=== PATIENT | female | born 1990 | race Caucasian/White ===

== ENCOUNTER 2019-08-25 11:25 | Emergency (ER) | payer OTHER ==
[2019-08-25 11:34] VITALS: BP 115/77
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
[2019-08-25] MEDS ORDERED: IBUPROFEN 600 MG TABLET PO STA (12:34)
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
== END 2019-08-25 13:48 | disposition home or self-care (01) ==
LOC: ED 11:25
DX: S93.402A Sprain of unspecified ligament of left ankle, initial encounter (principal); V00.818A Other accident with wheelchair (powered), initial encounter; Y93.01 Activity, walking, marching and hiking; Y99.0 Civilian activity done for income or pay
CPT/HCPCS: 1040M; 73610; 73630; 99283; A9270

== ENCOUNTER 2019-09-17 19:22 | Emergency (ER) | payer SELFPAY ==
[2019-09-17] MEDS ORDERED: HYDROcod/ACETAM 5/325 MG TABLET PO STA (19:41)
[2019-09-17] MEDS ORDERED: HYDROcod/ACET 5/325 Prepack 4 PO STA (19:41)
--- NOTE | 2019-09-17 19:42 | ED Physician Documentation ---
PD HPI LOWER EXT INJURY - Stated complaint Stated Complaint: RT FOOT INJURY - Chief complaint Chief Complaint: Trauma Ext - History obtained from History obtained from: Patient - History of Present Illness PD HPI LOW EXT INJURY LOCATION: Right (This morning she was walking and tripped and inverted her right foot and felt a pop and cannot walk or bear weight. No other injuries. Pain is severe. No possibility of .) Review of Systems Ears: reports: Reviewed and negative Cardiac: reports: Reviewed and negative Respiratory: reports: Reviewed and negative PD PAST MEDICAL HISTORY - Present Medications Home Medications: Ambulatory Orders Medication Instructions Recorded Confirmed Acetaminophen 650 mg PO Q6HR #30 tablet 08/25/19 Ibuprofen [Ibu] 600 mg PO Q6H PRN #30 tablet 08/25/19 Hydrocodone/Acetaminophen 1 - 2 each PO Q6H PRN #10 tablet 09/17/19 [Hydrocodon-Acetaminophen 5-325] - Allergies Allergies/Adverse Reactions: Allergies Allergy/AdvReac Type Severity Reaction Status Date / Time Penicillins Allergy Hives Verified 09/17/19 19:26 PD ED PE NORMAL - Vitals Vital signs reviewed: Yes - General General: Alert and oriented X 3, No acute distress - Extremities Extremities: Other (Proximal right fibula is nontender. She is very tender over the lateral malleolus and the fifth metatarsal head, no deformity. There is kind of diffuse swelling over the lateral proximal foot.) - Neuro Neuro: Alert and oriented X 3, Normal speech Results - Vitals Vitals: Vital Signs - 24 hr 09/17/19 19:26 Temperature 36.6 C Heart Rate 87 Respiratory 14 Rate Blood Pressure 120/71 O2 Saturation 100 Oxygen O2 Source Room air - Rads (name of study) X-rays of the right foot and ankle Radiology: EMP read contemporaneously (Normal) Departure - Departure Disposition: Home, Self Care Clinical Impression: Right foot sprain Qualifiers: Encounter type: initial encounter Qualified Code(s): S93.601A - Unspecified sprain of right foot, initial encounter Ankle sprain Qualifiers: Encounter type: initial encounter Involved ligament of ankle: unspecified ligament Laterality: right Qualified Code(s): S93.401A - Sprain of unspecified ligament of right ankle, initial encounter Condition: Good Record reviewed to determine appropriate education?: Yes Instructions: ED Sprain Ankle Prescriptions: Hydrocodone/Acetaminophen [Hydrocodon-Acetaminophen 5-325] 1 - 2 each PO Q6H PRN #10 tablet PRN Reason: pain Comments: Recheck with your doctor in a week if not better, return for new or worsening symptoms. Forms: Activity restrictions
--- NOTE | 2019-09-17 20:35 | XRAY Report ---
Reason: pain Procedure Date: 09/17/2019 Accession Number: [id number] / [id number] Procedure: XR - Ankle 3 View RT CPT Code: Final Report FULL RESULT: EXAM: RIGHT ANKLE RADIOGRAPHY EXAM DATE: 09/17/2019 07:55 PM. CLINICAL HISTORY: Pain. COMPARISON: ANKLE 3 VIEW LT 08/25/2019 11:37 AM FOOT 3 VIEW LT 08/25/2019 12:45 PM. TECHNIQUE: 3 views. FINDINGS: Bones: No acute fracture identified. There is a tiny plantar calcaneal spur. Joints: No effusion. No dislocation. The ankle mortise is normally aligned. Soft Tissues: There is mild soft tissue swelling. IMPRESSION: No acute osseus abnormality. RADIA
--- NOTE | 2019-09-17 20:43 | XRAY Report ---
Reason: foot inj Procedure Date: 09/17/2019 Accession Number: [id number] / [id number] Procedure: XR - Foot 3 View RT CPT Code: Final Report FULL RESULT: EXAM: RIGHT FOOT RADIOGRAPHY EXAM DATE: 09/17/2019 07:56 PM. CLINICAL HISTORY: Foot inj. COMPARISON: FOOT 3 VIEW LT 08/25/2019 12:45 PM ANKLE 3 VIEW RT 09/17/2019 7:33 PM. TECHNIQUE: 3 views. FINDINGS: Bones: No acute fracture identified. Joints: Normal. No subluxations. Soft Tissues: Mild soft tissue swelling. IMPRESSION: No acute osseus abnormality. RADIA
[2019-09-17 21:08] VITALS: BP 136/62
--- NOTE | 2019-09-20 08:28 | ED Physician Documentation ---
ED Addendum - Addendum Addendum: Patient called into the emergency department, she was given a work note at her last visit saying not to return to work till October 25, reviewing the records and x-rays, this was diagnosed as a sprain, and Dr. Caceres had a typo in his work note, he meant to put September 24. We will rewrite a new work note, patient will be informed that she should follow-up with her primary care provider for not improving pain for repeat films and examination for occult fracture. 09/20/19 08:25
== END 2019-09-17 21:08 | disposition home or self-care (01) ==
LOC: ED 19:22
DX: S93.601A Unspecified sprain of right foot, initial encounter (principal); S93.401A Sprain of unspecified ligament of right ankle, initial encounter; X50.1XXA Overexertion from prolonged static or awkward postures, initial encounter; Y93.01 Activity, walking, marching and hiking
CPT/HCPCS: 73610; 73630; 99283; A9270

== ENCOUNTER 2019-09-24 21:00 | Emergency (ER) | payer MEDICAID ==
--- NOTE | 2019-09-24 21:58 | ED Physician Documentation ---
PD HPI LOWER EXT INJURY - Stated complaint Stated Complaint: R FOOT SWELLING,FEVER - Chief complaint Chief Complaint: Ext Problem - History obtained from History obtained from: Patient, Family - History of Present Illness PD HPI LOW EXT INJURY LOCATION: Right, Ankle, Foot Type of injury: Fall, Twist Where injury occurred: Work Timing - onset: How many days ago (7) Timing - duration: Days (7) Timing - details: Abrupt onset, Still present Improved by: Rest, Immobilization Worsened by: Moving, Palpating Associated symptoms: Swelling Similar symptoms before: Diagnosis (foot sprain) Recently seen: Emergency Dept - Additional information Additional information: 29-year-old female who sprained her foot and ankle 1 week ago has gone back to work today wearing a walking boot. She was able to finish her shift spent most of the time sitting and was in extreme pain when she finished her shift. She is come to the emergency department now for a second x-ray as previously recommended. Review of Systems Constitutional: reports: Fever Ears: denies: Ear pain Nose: reports: Congestion Respiratory: denies: Cough GI: denies: Vomiting Musculoskeletal: reports: Extremity pain, Extremity swelling, Pain with weight bearing PD PAST MEDICAL HISTORY - Present Medications Home Medications: Ambulatory Orders Medication Instructions Recorded Confirmed Acetaminophen 650 mg PO Q6HR #30 tablet 08/25/19 Ibuprofen [Ibu] 600 mg PO Q6H PRN #30 tablet 08/25/19 Hydrocodone/Acetaminophen 1 - 2 each PO Q6H PRN #10 tablet 09/17/19 [Hydrocodon-Acetaminophen 5-325] traMADol [Ultram] 50 - 100 mg PO Q6H PRN #20 tablet 09/24/19 - Allergies Allergies/Adverse Reactions: Allergies Allergy/AdvReac Type Severity Reaction Status Date / Time amoxicillin Allergy Unknown Verified 09/24/19 21:04 Penicillins Allergy Hives Verified 09/24/19 21:03 PD ED PE NORMAL - Vitals Vital signs reviewed: Yes (normal ) - General General: Alert and oriented X 3, No acute distress, Well developed/nourished - HEENT HEENT: Atraumatic, PERRL, EOMI - Respiratory Respiratory: No respiratory distress - Derm Derm: Normal color, Warm and dry - Extremities Extremities: No deformity, Other (There is mild swelling to the dorsum of the right foot laterally. There is exagerated tenderness to the area and the distal n/v is intact. ) - Neuro Neuro: Alert and oriented X 3, copy manager 2-12 intact, No motor deficit, No sensory deficit, Normal speech Eye Opening: Spontaneous Motor: Obeys Commands Verbal: Oriented GCS Score: 15 - Psych Psych: Normal mood, Normal affect Results - Vitals Vitals: Vital Signs - 24 hr 09/24/19 09/24/19 21:04 22:52 Temperature 37.2 C 37.1 C Heart Rate 91 84 Respiratory 15 20 Rate Blood Pressure 101/64 118/77 O2 Saturation 97 99 Oxygen O2 Source Room air - Rads (name of study) foot Radiology: Prelim report reviewed (Impression: 1. No acute abnormality seen in the foot.), EMP read indepedently, See rad report PD MEDICAL DECISION MAKING - ED course Complexity details: reviewed results, re-evaluated patient, considered differential, d/w patient ED course: 29-year-old female with persistent pain in the right foot has no evidence of fracture on reexamination today and she is placed back into her boot with instructions to wear this for another week and she is given a note for work for no work or reduced use of the right leg for 1 week. She did ask for additional pain medication and I did provide her with a prescription for tramadol. 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
[2019-09-24 22:54] VITALS: BP 118/77
--- NOTE | 2019-09-24 22:59 | XRAY Report ---
Reason: persistent pain Procedure Date: 09/24/2019 Accession Number: [id number] / [id number] Procedure: XR - Foot 3 View RT CPT Code: Final Report FULL RESULT: EXAM: RIGHT FOOT RADIOGRAPHY EXAM DATE: 09/24/2019 10:44 PM. CLINICAL HISTORY: Persistent pain. COMPARISON: FOOT 3 VIEW RT 09/17/2019 7:36 PM. TECHNIQUE: 3 views. FINDINGS: Bones: No fracture seen. Plantar calcaneal osteophyte. Joints: No dislocation seen. Joint spaces appear intact. Soft Tissues: Grossly unremarkable. IMPRESSION: 1. No acute abnormality seen in the foot. RADIA
== END 2019-09-24 22:54 | disposition home or self-care (01) ==
LOC: ED 21:00
DX: S93.601A Unspecified sprain of right foot, initial encounter (principal); X58.XXXA Exposure to other specified factors, initial encounter
CPT/HCPCS: 99283; 99284

== ENCOUNTER 2020-02-24 21:06 | Emergency (ER) | payer MEDICAID ==
--- NOTE | 2020-02-24 21:20 | ED Physician Documentation ---
History of Present Illness - Stated complaint Stated Complaint: N/V ABD PX - Chief complaint Chief Complaint: Heent - History obtained from History obtained from: Patient - Additonal information Additional information: Patient comes emergency department complaining of left-sided dental pain in both the mandibular maxillary molars that started this afternoon. Patient states she has had pain through her throat and neck and has also felt nauseated. Patient is also complaining of low back pain and low abdominal pain. She states that she has not had any fevers or chills. She has a dentist in [place] whom she has not seen. Patient states she is otherwise healthy except for some arthritis in her low back. No other complaints at this time. No sick contacts. No cough or shortness of breath. Review of Systems Ten Systems: 10 systems reviewed and negative Constitutional: reports: Reviewed and negative Eyes: reports: Reviewed and negative Ears: reports: Reviewed and negative Nose: reports: Reviewed and negative Throat: reports: Dental pain / toothache Cardiac: reports: Reviewed and negative Respiratory: reports: Reviewed and negative GI: reports: Abdominal Pain : reports: Reviewed and negative Skin: reports: Reviewed and negative Musculoskeletal: reports: Back pain Neurologic: reports: Reviewed and negative Psychiatric: reports: Reviewed and negative Endocrine: reports: Reviewed and negative Immunocompromised: reports: Reviewed and negative PD PAST MEDICAL HISTORY - Past Surgical History 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 Medications Home Medications: Ambulatory Orders Medication Instructions Recorded Confirmed Clindamycin HCl [Clindamycin 300MG 300 mg PO Q6H #28 capsule 02/24/20 CAP] Cyclobenzaprine [Flexeril] 10 mg TID 02/24/20 02/24/20 Hydrocodone/Acetaminophen 1 - 2 each PO Q6H PRN #14 tablet 02/24/20 [Hydrocodon-Acetaminophen 5-325] Ondansetron Odt [Zofran] 4 mg TL Q6H PRN #10 tablet 02/24/20 - Allergies Allergies/Adverse Reactions: Allergies Allergy/AdvReac Type Severity Reaction Status Date / Time amoxicillin Allergy Unknown Verified 02/24/20 21:14 Penicillins Allergy Hives Verified 02/24/20 21:14 - Social History Does the pt smoke?: Yes Smoking Status: Current every day smoker Does the pt drink ETOH?: No Does the pt have substance abuse?: No - Immunizations Immunizations are current?: Yes - POLST Patient has POLST: No PD ED PE NORMAL - Vitals Vital signs reviewed: Yes - General General: Alert and oriented X 3, No acute distress (Patient appears mildly uncomfortable.), Well developed/nourished - HEENT HEENT: Atraumatic, PERRL, EOMI, Moist mucous membranes, Pharynx benign, Other (Patient has poor dentition of her molars on the left maxillary and mandibular areas. No gingival edema or fluctuance, the patient does have tenderness. No swelling of the floor of the mouth. No tenderness there. No buccal edema or fluctuance. No mass. Pharynx is clear. No oral lesions.) - Neck Neck: Supple, no meningeal sign - Cardiac Cardiac: RRR, No murmur, Strong equal pulses - Respiratory Respiratory: No respiratory distress, Clear bilaterally - Abdomen Abdomen: Soft, Non distended, Other (Moderate, diffuse lower abdominal, no rebound or guarding.) - Back Back: Other (Bilateral CVA tenderness, mild.) - Derm Derm: Normal color, Warm and dry, No rash - Extremities Extremities: No deformity, No edema, No calf tenderness / cord - Neuro Neuro: Alert and oriented X 3, Other (Grossly normal) - Psych Psych: Normal mood, Normal affect Results - Vitals Vitals: Oxygen O2 Source Room air - Labs Labs: Laboratory Tests 02/24/20 21:35 Urine Color YELLOW Urine Clarity CLEAR Urine pH 7.0 Ur Specific [place] 1.020 Urine Protein NEGATIVE Urine Glucose (UA) NEGATIVE Urine Ketones NEGATIVE Urine Occult Blood NEGATIVE Urine Nitrite NEGATIVE Urine Bilirubin NEGATIVE Urine Urobilinogen 0.2 (NORMAL) Ur Leukocyte Esterase NEGATIVE Ur Microscopic Review NOT INDICATED Urine Culture Comments NOT INDICATED PD MEDICAL DECISION MAKING - ED course Complexity details: reviewed results, re-evaluated patient, considered differential, d/w patient ED course: Patient was given IV fluids, Zofran, and worked up with urinalysis, which was negative. We have discussed the need for dental follow-up. Pt is to take abx at home and call for an appointment as soon as possible. We have discussed the usual indications for return. Departure - Departure Disposition: 01 Home, Self Care Clinical Impression: Pain due to dental caries Condition: Stable Instructions: ED Tooth Pain Prescriptions: Clindamycin HCl [Clindamycin 300MG CAP] 300 mg PO Q6H #28 capsule Hydrocodone/Acetaminophen [Hydrocodon-Acetaminophen 5-325] 1 - 2 each PO Q6H PRN #14 tablet PRN Reason: pain Ondansetron Odt [Zofran] 4 mg TL Q6H PRN #10 tablet PRN Reason: Nausea / Vomiting Comments: Your urinalysis looks good. There is no evidence of infection. You do not have a fever here in the emergency department, nor is your face swollen at this time. We will treat you with antibiotics for your dental infection. I have given you a prepack and a small prescription for pain and nausea medication. Please take these as needed, along with ibuprofen. You should take the antibiotics every day, as directed, until gone. Please call your dentist's office to make a dental appointment for as soon as possible. Discharge Date/Time: 02/24/20 23:10
[2020-02-24] MEDS ORDERED: ONDANSETRON 4 MG/2 ML VIAL IVP STA (21:26)
[2020-02-24] MEDS ORDERED: SODIUM CHLORIDE 0.9% 1,000 ML IV STA (21:26)
[2020-02-24 21:52] LABS: BILIRUBIN,URINE NEGATIVE (NEGATIVE); GLUCOSE, URINE (UA) NEGATIVE (NEGATIVE); KETONES,URINE (UA) NEGATIVE (NEGATIVE); LEUKOCYTE ESTERASE, URINE NEGATIVE (NEGATIVE); NITRITE,URINE NEGATIVE (NEGATIVE); OCCULT BLOOD,URINE NEGATIVE (NEGATIVE); PROTEIN,URINE NEGATIVE (NEGATIVE); UROBILINOGEN,URINE 0.2 (NORMAL) E.U./dL (NORMAL)
[2020-02-24 21:53] LABS: CLARITY,URINE CLEAR (CLEAR)
[2020-02-24] MEDS ORDERED: CLINDAMYCIN 150 MG CAPSULE PO STA (22:55)
[2020-02-24] MEDS ORDERED: KETOROLAC 30 MG/ML VIAL IVP STA (22:55)
[2020-02-24] MEDS ORDERED: HYDROcod/ACET 5/325 Prepack 4 PO STA (22:56)
[2020-02-24] MEDS ORDERED: ONDANSETRON ODT 4 MG Prepack 2 TL PRN (22:56)
[2020-02-24 23:10] VITALS: BP 126/84
== END 2020-02-24 23:10 | disposition home or self-care (01) ==
LOC: EDUNIT# → ED 21:06
DX: K04.7 Periapical abscess without sinus (principal); K02.9 Dental caries, unspecified; R11.0 Nausea; R10.30 Lower abdominal pain, unspecified; M54.5 Low back pain; F17.200 Nicotine dependence, unspecified, uncomplicated
CPT/HCPCS: 81003; 96361; 96374; 96375; 99283; A9270; 81001; 87086

== ENCOUNTER 2020-04-05 23:26 | Emergency (ER) | payer MEDICAID ==
[2020-04-05 23:49] LABS: RAPID STREP SCREEN Negative (Negative)
--- NOTE | 2020-04-06 00:02 | ED Physician Documentation ---
History of Present Illness - Stated complaint Stated Complaint: SORE THROAT W/ WHITE SPOTS - Chief complaint Chief Complaint: Heent - History obtained from History obtained from: Patient (The patient is a 29-year-old female presents with a 1 day history of sore throat and white spots on the left side of her throat without fevers, headache or neck pain.) Review of Systems Constitutional: reports: Reviewed and negative Eyes: reports: Reviewed and negative Ears: reports: Reviewed and negative Nose: reports: Reviewed and negative Throat: reports: Sore throat Cardiac: reports: Reviewed and negative Respiratory: reports: Reviewed and negative GI: reports: Reviewed and negative : reports: Reviewed and negative Skin: reports: Reviewed and negative Musculoskeletal: reports: Reviewed and negative Neurologic: reports: Reviewed and negative Psychiatric: reports: Reviewed and negative Endocrine: reports: Reviewed and negative Immunocompromised: reports: Reviewed and negative PD PAST MEDICAL HISTORY - Past Surgical History 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 Medications Home Medications: Ambulatory Orders Medication Instructions Recorded Confirmed Clindamycin HCl [Clindamycin 300MG 300 mg PO Q6H #28 capsule 02/24/20 CAP] Cyclobenzaprine [Flexeril] 10 mg TID 02/24/20 02/24/20 Hydrocodone/Acetaminophen 1 - 2 each PO Q6H PRN #14 tablet 02/24/20 [Hydrocodon-Acetaminophen 5-325] Ondansetron Odt [Zofran] 4 mg TL Q6H PRN #10 tablet 02/24/20 - Allergies Allergies/Adverse Reactions: Allergies Allergy/AdvReac Type Severity Reaction Status Date / Time amoxicillin Allergy Unknown Verified 04/05/20 23:30 Penicillins Allergy Hives Verified 04/05/20 23:30 - Social History Does the pt smoke?: Yes Smoking Status: Current every day smoker Does the pt drink ETOH?: No Does the pt have substance abuse?: No - Immunizations Immunizations are current?: Yes - POLST Patient has POLST: No PD ED PE NORMAL - Vitals Vital signs reviewed: Yes - General General: Alert and oriented X 3, No acute distress, Well developed/nourished - HEENT HEENT: Atraumatic, PERRL, EOMI, Ears normal, Dentition benign, Other (The oropharynx is mildly erythematous there is one exudate in the left tonsillar pillar the uvula is midline there is no swelling there is a normal voice tolerating secretions no signs of ANUG or Elio's normal voice, no anterior posterior cervical lymphadenopathy.) - Neck Neck: Supple, no meningeal sign - Cardiac Cardiac: RRR, No murmur - Respiratory Respiratory: No respiratory distress, Clear bilaterally - Abdomen Abdomen: Normal bowel sounds, Soft, Non tender, Non distended, No organomegaly - Derm Derm: Warm and dry - Extremities Extremities: No deformity - Neuro Neuro: Alert and oriented X 3 - Psych Psych: Normal mood, Normal affect Results - Vitals Vitals: Vital Signs - 24 hr 04/05/20 23:30 Temperature 36.5 C Heart Rate 86 Respiratory 16 Rate Blood Pressure 129/95 H O2 Saturation 98 Oxygen O2 Source Room air - Labs Labs: Laboratory Tests 04/05/20 23:34 Group A Strep Rapid Negative PD MEDICAL DECISION MAKING - ED course Complexity details: considered differential (Rapid strep testing is negative. No signs of peritonsillar abscess or prevertebral abscess or ANUG or Elio's on physical exam I did offer a dose of Decadron with the patient did a would like to be treated with we would encourage hydration antipyretics and close follow- up.) Departure - Departure Disposition: 01 Home, Self Care Clinical Impression: Pharyngitis Qualifiers: Pharyngitis/tonsillitis etiology: unspecified etiology Qualified Code(s): J02.9 - Acute pharyngitis, unspecified Condition: Stable Instructions: ED Pharyngitis Viral Follow-Up: your, doctor [Other] Comments: Hydrate well, take either ibuprofen or Tylenol as needed for pain or fever follow-up with a primary care provider this week if you are not improving.
[2020-04-06] MEDS ORDERED: CHERRY SYRUP 10 ML UDC PO ONE (00:06)
[2020-04-06] MEDS ORDERED: DEXAMETHASONE 10 MG/ML VIAL PO STA (00:06)
[2020-04-06 00:21] VITALS: BP 130/77
== END 2020-04-06 00:21 | disposition home or self-care (01) ==
LOC: ED 23:26
DX: J02.9 Acute pharyngitis, unspecified (principal); F17.200 Nicotine dependence, unspecified, uncomplicated
CPT/HCPCS: 87070; 87077; 87430; 99283; 99284; A9270

== ENCOUNTER 2020-04-16 08:00 | Emergency (ER) | payer MEDICAID ==
--- NOTE | 2020-04-16 08:04 | ED Physician Documentation ---
PD HPI URI - Stated complaint Stated Complaint: THROAT / ABD PX - History obtained from History obtained from: Patient - History of Present Illness Timing - onset: How many days ago (Has had recurrent significant sore throat the past couple of days. Had a had this about a week ago and had throat culture showing group C strep. She was placed on a Z-David and states she had moderate but not complete improvement during that time. Now symptoms worse again.) Timing duration: Days Timing details: Gradual onset, Still present Associated symptoms: Sore throat. No: Fever, Chills, Dry cough, NVD (But she did have some upset stomach generally in the mid to upper abdomen about the fourth or fifth day of the antibiotic course not quite as bad now) Contributing factors: No: Sick contact, Immunocompromised, COPD / asthma Similar symptoms before: Has not had sx before Recently seen: Emergency Dept Review of Systems Constitutional: reports: Chills. denies: Fever Nose: denies: Rhinorrhea / runny nose, Congestion, Sinus pressure / pain Throat: reports: Sore throat Respiratory: denies: Cough GI: reports: Abdominal Pain, Nausea. denies: Abdominal Swelling, Vomiting, Diarrhea Skin: denies: Rash, Lesions Neurologic: reports: Generalized weakness. 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 - Present Medications Home Medications: Ambulatory Orders Medication Instructions Recorded Confirmed Clindamycin HCl [Clindamycin 300MG 300 mg PO Q6H #28 capsule 02/24/20 CAP] Cyclobenzaprine [Flexeril] 10 mg TID 02/24/20 02/24/20 Hydrocodone/Acetaminophen 1 - 2 each PO Q6H PRN #14 tablet 02/24/20 [Hydrocodon-Acetaminophen 5-325] Ondansetron Odt [Zofran] 4 mg TL Q6H PRN #10 tablet 02/24/20 Cephalexin [Keflex] 500 mg PO TID #21 capsule 04/16/20 Docusate Sodium 100 mg PO DAILY #25 capsule 04/16/20 Hydrocodone/Acetaminophen [[place] 1 each PO Q6H PRN #12 tablet 04/16/20 5-325 Tablet] Ondansetron Odt [Zofran] 4 mg TL Q6H PRN #10 tablet 04/16/20 dexAMETHasone [Decadron] 4 mg PO DAILY #5 tablet 04/16/20 - Allergies Allergies/Adverse Reactions: Allergies Allergy/AdvReac Type Severity Reaction Status Date / Time amoxicillin Allergy Unknown Verified 04/16/20 08:12 Penicillins Allergy Hives Verified 04/16/20 08:12 - Social History Does the pt smoke?: Yes Smoking Status: Current every day smoker Does the pt drink ETOH?: No Does the pt have substance abuse?: No - Immunizations Immunizations are current?: Yes - POLST Patient has POLST: No PD ED PE NORMAL - Vitals Vital signs reviewed: Yes - General General: Alert and oriented X 3, No acute distress, Well developed/nourished - HEENT HEENT: Moist mucous membranes. No: Pharynx benign (Redness without any focal swelling noted in the tonsillar area, particularly on the right. Uvula is normal) - Neck Neck: Supple, no meningeal sign, No adenopathy - Cardiac Cardiac: RRR, No murmur - Respiratory Respiratory: Clear bilaterally - Abdomen Abdomen: Normal bowel sounds, Soft, Non tender, Non distended Results - Vitals Vitals: Oxygen O2 Source Room air PD MEDICAL DECISION MAKING - ED course Complexity details: reviewed old records, considered differential (She had incomplete resolution of her group C strep tonsillitis and now symptoms back again. Some mild general abdominal discomfort after antibiotic course. No diarrhea or vomiting.), d/w patient Departure - Departure Disposition: 01 Home, Self Care Clinical Impression: Recurrent streptococcal tonsillitis Nausea and vomiting Qualifiers: Vomiting type: unspecified Vomiting Intractability: non-intractable Qualified Code(s): R11.2 - Nausea with vomiting, unspecified Condition: Stable Record reviewed to determine appropriate education?: Yes Prescriptions: dexAMETHasone [Decadron] 4 mg PO DAILY #5 tablet Docusate Sodium 100 mg PO DAILY #25 capsule Cephalexin [Keflex] 500 mg PO TID #21 capsule Hydrocodone/Acetaminophen [[place] 5-325 Tablet] 1 each PO Q6H PRN #12 tablet PRN Reason: Pain Ondansetron Odt [Zofran] 4 mg TL Q6H PRN #10 tablet PRN Reason: Nausea / Vomiting Comments: Stay well-hydrated. Use Tylenol if needed for pain and add hydrocodone if needed for worse pain. Ondansetron if needed for nausea. Cephalexin antibiotic 3 times a day for a week for the infection. Decadron daily for 5 more days for the inflammation and that should help pains generally as well. Docusate stool softener twice daily for the first few days and then daily after that to help with the constipation. Off work today and tomorrow if needed. Recheck if not improving well over the next 2 to 3 days and resolved within 3 to 5 days. Forms: Activity restrictions Discharge Date/Time: 04/16/20 08:54
[2020-04-16 08:12] VITALS: BP 123/79
[2020-04-16] MEDS ORDERED: cephALEXin 250 MG CAPSULE PO STA (08:36)
[2020-04-16] MEDS ORDERED: ACETAMINOPHEN 325 MG TABLET PO STA (08:36)
[2020-04-16] MEDS ORDERED: CHERRY SYRUP 10 ML UDC PO ONE (08:36)
[2020-04-16] MEDS ORDERED: DEXAMETHASONE 10 MG/ML VIAL PO STA (08:36)
[2020-04-16] MEDS ORDERED: ONDANSETRON ODT 4 MG TABLET TL STA (08:36)
== END 2020-04-16 08:54 | disposition home or self-care (01) ==
LOC: ED 08:00
DX: J03.01 Acute recurrent streptococcal tonsillitis (principal); R11.2 Nausea with vomiting, unspecified; F17.200 Nicotine dependence, unspecified, uncomplicated
CPT/HCPCS: 99283; 99284; A9270; Q0162

== ENCOUNTER 2020-07-02 15:39 | Emergency (ER) | payer MEDICAID ==
--- NOTE | 2020-07-02 17:43 | XRAY Report ---
PROCEDURE: Foot 3 View RT INDICATIONS: pain in the heel TECHNIQUE: 3 views of the foot were acquired. COMPARISON: 09/24/2019 FINDINGS: Bones: No fractures or dislocations. There is a small plantar calcaneal enthesophyte which appears slightly increased in size compared to the prior study. No suspicious bony lesions. Soft tissues: No tibiotalar joint effusion. Achilles tendon appears normal. IMPRESSION: 1. No fracture or dislocation. 2. Small plantar calcaneal enthesophyte slightly increased in size compared to the prior study. Findi ngs may be associated with plantar fasciitis. Reviewed by: Yfn Blackwell MD on 07/02/2020 4:42 PM [facility] Approved by: Yfn Blackwell MD on 07/02/2020 4:42 PM [facility] Station ID: [id number]
--- NOTE | 2020-07-02 17:44 | ED Physician Documentation ---
History of Present Illness - Stated complaint Stated Complaint: RT FOOT PX - Chief complaint Chief Complaint: Ext Problem - Additonal information Additional information: 29-year-old female presents to the emergency department for 1 month of right foot pain that starts on the bottom of the heel and radiates forward. It is worse with any pressure or ambulation. Denies any recent falls or trauma. She feels that the heel is swollen. No erythema or fevers. Review of Systems Constitutional: reports: Reviewed and negative Ears: reports: Reviewed and negative Nose: reports: Reviewed and negative Throat: reports: Reviewed and negative Cardiac: reports: Reviewed and negative : reports: Reviewed and negative Skin: reports: Reviewed and negative Musculoskeletal: reports: Extremity pain (Tenderness with palpation on the heel of the right foot. No swelling or erythema. Full range of motion of the ankle in all planes. Normal dorsi and plantar flexion. 2+ DP pulse. 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 - Present Medications Home Medications: Ambulatory Orders Medication Instructions Recorded Confirmed Clindamycin HCl [Clindamycin 300MG 300 mg PO Q6H #28 capsule 02/24/20 CAP] Cyclobenzaprine [Flexeril] 10 mg TID 02/24/20 02/24/20 Hydrocodone/Acetaminophen 1 - 2 each PO Q6H PRN #14 tablet 02/24/20 [Hydrocodon-Acetaminophen 5-325] Ondansetron Odt [Zofran] 4 mg TL Q6H PRN #10 tablet 02/24/20 Cephalexin [Keflex] 500 mg PO TID #21 capsule 04/16/20 Docusate Sodium 100 mg PO DAILY #25 capsule 04/16/20 Hydrocodone/Acetaminophen [[place] 1 each PO Q6H PRN #12 tablet 04/16/20 5-325 Tablet] Ondansetron Odt [Zofran] 4 mg TL Q6H PRN #10 tablet 04/16/20 dexAMETHasone [Decadron] 4 mg PO DAILY #5 tablet 04/16/20 Clindamycin HCl [Clindamycin 300MG 300 mg PO TID 10 Days #30 capsule 04/23/20 CAP] - Allergies Allergies/Adverse Reactions: Allergies Allergy/AdvReac Type Severity Reaction Status Date / Time amoxicillin Allergy Unknown Verified 07/02/20 15:54 Penicillins Allergy Hives Verified 07/02/20 15:54 - Social History Does the pt smoke?: Yes Smoking Status: Current every day smoker Does the pt drink ETOH?: No Does the pt have substance abuse?: No - Immunizations Immunizations are current?: Yes - POLST Patient has POLST: No Results - Vitals Vitals: Vital Signs - 24 hr 07/02/20 15:50 Temperature 36.5 C Heart Rate 80 Respiratory 14 Rate Blood Pressure 115/67 O2 Saturation 98 Oxygen O2 Source Room air - Rads (name of study) rightfoot Radiology: EMP read indepedently (No acute fracture or dislocation. Calcaneal spur noted) PD MEDICAL DECISION MAKING - ED course Complexity details: reviewed results, considered differential, d/w patient ED course: 29-year-old female presents the emergency department with 1 month of right heel pain worse with bearing weight and ambulation. No swelling or erythema to suggest infection. X-ray does not reveal any foreign body fracture or dislocation. There is a noted calcaneal spur. With history and exam I am most suspicious that she likely has a plantar fasciitis. I will give crutches and recommend weight nonbearing for a few days to see if that improves pain continue Tylenol and ibuprofen at home. Recommend close follow-up with podiatry Departure - Departure Disposition: 01 Home, Self Care Clinical Impression: Foot pain, right, Calcaneal apophysitis Condition: Stable Record reviewed to determine appropriate education?: Yes Instructions: Heel Pain, Plantar Fasciitis Tx, ED Heel Spur Comments: Marga the x-ray of your foot does show a heel spur but there are no other worrisome findings. I suspected that you do have plantar fasciitis. It is very important that you follow-up with a occupational health specialist or foot doctor for long-term management. I think your pain will improve markedly over the next week if you are able to stay off of it and avoid weightbearing. Please use the crutches provided.
[2020-07-02 18:25] VITALS: BP 113/76
== END 2020-07-02 18:35 | disposition home or self-care (01) ==
LOC: ED 15:39
DX: M79.671 Pain in right foot (principal); M92.8 Other specified juvenile osteochondrosis; M77.31 Calcaneal spur, right foot; F17.200 Nicotine dependence, unspecified, uncomplicated
CPT/HCPCS: 99283

== ENCOUNTER 2020-07-22 18:46 | Outpatient (CLI) | payer MEDICAID | END 2020-07-22 18:47 | disposition critical access hospital (66) | LOC: EMS 18:46 | PROVIDERS: ATTEND Surgery | DX: J02.9 Acute pharyngitis, unspecified (principal); R50.9 Fever, unspecified; R06.02 Shortness of breath | CPT/HCPCS: A0425; A0429; A0999 ==

== ENCOUNTER 2020-07-22 19:09 | Emergency (ER) | payer MEDICAID ==
[2020-07-22 19:37] LABS: RAPID STREP SCREEN Negative (Negative)
--- NOTE | 2020-07-22 20:04 | ED Physician Documentation ---
PD HPI URI - Stated complaint Stated Complaint: FEVER/ SORE THROAT - Chief complaint Chief Complaint: Resp - History obtained from History obtained from: Patient - History of Present Illness Timing - onset: Yesterday Timing details: Abrupt onset, Still present Associated symptoms: Fever, Chills, Sore throat, Swollen nodes, Other (left flank pain). 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 Medications Home Medications: Ambulatory Orders Medication Instructions Recorded Confirmed Clindamycin HCl [Clindamycin 300MG 300 mg PO Q6H #28 capsule 02/24/20 CAP] Cyclobenzaprine [Flexeril] 10 mg TID 02/24/20 02/24/20 Hydrocodone/Acetaminophen 1 - 2 each PO Q6H PRN #14 tablet 02/24/20 [Hydrocodon-Acetaminophen 5-325] Ondansetron Odt [Zofran] 4 mg TL Q6H PRN #10 tablet 02/24/20 Cephalexin [Keflex] 500 mg PO TID #21 capsule 04/16/20 Docusate Sodium 100 mg PO DAILY #25 capsule 04/16/20 Hydrocodone/Acetaminophen [[place] 1 each PO Q6H PRN #12 tablet 04/16/20 5-325 Tablet] Ondansetron Odt [Zofran] 4 mg TL Q6H PRN #10 tablet 04/16/20 dexAMETHasone [Decadron] 4 mg PO DAILY #5 tablet 04/16/20 Clindamycin HCl [Clindamycin 300MG 300 mg PO TID 10 Days #30 capsule 04/23/20 CAP] Clindamycin HCl [Clindamycin 300MG 300 mg PO Q6H #28 capsule 07/22/20 CAP] Hydrocodone/Acetaminophen 1 each PO Q6H PRN #15 tablet 07/22/20 [Hydrocodone-Acetamin 5-325 mg] dexAMETHasone [Decadron] 4 mg PO DAILY #7 tablet 07/22/20 - Allergies Allergies/Adverse Reactions: Allergies Allergy/AdvReac Type Severity Reaction Status Date / Time amoxicillin Allergy Unknown Verified 07/02/20 15:54 Penicillins Allergy Hives Verified 07/02/20 15:54 - Social History Does the pt smoke?: Yes Smoking Status: Current every day smoker Does the pt drink ETOH?: No Does the pt have substance abuse?: No - Immunizations Immunizations are current?: Yes - POLST Patient has POLST: No PD ED PE NORMAL - Vitals Vital signs reviewed: Yes - General General: Alert and oriented X 3, Well developed/nourished, Other (appears ill with slight distortion of voice. ) - HEENT HEENT: No: Pharynx benign (She has moderately swollen tonsils on both sides with exudate on both. No peritonsillar swelling or uvular deviation. She has anterior adenopathy that is tender. There is no tenderness in the lower anterior neck area.) - Neck Neck: No bruit - Cardiac Cardiac: No murmur. No: RRR (regular but tachycardia) - Respiratory Respiratory: Clear bilaterally - Abdomen Abdomen: Soft, Non tender - Back Back: No CVA TTP - Derm Derm: Normal color, Warm and dry, No rash - Neuro Neuro: Alert and oriented X 3, No motor deficit, Normal speech Results - Vitals Vitals: Vital Signs - 24 hr 07/22/20 07/22/20 19:13 20:06 Temperature 37.8 C H Heart Rate 123 H 114 H Respiratory 24 16 Rate Blood Pressure 120/72 112/72 O2 Saturation 98 100 Oxygen O2 Source Room air - Labs Labs: Laboratory Tests 07/22/20 07/22/20 19:15 20:10 Urine Color YELLOW Urine Clarity CLEAR Urine pH 8.5 H Ur Specific [place] 1.020 Urine Protein NEGATIVE Urine Glucose (UA) NEGATIVE Urine Ketones NEGATIVE Urine Occult Blood TRACE-LYSE Urine Nitrite NEGATIVE Urine Bilirubin NEGATIVE Urine Urobilinogen 0.2 (NORMAL) Ur Leukocyte Esterase NEGATIVE Ur Microscopic Review NOT INDICATED Urine Culture Comments NOT INDICATED Group A Strep Rapid Negative PD MEDICAL DECISION MAKING - ED course Complexity details: reviewed results (Your urine looks good without any signs of infection separately nor any protein or blood to suggest glomerulonephritis.), considered differential (She has had previous symptoms several months ago related to group C strep that did not show until culture. She is allergic to penicillin and also had a reaction to cephalexin on previous treatment and subsequently got better with clindamycin. We will treat her with that plus steroids plus pain med), d/w patient Departure - Departure Disposition: 01 Home, Self Care Clinical Impression: Exudative tonsillitis Condition: Stable Record reviewed to determine appropriate education?: Yes Instructions: ED Strep Pharyngitis Poss Follow-Up: [facility] [Provider Group] [facility] [Provider Group] Prescriptions: Clindamycin HCl [Clindamycin 300MG CAP] 300 mg PO Q6H #28 capsule dexAMETHasone [Decadron] 4 mg PO DAILY #7 tablet Hydrocodone/Acetaminophen [Hydrocodone-Acetamin 5-325 mg] 1 each PO Q6H PRN #15 tablet PRN Reason: Pain Comments: Clinically this does likely appear to be another episode of the nongroup A strep infection like you have had previously. As such we will treat you with clindamycin which was the antibiotic you eventually got better on previously. Drink lots of fluids. Decadron steroid daily failure as directed to decrease swelling and inflammation. Tylenol every 4-6 hours for pain or hydrocodone if needed for worse pain. I would anticipate improvement of the next several days and resolution by 3 to 5 days. Recheck if not better in that timeframe. Forms: Activity restrictions
[2020-07-22 20:33] LABS: BILIRUBIN,URINE NEGATIVE (NEGATIVE); GLUCOSE, URINE (UA) NEGATIVE (NEGATIVE); KETONES,URINE (UA) NEGATIVE (NEGATIVE); LEUKOCYTE ESTERASE, URINE NEGATIVE (NEGATIVE); NITRITE,URINE NEGATIVE (NEGATIVE); OCCULT BLOOD,URINE TRACE-LYSE (NEGATIVE); PH,URINE 8.5 PH (5.0-7.5); PROTEIN,URINE NEGATIVE (NEGATIVE); UROBILINOGEN,URINE 0.2 (NORMAL) E.U./dL (NORMAL)
[2020-07-22] MEDS ORDERED: CHERRY SYRUP 10 ML UDC PO ONE (20:33)
[2020-07-22] MEDS ORDERED: HYDROmorphone 2 MG/ML VIAL IM STA (20:33)
[2020-07-22] MEDS ORDERED: CLINDAMYCIN 150 MG CAPSULE PO STA (20:33)
[2020-07-22] MEDS ORDERED: DEXAMETHASONE 10 MG/ML VIAL PO STA (20:33)
[2020-07-22] MEDS ORDERED: KETOROLAC 30 MG/ML VIAL IM STA (20:33)
[2020-07-22 20:35] LABS: CLARITY,URINE CLEAR (CLEAR)
[2020-07-22 21:04] VITALS: BP 110/70
== END 2020-07-22 21:03 | disposition home or self-care (01) ==
LOC: EDUNIT# → ED 19:09
DX: J03.90 Acute tonsillitis, unspecified (principal); F17.200 Nicotine dependence, unspecified, uncomplicated
CPT/HCPCS: 81003; 87070; 87430; 96372; 99284; A9270; J1170; 81001; 87086

== ENCOUNTER 2020-10-05 21:46 | Emergency (ER) | payer MEDICAID ==
[2020-10-05 22:28] LABS: BILIRUBIN,URINE NEGATIVE (NEGATIVE); GLUCOSE, URINE (UA) NEGATIVE (NEGATIVE); KETONES,URINE (UA) NEGATIVE (NEGATIVE); LEUKOCYTE ESTERASE, URINE NEGATIVE (NEGATIVE); NITRITE,URINE NEGATIVE (NEGATIVE); OCCULT BLOOD,URINE NEGATIVE (NEGATIVE); PROTEIN,URINE NEGATIVE (NEGATIVE); UROBILINOGEN,URINE 0.2 (NORMAL) E.U./dL (NORMAL)
[2020-10-05 22:31] LABS: CLARITY,URINE CLEAR (CLEAR); HCG UR QUAL NEGATIVE
[2020-10-05 22:32] LABS: BASOPHILS # (AUTO) 0.1 10^3/uL (0.0-0.1); BASOPHILS % (AUTO) 0.4 %; EOSINOPHILS # (AUTO) 0.2 10^3/uL (0.0-0.7); EOSINOPHILS % (AUTO) 1.8 %; HGB - HEMOGLOBIN 15.4 g/dL (12.0-16.0); LYMPHOCYTES # (AUTO) 3.4 10^3/uL (1.5-3.5); LYMPHOCYTES % (AUTO) 26.7 %; MEAN CORPUSCULAR HEMOGLOBIN 30.3 pg (27.0-31.0); MEAN CORPUSCULAR HGB CONC 33.8 g/dL (32.0-36.0); MEAN CORPUSCULAR VOLUME 89.4 fL (81.0-99.0); MEAN PLATELET VOLUME 9.4 fL (7.9-10.8); MONOCYTES # (AUTO) 0.8 10^3/uL (0.0-1.0); MONOCYTES % (AUTO) 6.6 %; NEUTROPHILS % (AUTO) 63.9 %; PLT - PLATELET COUNT 434 10^3/uL (130-450); RED BLOOD COUNT 5.09 10^6/uL (4.20-5.40); RED CELL DISTRIBUTION WIDTH 12.2 % (12.0-15.0); WHITE BLOOD COUNT 12.6 x10^3/uL (4.8-10.8)
[2020-10-05 22:45] LABS: ALBUMIN 4.6 g/dL (3.2-5.5); BILIRUBIN,TOTAL 0.6 mg/dL (0.2-1.0); CALCIUM 9.7 mg/dL (8.5-10.3); CREATININE 0.7 mg/dL (0.4-1.0); TOTAL PROTEIN 9.1 g/dL (6.7-8.2)
--- NOTE | 2020-10-05 22:46 | ED Physician Documentation ---
PD HPI ABD PAIN - Stated complaint Stated Complaint: ABD PX - Chief complaint Chief Complaint: Abd Pain - History obtained from History obtained from: Patient - History of Present Illness Timing - onset: Yesterday Timing - details: Gradual onset, Still present (consistent), Waxing and waning Quality: Cramping, Aching, Fullness/distended Location: Other (lower abd) Improved by: Laying still, BM. No: Vomiting Worsened by: Eating, Moving, Palpation Associated symptoms: Nausea, Vomiting, Hematochezia (noted loose BMs with dark clots of blood. No vaginal bleeding.). No: Fever Similar symptoms before: No diagnosis (has had intermittent similar cramps lasting few hours at a time, 2-3 times weekly for past few months. No prior blood in stools and has not had it last this long.) Recently seen: Not recently seen Review of Systems Constitutional: denies: Fever, Chills, Myalgias Nose: denies: Rhinorrhea / runny nose, Congestion Throat: denies: Sore throat Respiratory: denies: Cough GI: reports: Abdominal Pain, Nausea, Vomiting, Bloody / black stool (dark clots today few times) : denies: Dysuria, Frequency, Discharge, Vaginal bleeding Neurologic: reports: Generalized weakness. 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 Medications Home Medications: Ambulatory Orders Medication Instructions Recorded Confirmed Cyclobenzaprine [Flexeril] 10 mg ORAL TID PRN 02/24/20 02/24/20 Docusate Sodium 100Mg Capsule 100 mg PO DAILY #20 capsule 10/06/20 [Colace 100Mg Capsule] HYDROcod/ACETAM 5/325 [[place] 5/325] 1 ea PO Q6H PRN #18 tablet 10/06/20 Sulfamethox/Trimeth 800/160 1 each PO BID #10 tablet 10/06/20 [Bactrim Ds 800/160] dexAMETHasone [Decadron] 4 mg PO DAILY #5 tablet 10/06/20 metroNIDAZOLE [Flagyl] 250 mg PO BID #10 tablet 10/06/20 - Allergies Allergies/Adverse Reactions: Allergies Allergy/AdvReac Type Severity Reaction Status Date / Time amoxicillin Allergy Unknown Verified 01/11/21 21:58 Penicillins Allergy Hives Verified 10/05/20 21:58 - Social History Does the pt smoke?: Yes Smoking Status: Current every day smoker Does the pt drink ETOH?: No Does the pt have substance abuse?: No - Immunizations Immunizations are current?: Yes - POLST Patient has POLST: No PD ED PE NORMAL - Vitals Vital signs reviewed: Yes - General General: Alert and oriented X 3, No acute distress, Well developed/nourished - Neck Neck: Supple, no meningeal sign, No adenopathy - Cardiac Cardiac: RRR, No murmur - Respiratory Respiratory: Clear bilaterally - Abdomen Abdomen: Normal bowel sounds, Soft, Non distended, No organomegaly, Other (lower abd tender left more than right with some local guarding. No percussion tenderness. ) - Female Female : Deferred - Rectal Rectal: Deferred - Back Back: No CVA TTP - Derm Derm: Normal color Results - Vitals Vitals: Vital Signs - 24 hr 10/05/20 10/05/20 10/06/20 21:58 23:24 00:20 Temperature 36.5 C Heart Rate 84 83 89 Respiratory 16 16 18 Rate Blood Pressure 124/86 H 129/81 H 129/89 H O2 Saturation 99 100 100 10/06/20 10/06/20 01:34 02:27 Temperature Heart Rate 85 102 H Respiratory 18 16 Rate Blood Pressure 98/66 112/84 H O2 Saturation 100 100 Oxygen O2 Source Room air - Labs Labs: Laboratory Tests 10/05/20 10/05/20 10/05/20 22:21 22:25 22:25 WBC 12.6 H RBC 5.09 Hgb 15.4 Hct 45.5 MCV 89.4 MCH 30.3 MCHC 33.8 RDW 12.2 Plt Count 434 MPV 9.4 Neut # (Auto) 8.0 H Lymph # (Auto) 3.4 [place] # (Auto) 0.8 Eos # (Auto) 0.2 Baso # (Auto) 0.1 Absolute Nucleated RBC 0.00 Nucleated RBC % 0.0 Sodium 138 Potassium 3.8 Chloride 100 L Carbon Dioxide 28 Anion Gap 10.0 BUN 12 Creatinine 0.7 Estimated GFR (MDRD) 97 Glucose 92 Calcium 9.7 Total Bilirubin 0.6 AST 17 ALT 16 Alkaline Phosphatase 68 Total Protein 9.1 H Albumin 4.6 Globulin 4.5 H Albumin/Globulin Ratio 1.0 Lipase 34 Urine Color YELLOW Urine Clarity CLEAR Urine pH 6.0 Ur Specific [place] 1.025 Urine Protein NEGATIVE Urine Glucose (UA) NEGATIVE Urine Ketones NEGATIVE Urine Occult Blood NEGATIVE Urine Nitrite NEGATIVE Urine Bilirubin NEGATIVE Urine Urobilinogen 0.2 (NORMAL) Ur Leukocyte Esterase NEGATIVE Ur Microscopic Review NOT INDICATED Urine Culture Comments NOT INDICATED Urine HCG, Qual NEGATIVE - Rads (name of study) abd CT Radiology: Prelim report reviewed (no acute process), See rad report PD MEDICAL DECISION MAKING - ED course Complexity details: re-evaluated patient (improved witn meds), considered differential (given episodic sumptoms and now worse episode, sounds likely UC or colitis and now with presumed infectious component. Will treat as such. To get labs and CT. ), d/w patient Departure - Departure Disposition: 01 Home, Self Care Condition: Stable Record reviewed to determine appropriate education?: Yes Instructions: ED Colitis Ulcerative Follow-Up: Trish Proctor MD [Provider Admit Priv/Credential] - Prescriptions: Sulfamethox/Trimeth 800/160 [Bactrim Ds 800/160] 1 each PO BID #10 tablet Docusate Sodium 100Mg Capsule [Colace 100Mg Capsule] 100 mg PO DAILY #20 capsule dexAMETHasone [Decadron] 4 mg PO DAILY #5 tablet metroNIDAZOLE [Flagyl] 250 mg PO BID #10 tablet HYDROcod/ACETAM 5/325 [[place] 5/325] 1 ea PO Q6H PRN #18 tablet PRN Reason: Pain Comments: Stay well-hydrated. Food as tolerated. Use ondansetron if needed for nausea and Tylenol if needed for pain. Add hydrocodone if needed for worse pain. Docusate stool softener once or twice daily for the next several days to a week or so. Your CT scan did not show a localized area of infection. Your appendix is normal in gallbladder. No localized area of abscess or perforation. However your symptoms do sound likely to be some colitis which is an inflammation and/or infection of the colon. We will treat that with the anti- inflammatory Decadron daily for 5 more days and antibiotics Bactrim and Flagyl as directed for 5 days as well. I would anticipate improvement in the current symptoms over the next couple of days. Follow-up with your primary care in the next few days, call for an appointment. Subsequently, given your episodes you have been having, it could make sense to have a colonoscopy to evaluate for ulcerative colitis or inflammatory bowel disease as a cause for the recurrence of episodes. Follow-up will for referral through your primary care or follow-up directly with the surgery clinic here at [facility]. Forms: Activity restrictions Discharge Date/Time: 10/06/20 02:27
[2020-10-05] MEDS ORDERED: KETOROLAC 15 MG/ML VIAL IVP STA (23:05)
[2020-10-05] MEDS ORDERED: SODIUM CHLORIDE 0.9% 1,000 ML IV STA (23:05)
[2020-10-05] MEDS ORDERED: HYDROmorphone 1 MG/ML CARPUJECT IVP STA (23:05)
[2020-10-05] MEDS ORDERED: ONDANSETRON 4 MG/2 ML VIAL IVP STA (23:05)
[2020-10-05] MEDS ORDERED: IOVERSOL 320 100 ML VIAL IVP ONE (23:53)
[2020-10-06] MEDS ORDERED: IOVERSOL 320 100 ML VIAL IVP ONE (00:20)
[2020-10-06] MEDS ORDERED: metroNIDAZOLE 250 MG TABLET PO STA (02:01)
[2020-10-06] MEDS ORDERED: HYDROmorphone 1 MG/ML CARPUJECT IVP STA (02:01)
[2020-10-06] MEDS ORDERED: SULFAMETH/TRIMETH DS 800/160 MG TABLET PO STA (02:01)
[2020-10-06] MEDS ORDERED: DOCUSATE SODIUM 100 MG CAPSULE PO STA (02:01)
[2020-10-06 02:28] VITALS: BP 112/84
--- NOTE | 2020-10-06 09:30 | CT Report ---
PROCEDURE: Abdomen/Pelvis W INDICATIONS: lower abd pain and bloody stool CONTRAST: IV CONTRAST: Optiray 320 ml: 100 PO CONTRAST: *NO PO CONTRAST TECHNIQUE: After the administration of nonionic contrast, 5 mm thick sections acquired from the diaphragms to th e symphysis. 5 mm thick coronal and sagittal reformats were acquired. For radiation dose reduction, the following was used: automated exposure control, adjustment of mA and/or kV according to patient size. COMPARISON: None. FINDINGS: Image quality: Excellent. ABDOMEN: Lung bases: Lung bases are clear. Heart size is normal. Solid organs: Liver and spleen are normal in size and enhancement. Gallbladder appears normal Bili corinne system is non dilated. Pancreas enhances normally. No adrenal nodules. Kidneys demonstrate nor mal size and enhancement, without hydronephrosis. Peritoneum and bowel: Bowel loops demonstrate normal wall thickness and caliber. No free fluid or a ir. Nodes and vessels: No retroperitoneal or mesenteric adenopathy by size criteria. Aorta and inferior vena cava are normal in size. Miscellaneous: No ventral hernias. PELVIS: Genitourinary: Bladder wall thickness is normal. Anteverted uterus, centrally positioned IUD Miscellaneous: No inguinal hernias or adenopathy. Bones: No suspicious bony lesions. No vertebral body compression fractures. IMPRESSION: Source of current symptoms is not seen. Anteverted uterus, centrally positioned IUD. Reviewed by: Tarun Mendoza MD on 10/06/2020 9:28 AM [facility] Approved by: Tarun Mendoza MD on 10/06/2020 9:28 AM PST Station ID: [id number]
== END 2020-10-06 02:27 | disposition home or self-care (01) ==
LOC: ED 21:46
DX: K51.90 Ulcerative colitis, unspecified, without complications (principal); F17.200 Nicotine dependence, unspecified, uncomplicated
CPT/HCPCS: 36415; 74177; 80053; 81003; 81025; 83690; 85025; 96361; 96374; 96375; 96376; 99284; A9270; J1170; Q9967; 81001; 87086

== ENCOUNTER 2020-10-11 12:24 | Outpatient (CLI) | payer MEDICAID | END 2020-10-11 12:25 | disposition critical access hospital (66) | LOC: EMS 12:24 | PROVIDERS: ATTEND Surgery | DX: R11.10 Vomiting, unspecified (principal); R19.7 Diarrhea, unspecified | CPT/HCPCS: A0425; A0429 ==

== ENCOUNTER 2020-10-11 12:45 | Emergency (ER) | payer MEDICAID ==
[2020-10-11] MEDS ORDERED: SODIUM CHLORIDE 0.9% 1,000 ML IV STA (13:17)
[2020-10-11] MEDS ORDERED: ONDANSETRON 4 MG/2 ML VIAL IVP STA (13:17)
[2020-10-11] MEDS ORDERED: KETOROLAC 15 MG/ML VIAL IVP STA (13:17)
--- NOTE | 2020-10-11 13:20 | ED Physician Documentation ---
History of Present Illness - Stated complaint Stated Complaint: NOT FEELING WELL - Chief complaint Chief Complaint: General - History obtained from History obtained from: Patient - Additonal information Additional information: 30-year-old woman with family history of ulcerative colitis in her mother, recently diagnosed with colitis herself on October 05 ED visit, presents with persistent abdominal pain since that time, decreased p.o. intake, and acute episode of lightheadedness at work today while exerting herself associated with nonbloody nonbilious nausea vomiting x3. Patient states that she has been having increased bloody stools, daily over the past week. Denies fevers, diarrhea, Urinary symptoms. Endorses back pain, body aches. She has finished her steroid course that was prescribed and is on antibiotics. Review of Systems Ten Systems: 10 systems reviewed and negative Constitutional: reports: Myalgias. 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: section - Present Medications Home Medications: Ambulatory Orders Medication Instructions Recorded Confirmed Cyclobenzaprine [Flexeril] 10 mg ORAL TID PRN 02/24/20 10/11/20 Docusate Sodium 100Mg Capsule 100 mg PO DAILY #20 capsule 10/06/20 10/11/20 [Colace 100Mg Capsule] HYDROcod/ACETAM 5/325 [[place] 5/325] 1 ea PO Q6H PRN #18 tablet 10/06/20 10/11/20 Sulfamethox/Trimeth 800/160 1 each PO BID #10 tablet 10/06/20 10/11/20 [Bactrim Ds 800/160] dexAMETHasone [Decadron] 4 mg PO DAILY #5 tablet 10/06/20 10/11/20 metroNIDAZOLE [Flagyl] 250 mg PO BID #10 tablet 10/06/20 10/11/20 Mesalamine [Delzicol] 800 mg PO TID 30 Days #90 capsule 10/11/20 Ondansetron Odt [Zofran Odt] 4 mg TL Q6H PRN #10 tablet 10/11/20 - Allergies Allergies/Adverse Reactions: Allergies Allergy/AdvReac Type Severity Reaction Status Date / Time amoxicillin Allergy Unknown Verified 10/11/20 12:51 Penicillins Allergy Hives Verified 10/11/20 12:51 - Social History Does the pt smoke?: Yes Smoking Status: Current every day smoker Does the pt drink ETOH?: No Does the pt have substance abuse?: No - Immunizations Immunizations are current?: Yes - POLST Patient has POLST: No PD ED PE NORMAL - Vitals Vital signs reviewed: Yes - General General: Alert and oriented X 3 - HEENT HEENT: Atraumatic, PERRL, EOMI - Neck Neck: Supple, no meningeal sign - Cardiac Cardiac: RRR - Respiratory Respiratory: No respiratory distress, Clear bilaterally - Abdomen Abdomen: Non tender, Non distended, Other (discomfort to palpation in BL LQ) - Female Female : Deferred - Rectal Rectal: Other (no hemorrhoids. nonbloody DAGO.) - Back Back: No CVA TTP - Derm Derm: Normal color - Extremities Extremities: No deformity - Neuro Neuro: Alert and oriented X 3 - Psych Psych: Normal mood, Normal affect Results - Vitals Vitals: Vital Signs - 24 hr 10/11/20 10/11/20 12:51 13:01 Temperature 36.9 C Heart Rate 72 63 Respiratory 18 18 Rate Blood Pressure 120/86 H 104/58 L O2 Saturation 95 94 Oxygen O2 Source Room air - Labs Labs: Laboratory Tests 10/11/20 10/11/20 10/11/20 13:27 13:27 13:27 WBC 19.2 H RBC 4.45 Hgb 13.7 Hct 39.6 MCV 89.0 MCH 30.8 MCHC 34.6 RDW 12.3 Plt Count 412 MPV 9.5 Neut # (Auto) 16.2 H Lymph # (Auto) 1.7 [place] # (Auto) 1.1 H Eos # (Auto) 0.0 Baso # (Auto) 0.1 Absolute Nucleated RBC 0.00 Nucleated RBC % 0.0 ESR 17 Sodium 134 L Potassium 4.1 Chloride 99 L Carbon Dioxide 24 Anion Gap 11.0 BUN 12 Creatinine 0.7 Estimated GFR (MDRD) 97 Glucose 111 H Calcium 8.8 Total Bilirubin 0.4 AST 18 ALT 22 Alkaline Phosphatase 66 C-Reactive Protein < 1.0 Total Protein 7.6 Albumin 3.9 Globulin 3.7 Albumin/Globulin Ratio 1.1 Lipase 25 PD MEDICAL DECISION MAKING - ED course ED course: 30-year-old woman with apparent first-time ulcerative colitis flare. Currently on antibiotics, status post steroid course. Will obtain lab work, treat symptomatically and reassess. 2:30pm - patient tolerating po water and crackers, stating her pain/nausea significantly improved with symptomatic care. Labwork without concerning features. repeat abdominal exam nontender. patient will follow up outpatient GI. return precautions given. Departure - Departure Disposition: 01 Home, Self Care Clinical Impression: Abdominal pain, Nausea and vomiting, Dizziness Condition: Good Instructions: Diet Clear Liquid Dc Prescriptions: Mesalamine [Delzicol] 800 mg PO TID 30 Days #90 capsule Ondansetron Odt [Zofran Odt] 4 mg TL Q6H PRN #10 tablet PRN Reason: Nausea / Vomiting Comments: You were seen in the emergency department for nausea and vomiting and abdominal pain, which likely is related to new onset ulcerative colitis. It would be important for you to see a embroidery finisher in order to determine the extent of your disease. Take your medication as prescribed and return to the ED if you have any new or worsening symptoms. Forms: Activity restrictions
[2020-10-11 13:55] LABS: ALBUMIN 3.9 g/dL (3.2-5.5); ALBUMIN/GLOBULIN RATIO 1.1 (1.0-2.2); ALKALINE PHOSPHATASE 66 IU/L (42-121); ALT ALANINE AMINOTRANSFERASE 22 IU/L (10-60); AST ASPARTATE AMINOTRANSFERASE 18 IU/L (10-42); BILIRUBIN,TOTAL 0.4 mg/dL (0.2-1.0); BUN - BLOOD UREA NITROGEN 12 mg/dL (6-20); CALCIUM 8.8 mg/dL (8.5-10.3); CARBON DIOXIDE - CO2 24 mmol/L (21-32); CHLORIDE 99 mmol/L (101-111); CREATININE 0.7 mg/dL (0.4-1.0); GLUCOSE 111 mg/dL (70-100); LIPASE 25 U/L (22-51); SODIUM 134 mmol/L (135-145); TOTAL PROTEIN 7.6 g/dL (6.7-8.2)
[2020-10-11 14:03] LABS: CRP - C-REACTIVE PROTEIN < 1.0 mg/dL (0-1.0)
[2020-10-11 14:17] LABS: BASOPHILS # (AUTO) 0.1 10^3/uL (0.0-0.1); BASOPHILS % (AUTO) 0.3 %; EOSINOPHILS % (AUTO) 0.1 %; HGB - HEMOGLOBIN 13.7 g/dL (12.0-16.0); LYMPHOCYTES # (AUTO) 1.7 10^3/uL (1.5-3.5); LYMPHOCYTES % (AUTO) 8.7 %; MEAN CORPUSCULAR HEMOGLOBIN 30.8 pg (27.0-31.0); MEAN CORPUSCULAR HGB CONC 34.6 g/dL (32.0-36.0); MEAN PLATELET VOLUME 9.5 fL (7.9-10.8); MONOCYTES # (AUTO) 1.1 10^3/uL (0.0-1.0); MONOCYTES % (AUTO) 5.7 %; NEUTROPHILS # (AUTO) 16.2 10^3/uL (1.5-6.6); NEUTROPHILS % (AUTO) 84.2 %; PLT - PLATELET COUNT 412 10^3/uL (130-450); RED BLOOD COUNT 4.45 10^6/uL (4.20-5.40); RED CELL DISTRIBUTION WIDTH 12.3 % (12.0-15.0); WHITE BLOOD COUNT 19.2 x10^3/uL (4.8-10.8)
[2020-10-11 14:33] VITALS: BP 104/64
== END 2020-10-11 14:44 | disposition home or self-care (01) ==
LOC: EDUNIT# → ED 12:45
DX: K51.90 Ulcerative colitis, unspecified, without complications (principal); R42 Dizziness and giddiness; F17.200 Nicotine dependence, unspecified, uncomplicated
CPT/HCPCS: 36415; 80053; 83690; 85025; 85651; 86140; 96361; 96374; 99284

== ENCOUNTER 2020-10-21 10:46 | Emergency (ER) | payer MEDICAID ==
[2020-10-21 11:07] LABS: BILIRUBIN,URINE NEGATIVE (NEGATIVE); GLUCOSE, URINE (UA) NEGATIVE (NEGATIVE); KETONES,URINE (UA) NEGATIVE (NEGATIVE); LEUKOCYTE ESTERASE, URINE NEGATIVE (NEGATIVE); NITRITE,URINE NEGATIVE (NEGATIVE); OCCULT BLOOD,URINE TRACE-INTA (NEGATIVE); PH,URINE 5.5 PH (5.0-7.5); PROTEIN,URINE NEGATIVE (NEGATIVE); UROBILINOGEN,URINE 0.2 (NORMAL) E.U./dL (NORMAL)
[2020-10-21 11:11] LABS: CLARITY,URINE CLEAR (CLEAR); HCG UR QUAL NEGATIVE
[2020-10-21 11:12] LABS: BASOPHILS % (AUTO) 0.2 %; EOSINOPHILS # (AUTO) 0.1 10^3/uL (0.0-0.7); EOSINOPHILS % (AUTO) 0.3 %; HGB - HEMOGLOBIN 14.3 g/dL (12.0-16.0); LYMPHOCYTES # (AUTO) 1.6 10^3/uL (1.5-3.5); LYMPHOCYTES % (AUTO) 9.9 %; MEAN CORPUSCULAR HEMOGLOBIN 30.6 pg (27.0-31.0); MEAN CORPUSCULAR HGB CONC 33.2 g/dL (32.0-36.0); MEAN CORPUSCULAR VOLUME 92.3 fL (81.0-99.0); MEAN PLATELET VOLUME 9.4 fL (7.9-10.8); MONOCYTES # (AUTO) 0.9 10^3/uL (0.0-1.0); MONOCYTES % (AUTO) 5.4 %; NEUTROPHILS # (AUTO) 13.8 10^3/uL (1.5-6.6); NEUTROPHILS % (AUTO) 83.8 %; PLT - PLATELET COUNT 339 10^3/uL (130-450); RED BLOOD COUNT 4.67 10^6/uL (4.20-5.40); RED CELL DISTRIBUTION WIDTH 12.6 % (12.0-15.0); WHITE BLOOD COUNT 16.4 x10^3/uL (4.8-10.8)
[2020-10-21 11:24] LABS: ALBUMIN 3.9 g/dL (3.2-5.5); ALBUMIN/GLOBULIN RATIO 1.1 (1.0-2.2); BILIRUBIN,TOTAL 0.5 mg/dL (0.2-1.0); CALCIUM 9.2 mg/dL (8.5-10.3); CREATININE 0.8 mg/dL (0.4-1.0); TOTAL PROTEIN 7.6 g/dL (6.7-8.2)
[2020-10-21] MEDS ORDERED: methylPREDNISolone SUCCINATE 125 MG/2 ML VIAL IVP STA (11:46)
[2020-10-21] MEDS ORDERED: SODIUM CHLORIDE 0.9% 1,000 ML IV STA (11:46)
[2020-10-21] MEDS ORDERED: ONDANSETRON 4 MG/2 ML VIAL IVP STA (12:12)
[2020-10-21] MEDS ORDERED: HYDROmorphone 1 MG/ML CARPUJECT IVP STA (12:12)
--- NOTE | 2020-10-21 12:12 | ED Physician Documentation ---
PD HPI NVD - Stated complaint Stated Complaint: ABD PX/VOMITING - Chief complaint Chief Complaint: Abd Pain - History obtained from History obtained from: Patient - History of Present Illness Timing - onset: How many years ago (5) Timing - duration: Days Timing - details: Abrupt onset, Still present Associated symptoms: Abdominal pain, Hematochezia Contributing factors: Other (family history of IBD). No: Sick contact, Bad food, Travel, Recent antibiotics, Alcohol use, Anticoagulated, Diabetes Improved by: BM, Meds Worsened by: Eating, Palpation Similar symptoms before: Diagnosis (ulcerative colitis) Recently seen: Emergency Dept - Additonal information Additional information: 30 y/o female with a long history of abdominal cramping has developed diarrhea with blood and mucous over the past month and she has had some improvement with the decadron and flagyl and not much improvement with the mesalamine. Review of Systems Constitutional: reports: Fatigue. denies: Fever Eyes: denies: Decreased vision Ears: denies: Ear pain Nose: denies: Rhinorrhea / runny nose, Congestion Throat: denies: Sore throat Cardiac: denies: Chest pain / pressure, Palpitations Respiratory: denies: Dyspnea, Cough GI: reports: Abdominal Pain, Nausea, Vomiting, Diarrhea, Bloody / black stool : denies: Dysuria, Frequency Skin: denies: Rash Musculoskeletal: denies: Neck pain, Back pain, Extremity pain Neurologic: reports: Generalized weakness. 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 - Present Medications Home Medications: Ambulatory Orders Medication Instructions Recorded Confirmed Docusate Sodium 100Mg Capsule 100 mg PO DAILY #20 capsule 10/06/20 10/21/20 [Colace 100Mg Capsule] Mesalamine [Delzicol] 800 mg PO TID 30 Days #90 capsule 10/11/20 10/21/20 Ondansetron Odt [Zofran Odt] 4 mg TL Q6H PRN #10 tablet 10/11/20 10/21/20 Ondansetron Odt [Zofran] 4 mg TL Q6H PRN #10 tablet 10/21/20 Oxycodone HCl/Acetaminophen 1 - 2 each PO Q6H PRN #8 tablet 10/21/20 [Percocet 5-325 mg Tablet] predniSONE [Deltasone] 40 mg PO DAILY 5 Days #10 tablet 10/21/20 - Allergies Allergies/Adverse Reactions: Allergies Allergy/AdvReac Type Severity Reaction Status Date / Time amoxicillin Allergy Unknown Verified 10/21/20 10:51 Penicillins Allergy Hives Verified 10/21/20 10:51 - Social History Does the pt smoke?: Yes Smoking Status: Current every day smoker Does the pt drink ETOH?: No Does the pt have substance abuse?: No - Immunizations Immunizations are current?: Yes - POLST Patient has POLST: No PD ED PE NORMAL - Vitals Vital signs reviewed: Yes (hypertensive) - General General: Alert and oriented X 3, Well developed/nourished - HEENT HEENT: Atraumatic, PERRL, EOMI - Neck Neck: Supple, no meningeal sign, No bony TTP - Cardiac Cardiac: RRR, No murmur - Respiratory Respiratory: No respiratory distress, Clear bilaterally - Abdomen Abdomen: Normal bowel sounds, Soft, Other (bloated lower abdomen with generalized tenderness. 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, No motor deficit, No sensory deficit, Normal speech Eye Opening: Spontaneous Motor: Obeys Commands Verbal: Oriented GCS Score: 15 - Psych Psych: Normal mood, Normal affect Results - Vitals Vitals: Vital Signs - 24 hr 10/21/20 10/21/20 10:52 13:52 Temperature 36.8 C 37 C Heart Rate 94 86 Respiratory 18 16 Rate Blood Pressure 132/90 H 109/74 O2 Saturation 100 100 Oxygen O2 Source Room air - Labs Labs: Laboratory Tests 10/21/20 10/21/20 10/21/20 10:35 10:35 10:59 WBC 16.4 H RBC 4.67 Hgb 14.3 Hct 43.1 MCV 92.3 MCH 30.6 MCHC 33.2 RDW 12.6 Plt Count 339 MPV 9.4 Neut # (Auto) 13.8 H Lymph # (Auto) 1.6 [place] # (Auto) 0.9 Eos # (Auto) 0.1 Baso # (Auto) 0.0 Absolute Nucleated RBC 0.00 Nucleated RBC % 0.0 Sodium 138 Potassium 3.5 Chloride 101 Carbon Dioxide 25 Anion Gap 12.0 BUN 10 Creatinine 0.8 Estimated GFR (MDRD) 83 L Glucose 140 H Calcium 9.2 Total Bilirubin 0.5 AST 27 ALT 37 Alkaline Phosphatase 53 Total Protein 7.6 Albumin 3.9 Globulin 3.7 Albumin/Globulin Ratio 1.1 Lipase 21 L Urine Color YELLOW Urine Clarity CLEAR Urine pH 5.5 Ur Specific [place] 1.025 Urine Protein NEGATIVE Urine Glucose (UA) NEGATIVE Urine Ketones NEGATIVE Urine Occult Blood TRACE-INTA Urine Nitrite NEGATIVE Urine Bilirubin NEGATIVE Urine Urobilinogen 0.2 (NORMAL) Ur Leukocyte Esterase NEGATIVE Ur Microscopic Review NOT INDICATED Urine Culture Comments NOT INDICATED Urine HCG, Qual NEGATIVE Procedures - IVC sono (time) 1130 Bedside IVC sono: IVC measures (cm) (1.09), Dehydration (est 1+ liter deficit) PD MEDICAL DECISION MAKING - ED course Complexity details: reviewed old records, reviewed results, re-evaluated patient, considered differential, d/w patient ED course: 30-year-old female with a 5-year long history of intermittent episodes of abdominal cramping has now developed episodic cramping with bloody diarrhea and she was treated here 2 and half weeks ago with a course of Decadron and Flagyl with improvement in her symptoms and she subsequently has come back to the emergency department again with flare of symptoms and was treated with mesalamine and does not seem to have had the similar improvement. Today she is having cramping pain bloody diarrhea, nausea, vomiting and she is found to be dehydrated on interrogation the inferior vena cava. She is administered intravenous saline Solu-Medrol and Dilaudid. She has an appointment to see the skein yarn dyer helper tomorrow and today we will provide supportive treatment and prescribe prednisone for treatment as well as a limited amount of pain medication. Departure - Departure Disposition: 01 Home, Self Care Clinical Impression: Ulcerative colitis, acute Qualifiers: Digestive disease complication type: with rectal bleeding Qualified Code(s): K51.911 - Ulcerative colitis, unspecified with rectal bleeding Condition: Stable Instructions: ED Colitis Ulcerative Follow-Up: CHARLOTTE SERNA MD [Physician No Access] - Prescriptions: predniSONE [Deltasone] 40 mg PO DAILY 5 Days #10 tablet Oxycodone HCl/Acetaminophen [Percocet 5-325 mg Tablet] 1 - 2 each PO Q6H PRN #8 tablet PRN Reason: pain Ondansetron Odt [Zofran] 4 mg TL Q6H PRN #10 tablet PRN Reason: Nausea / Vomiting Forms: Activity restrictions Discharge Date/Time: 10/21/20 13:54
[2020-10-21 13:53] VITALS: BP 109/74
== END 2020-10-21 13:54 | disposition home or self-care (01) ==
LOC: ED 10:46
DX: K51.911 Ulcerative colitis, unspecified with rectal bleeding (principal); E86.0 Dehydration; Z83.79 Family history of other diseases of the digestive system; F17.200 Nicotine dependence, unspecified, uncomplicated; Z88.0 Allergy status to penicillin
CPT/HCPCS: 36415; 80053; 81003; 81025; 83690; 85025; 96361; 96374; 96375; 99283; 99284; J1170; 81001; 87086

== ENCOUNTER 2020-10-31 17:48 | Emergency (ER) | payer MEDICAID ==
[2020-10-31 18:06] LABS: MUDS CUTOFF CONCENTRATIONS CUTOFF CONC BELOW:
[2020-10-31] MEDS ORDERED: DEXAMETHASONE 10 MG/ML VIAL IVP STA (18:06)
[2020-10-31] MEDS ORDERED: SODIUM CHLORIDE 0.9% 1,000 ML IV STA (18:06)
[2020-10-31] MEDS ORDERED: HYDROmorphone 1 MG/ML CARPUJECT IVP STA (18:06)
--- NOTE | 2020-10-31 18:07 | ED Physician Documentation ---
PD HPI ABD PAIN - Stated complaint Stated Complaint: ABD PX, BACK PX, JOINT & FACE PX - Chief complaint Chief Complaint: Abd Pain - History obtained from History obtained from: Patient - Additional information Additional information: 30-year-old woman with presumed ulcerative colitis based on symptoms. Has appointment with GI and being scheduled for colonoscopy but no tissue biopsy yet. She presents with worse than normal diffuse abdominal pain with bloody diarrhea and also bilateral flank pain starting today consistent with prior episodes of pyelonephritis. She also describes a right-sided headache. Some nausea. No fevers or chills. Chart review shows that she had a negative CT of her belly a few weeks ago. She denies using marijuana. She has had 2 C- sections in the past. 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: section - Present Medications Home Medications: Ambulatory Orders Medication Instructions Recorded Confirmed Docusate Sodium 100Mg Capsule 100 mg PO DAILY #20 capsule 10/06/20 10/21/20 [Colace 100Mg Capsule] Mesalamine [Delzicol] 800 mg PO TID 30 Days #90 capsule 10/11/20 10/21/20 Ondansetron Odt [Zofran Odt] 4 mg TL Q6H PRN #10 tablet 10/11/20 10/21/20 Ondansetron Odt [Zofran] 4 mg TL Q6H PRN #10 tablet 10/21/20 Oxycodone HCl/Acetaminophen 1 - 2 each PO Q6H PRN #8 tablet 10/21/20 [Percocet 5-325 mg Tablet] predniSONE [Deltasone] 40 mg PO DAILY 5 Days #10 tablet 10/21/20 Omeprazole Magnesium [Prilosec] 10/31/20 Oxycodone HCl/Acetaminophen 1 - 2 each PO Q6H PRN #14 tab 10/31/20 [Percocet 5-325 mg Tablet] predniSONE [Deltasone] 20 mg PO [id number] #21 tab 10/31/20 - Allergies Allergies/Adverse Reactions: Allergies Allergy/AdvReac Type Severity Reaction Status Date / Time amoxicillin Allergy Unknown Verified 10/31/20 17:58 Penicillins Allergy Hives Verified 10/31/20 17:58 - Social History Does the pt smoke?: Yes Smoking Status: Current every day smoker Does the pt drink ETOH?: No Does the pt have substance abuse?: No - Immunizations Immunizations are current?: Yes - POLST Patient has POLST: No PD ED PE NORMAL - Vitals Vital signs reviewed: Yes - General General: Alert and oriented X 3, No acute distress - HEENT HEENT: PERRL, EOMI - Neck Neck: Supple, no meningeal sign, No bony TTP - Cardiac Cardiac: RRR, No murmur - Respiratory Respiratory: No respiratory distress, Clear bilaterally - Abdomen Abdomen: Normal bowel sounds, Soft, Other (Mild diffuse tenderness without surgical signs) - Back Back: Other (Mild bilateral CVA tenderness) - Derm Derm: Normal color, Warm and dry - Extremities Extremities: No edema, No calf tenderness / cord - Neuro Neuro: Alert and oriented X 3, Normal speech Results - Vitals Vitals: Vital Signs - 24 hr 10/31/20 10/31/20 17:55 19:19 Temperature 36.9 C Heart Rate 81 70 Respiratory 20 19 Rate Blood Pressure 126/88 H 140/80 H O2 Saturation 100 100 Oxygen O2 Source Room air - Labs Labs: Laboratory Tests 10/31/20 10/31/20 10/31/20 17:59 18:16 18:16 WBC 12.9 H RBC 4.83 Hgb 14.8 Hct 44.4 MCV 91.9 MCH 30.6 MCHC 33.3 RDW 12.4 Plt Count 341 MPV 9.2 Neut # (Auto) 9.1 H Lymph # (Auto) 2.7 [place] # (Auto) 0.8 Eos # (Auto) 0.2 Baso # (Auto) 0.0 Absolute Nucleated RBC 0.00 Nucleated RBC % 0.0 Sodium 140 Potassium 3.8 Chloride 104 Carbon Dioxide 25 Anion Gap 11.0 BUN 14 Creatinine 0.8 Estimated GFR (MDRD) 83 L Glucose 96 Calcium 9.6 Total Bilirubin 0.4 AST 17 ALT 19 Alkaline Phosphatase 67 Total Protein 7.5 Albumin 3.7 Globulin 3.8 Albumin/Globulin Ratio 1.0 Lipase 47 Urine Color YELLOW Urine Clarity HAZY Urine pH 6.0 Ur Specific [place] 1.020 Urine Protein NEGATIVE Urine Glucose (UA) NEGATIVE Urine Ketones NEGATIVE Urine Occult Blood TRACE-INTA Urine Nitrite NEGATIVE Urine Bilirubin NEGATIVE Urine Urobilinogen 0.2 (NORMAL) Ur Leukocyte Esterase NEGATIVE Urine RBC 0-5 Urine WBC 0-3 Ur Squamous Epith Cells MANY Squamous H Urine Bacteria Few Ur Microscopic Review INDICATED Urine Culture Comments NOT INDICATED Urine HCG, Qual NEGATIVE Urine Opiates Screen NEGATIVE Ur Oxycodone Screen NEGATIVE Urine Methadone Screen NEGATIVE Ur Propoxyphene Screen NEGATIVE Ur Barbiturates Screen NEGATIVE Ur Tricyclics Screen NEGATIVE Ur Phencyclidine Scrn NEGATIVE Ur Amphetamine Screen NEGATIVE U Methamphetamines Scrn NEGATIVE U Benzodiazepines Scrn NEGATIVE Urine Cocaine Screen NEGATIVE U Cannabinoids Screen NEGATIVE Ethyl Alcohol < 5.0 PD MEDICAL DECISION MAKING - ED course ED course: 30-year-old woman presents with recurrent subacute exacerbation of abdominal pain. Symptomatology suggestive of ulcerative colitis although not confirmed at this juncture. Has appropriate GI follow-up. Feeling better after meds here. Labs are reassuring. 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 Return for new or worsening symptoms. The policy of this emergency department is to not give more than 3 prescriptions for narcotics or other controlled substances in any 1 year. You have already surpassed this benchmark and we cannot prescribe narcotics for you. I encourage you to follow up with your primary care physician or to establish care with a primary care physician for ongoing pain management. You are always welcome to seek emergency care here for this or new issues but there will likely be limitations in the prescription of narcotic pain medication. Discharge Date/Time: 10/31/20 19:24
[2020-10-31 18:08] LABS: BILIRUBIN,URINE NEGATIVE (NEGATIVE); GLUCOSE, URINE (UA) NEGATIVE (NEGATIVE); KETONES,URINE (UA) NEGATIVE (NEGATIVE); LEUKOCYTE ESTERASE, URINE NEGATIVE (NEGATIVE); NITRITE,URINE NEGATIVE (NEGATIVE); OCCULT BLOOD,URINE TRACE-INTA (NEGATIVE); PROTEIN,URINE NEGATIVE (NEGATIVE); UROBILINOGEN,URINE 0.2 (NORMAL) E.U./dL (NORMAL)
[2020-10-31 18:10] LABS: CLARITY,URINE HAZY (CLEAR)
[2020-10-31 18:11] LABS: HCG UR QUAL NEGATIVE
[2020-10-31 18:21] LABS: RBC,URINE 0-5 /HPF (0-5); WBC,URINE 0-3 /HPF (0-5)
[2020-10-31 18:22] LABS: BASOPHILS % (AUTO) 0.3 %; EOSINOPHILS # (AUTO) 0.2 10^3/uL (0.0-0.7); EOSINOPHILS % (AUTO) 1.8 %; HCT - HEMATOCRIT 44.4 % (37.0-47.0); HGB - HEMOGLOBIN 14.8 g/dL (12.0-16.0); LYMPHOCYTES # (AUTO) 2.7 10^3/uL (1.5-3.5); LYMPHOCYTES % (AUTO) 20.9 %; MEAN CORPUSCULAR HEMOGLOBIN 30.6 pg (27.0-31.0); MEAN CORPUSCULAR HGB CONC 33.3 g/dL (32.0-36.0); MEAN CORPUSCULAR VOLUME 91.9 fL (81.0-99.0); MEAN PLATELET VOLUME 9.2 fL (7.9-10.8); MONOCYTES # (AUTO) 0.8 10^3/uL (0.0-1.0); MONOCYTES % (AUTO) 6.2 %; NEUTROPHILS # (AUTO) 9.1 10^3/uL (1.5-6.6); NEUTROPHILS % (AUTO) 70.3 %; PLT - PLATELET COUNT 341 10^3/uL (130-450); RED BLOOD COUNT 4.83 10^6/uL (4.20-5.40); RED CELL DISTRIBUTION WIDTH 12.4 % (12.0-15.0); WHITE BLOOD COUNT 12.9 x10^3/uL (4.8-10.8)
[2020-10-31 18:22] LABS: AMPHETAMINE SCREEN,URINE NEGATIVE (NEGATIVE); BACTERIA,URINE Few /HPF (None Seen); BARBITURATE SCREEN,UR NEGATIVE (NEGATIVE); BENZODIAZEPINES SCREEN, URINE NEGATIVE (NEGATIVE); COCAINE SCREEN URINE NEGATIVE (NEGATIVE); METHADONE SCREEN, URINE NEGATIVE (NEGATIVE); METHAMPHETAMINES SCREEN, URINE NEGATIVE (NEGATIVE); OPIATE SCREEN, URINE NEGATIVE (NEGATIVE); OXYCODONE SCREEN, URINE NEGATIVE (NEGATIVE); PROPOXYPHENE SCREEN, URINE NEGATIVE (NEGATIVE); SQUAMOUS EPITHELIAL CELL,UR MANY Squamous (<= Few); THC CANNABINOID SCREEN, URINE NEGATIVE (NEGATIVE); TRICYCLIC ANTIDEPRESSANT,URINE NEGATIVE (NEGATIVE)
[2020-10-31 18:34] LABS: ALBUMIN 3.7 g/dL (3.2-5.5); ALKALINE PHOSPHATASE 67 IU/L (42-121); ALT ALANINE AMINOTRANSFERASE 19 IU/L (10-60); AST ASPARTATE AMINOTRANSFERASE 17 IU/L (10-42); BILIRUBIN,TOTAL 0.4 mg/dL (0.2-1.0); BUN - BLOOD UREA NITROGEN 14 mg/dL (6-20); CALCIUM 9.6 mg/dL (8.5-10.3); CARBON DIOXIDE - CO2 25 mmol/L (21-32); CHLORIDE 104 mmol/L (101-111); CREATININE 0.8 mg/dL (0.4-1.0); ETOH - ETHANOL < 5.0 mg/dL; GFR - MDRD 83 (>89); GLUCOSE 96 mg/dL (70-100); LIPASE 47 U/L (22-51); POTASSIUM 3.8 mmol/L (3.5-5.0); SODIUM 140 mmol/L (135-145); TOTAL PROTEIN 7.5 g/dL (6.7-8.2)
[2020-10-31] MEDS ORDERED: oxyCODONE/ACET 5/325 Prepack 4 PO STA (19:08)
[2020-10-31 19:19] VITALS: BP 140/80
== END 2020-10-31 19:24 | disposition home or self-care (01) ==
LOC: ED 17:48
DX: R10.84 Generalized abdominal pain (principal); F17.200 Nicotine dependence, unspecified, uncomplicated
CPT/HCPCS: 36415; 80053; 80306; 80320; 81001; 81025; 83690; 85025; 96374; 96375; 99283; 99285; J1170; 81003; 87086

== ENCOUNTER 2020-12-02 20:21 | Emergency (ER) | payer MEDICAID ==
[2020-12-02] MEDS ORDERED: HYDROmorphone 2 MG/ML VIAL IM STA (21:05)
[2020-12-02] MEDS ORDERED: METOCLOPRAMIDE 10 MG TABLET PO STA (21:07)
--- NOTE | 2020-12-02 21:08 | ED Physician Documentation ---
History of Present Illness - Stated complaint Stated Complaint: LT KNEE/BACK PX - Chief complaint Chief Complaint: Ext Problem - Additonal information Additional information: 30-year-old female presents the emergency department for evaluation of left knee and low back pain. She reports that she has a history of arthritis as well as degenerative disc disease and herniated disks in her low back. She thinks she may be developing arthritis in the left knee. Twice today when standing or walking the knee has buckled and he is she has fallen directly onto the kneecap. Since then she has had increasing pain in the knee without deformity or swelling. She also reports ports a history of IBS/Crohn's disease as well as recurrent migraines. She recently ran out of her Reglan and has been unable to follow-up with her primary care provider. She is requesting a refill of her Reglan for control of headaches and nausea. Review of Systems Constitutional: reports: Reviewed and negative Eyes: reports: Reviewed and negative Ears: reports: Reviewed and negative Nose: reports: Reviewed and negative Throat: reports: Reviewed and negative Cardiac: reports: Reviewed and negative Respiratory: reports: Reviewed and negative GI: reports: Reviewed and negative : reports: Reviewed and negative Skin: denies: Rash, Lesions Musculoskeletal: reports: Back pain, Joint pain (left knee) Neurologic: reports: Reviewed and negative PD PAST MEDICAL HISTORY - Past Medical History Past Medical History: Yes Cardiovascular: None Respiratory: Asthma Neuro: Migraines Endocrine/Autoimmune: None GI: Ulcers, Ulcerative colitis 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 : Other HEENT: None Psych: Depression, Anxiety Musculoskeletal: Osteoarthritis, Other Derm: None - Past Surgical History Past Surgical History: Yes /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 - Present Medications Home Medications: Ambulatory Orders Medication Instructions Recorded Confirmed Docusate Sodium 100Mg Capsule 100 mg PO DAILY #20 capsule 10/06/20 10/21/20 [Colace 100Mg Capsule] Omeprazole Magnesium [Prilosec] 10/31/20 Methocarbamol [Robaxin-750] 750 mg PO TID PRN #30 tablet 12/02/20 Metoclopramide [Reglan] 10 mg PO Q6H PRN #20 tablet 12/02/20 - Allergies Allergies/Adverse Reactions: Allergies Allergy/AdvReac Type Severity Reaction Status Date / Time amoxicillin Allergy Unknown Verified 12/02/20 20:31 Penicillins Allergy Hives Verified 12/02/20 20:31 - Social History Does the pt smoke?: Yes Smoking Status: Current every day smoker Does the pt drink ETOH?: No Does the pt have substance abuse?: No - Immunizations Immunizations are current?: Yes - POLST Patient has POLST: No PD ED PE EXPANDED - General General: Alert, No acute distress - Cardiac Cardiac: Regular Rate, Radial strong equal, Pedal strong equal, Cap refill < 2 sec - Respiratory Respiratory: Clear to ausultation concetta. No: Distress, Labored - Abdomen Abdomen: Normal Bowel sounds. No: Tender to palpation - Back Back: Soft tissue tenderness (bilateral soft tissue paraspinous tenderness. Full ROM and florward flexion. motor strength 5/5 BLE). No: Vertebral tenderness, Straight leg raise + R, Straight leg raise + L, CVA TTP right, CVA TTP left - Extremities Extremities: Left knee (no swelling. normal flexion/extension. no laxity. bears partial weight) - Neuro Neuro: Alert and Oriented X 3, CNII-XII intact Results - Vitals Vitals: Vital Signs - 24 hr 12/02/20 20:28 Temperature 36.5 C Heart Rate 124 H Respiratory 17 Rate Blood Pressure 134/61 H O2 Saturation 100 Oxygen O2 Source Room air - Rads (name of study) left knee Radiology: EMP read indepedently (No acute fracture or dislocation.) PD MEDICAL DECISION MAKING - ED course Complexity details: reviewed results, re-evaluated patient, considered differential, d/w patient ED course: This is a well-appearing 30-year-old female that presents to the emergency department for acute left knee pain as well as acute on chronic low back pain. She reports that twice today her knee has buckled when standing or walking and she is falling directly onto the knee. On exam there is no laxity or effusion. She is able to both extend and flex the knee. She bears only partial weight on the knee however. I suspect that she likely has a internal derangement or meniscal entrapment given the acuity with which should the knee mary ellen. Patient will be given an articulating knee brace and crutches. Will recommend ibuprofen for discomfort. She also reports acute on chronic low back pain with degenerative disc disease and herniated disc. There are no red flags on exam. I will write a presc ription for methocarbamol. She does also report recurrent headaches and a history of migraines that are worsening since running out of her Reglan which is used to both treat her headaches as well her IBS/Crohn's. Dose of Reglan was given here in the emergency department and a short prescription will be written for her. Emergent return precautions discussed Departure - Departure Disposition: 01 Home, Self Care Clinical Impression: Left knee pain Qualifiers: Chronicity: acute Qualified Code(s): M25.562 - Pain in left knee Low back pain Qualifiers: Chronicity: chronic Back pain laterality: bilateral Sciatica presence: without sciatica Qualified Code(s): M54.5 - Low back pain; G89.29 - Other chronic pain Condition: Stable Record reviewed to determine appropriate education?: Yes Follow-Up: CHARLOTTE SERNA MD [Primary Care Provider] - Prescriptions: Metoclopramide [Reglan] 10 mg PO Q6H PRN #20 tablet PRN Reason: Nausea / Vomiting Methocarbamol [Robaxin-750] 750 mg PO TID PRN #30 tablet PRN Reason: Spasms Comments: The x-ray of your knee does not show any broken bones or dislocations. However because the knee repeatedly mary ellen I suspect that you have a meniscus that is entrapped. I would recommend that you follow-up with your primary care provider as you may need an MRI for further evaluation. In the short-term please wear the articulating knee brace when out of bed and u se the crutches to help you get around over the next few days. As pain improves attempt to bear more more weight on the knee. I have written prescription for some Reglan to help you manage her headaches as well as your IBS/Crohn's. It is important that you discuss this ED visit with your primary provider. Return to the emergency department for fevers, inability to control your bowel or bladder function, severe worsening knee pain.
--- NOTE | 2020-12-02 21:28 | XRAY Report ---
PROCEDURE: Knee 3 View LT INDICATIONS: FELL/LANDED L KNEE/ PAIN W/ WALKING L KNEE TECHNIQUE: 3 views of the left knee(s) were acquired. COMPARISON: None. FINDINGS: Bones: No fractures or dislocations. No suspicious bony lesions. Soft tissues: No joint effusion. No suspicious soft tissue calcifications. IMPRESSION: No acute fracture. No osseous lesion. If symptoms and/or clinical suspicion for patholog y continue, further assessment with repeat plain films, or advanced imaging (e.g., CT, MRI, or bone s can) is recommended for further assessment. Reviewed by: Mejia Johnson MD on 12/02/2020 9:26 PM PST Approved by: Mejia Johnson MD on 12/02/2020 9:26 PM PST Station ID: [id number]
[2020-12-02 21:45] VITALS: BP 128/84
== END 2020-12-02 21:46 | disposition home or self-care (01) ==
LOC: ED 20:21
DX: M25.562 Pain in left knee (principal); M54.5 Low back pain; G89.29 Other chronic pain; R51.9 Headache, unspecified; Z76.0 Encounter for issue of repeat prescription; K50.90 Crohn's disease, unspecified, without complications; F17.200 Nicotine dependence, unspecified, uncomplicated
CPT/HCPCS: 73562; 96374; 99283; 99284; A9270; J1170

== ENCOUNTER 2021-01-18 19:23 | Outpatient (CLI) | payer MEDICAID | END 2021-01-18 19:24 | disposition short-term general hospital (02) | LOC: EMS 19:23 | DX: R43.9 Unspecified disturbances of smell and taste (principal); M79.10 Myalgia, unspecified site; R68.83 Chills (without fever) | CPT/HCPCS: A0425; A0429 ==

== ENCOUNTER 2021-02-08 17:30 | Outpatient (CLI) | payer MEDICAID | END 2021-02-08 17:31 | disposition critical access hospital (66) | LOC: EMS 17:30 | DX: J02.9 Acute pharyngitis, unspecified (principal); M79.10 Myalgia, unspecified site; R51.9 Headache, unspecified; H53.8 Other visual disturbances | CPT/HCPCS: A0425; A0429; A0999 ==

== ENCOUNTER 2021-02-08 17:50 | Emergency (ER) | payer MEDICAID ==
--- OUTSIDE RECORDS SUMMARY | 2021-02-08 18:04 | EXTERNAL MEDICAL SUMMARY RPT | Continuity of Care Document ---
:1990 Demographics Phone Unavailable Preferred Language Italian Marital Status Unknown Pentecostalism Affiliation Unknown Race Unknown Ethnic Group Unknown Author Organization [place] Address [address] [phone] Phone Care Team Providers Name Role Phone Cristina Persaud Unavailable Unavailable Jami Knapp Unavailable Unavailable Markel Clements Unavailable Unavailable Medications date description facility 20201222 Ketorolac Tromethamine 10 MG Oral [facility] 20201222 gabapentin 300 MG Oral Capsule [facility] 20201222 Prednisone [address] [facility] [id number] Ketorolac Tromethamine 10 MG Oral [facility] 20201207 Ketorolac Tromethamine 10 MG Oral [facility] 20201120 POLYETHYLENE GLYCOL 3350 142 MG/ML [facility] 20201120 meloxicam 7.[address] [facility] 20201120 POLYETHYLENE GLYCOL 3350 142 MG/ML [facility] 20201120 meloxicam 7.[address] [facility] 20201116 Promethazine Hydrochloride 25 MG Oral [facility] [id number] Metoclopramide 10 MG Oral Tablet [facility] [id number] Prednisone [address] [facility] 20201116 Acetaminophen 325 MG / Oxycodone Hydroc hloride 5 MG [facility] Oral Tablet 60352456 Promethazine Hydrochloride 25 MG Oral [facility] 54306958 Metoclopramide 10 MG Oral Tablet [facility] 44023896 Prednisone [address] [facility] [id number] Acetaminophen 325 MG / Oxycodone Hydroc hloride 5 MG [facility] Oral Tablet [id number] Promethazine Hydrochloride 25 MG Oral [facility] 34257836 Metoclopramide 10 MG Oral Tablet [facility] 47891116 Prednisone [address] [facility] [id number] Acetaminophen 325 MG / Oxycodone Hydroc hloride 5 MG [facility] Oral Tablet Procedures date description facility 20210118 [facility] [id number] [facility] [id number] [facility] [id number] [facility] [id number] [facility] [id number] [facility] [id number] [facility] [id number] [facility] 20201116 [facility] Vital Signs date measurement value source 20201116 weight_standard 97.52 lb 20201116 weight_metric 44.24 kg 20201116 temperature_standard 98 F 20201116 temperature_metric 36.67 C 20201116 respiration_rate 16 /min 20201116 height_standard 64 in 20201116 height_metric 162.56 cm 20201116 heart_rate 83 /min 20201116 BP_systolic 124 mm[Hg] 20201116 BP_diastolic 72 mm[Hg] 20201116 BMI 36.8 kg/m2 20201120 weight_standard 95.25 lb 20201120 weight_metric 43.21 kg 20201120 temperature_standard 98 F 20201120 temperature_metric 36.67 C 20201120 respiration_rate 20 /min 20201120 height_standard 64 in 20201120 height_metric 162.56 cm 20201120 heart_rate 89 /min 20201120 BP_systolic 117 mm[Hg] 20201120 BP_diastolic 76 mm[Hg] 20201120 BMI 36.0 kg/m2 20201207 weight_standard 977.95 lb 20201207 weight_metric 443.59 kg 20201207 temperature_standard 98.3 F 20201207 temperature_metric 36.83 C 20201207 respiration_rate 99 /min 20201207 height_standard 64 in 20201207 height_metric 162.56 cm 20201207 heart_rate 98 /min 20201207 BP_systolic 120 mm[Hg] 20201207 BP_diastolic 75 mm[Hg] 20201207 BMI 370.0 kg/m2 20201207 height_standard 64 in 20201207 height_metric 162.56 cm 20201207 BMI 370.0 kg/m2 20201222 weight_standard 97.52 lb 20201222 weight_metric 44.24 kg 20201222 temperature_standard 97.7 F 20201222 temperature_metric 36.5 C 20201222 respiration_rate 20 /min 20201222 heart_rate 92 /min 20201222 BP_systolic 99 mm[Hg] 20201222 BP_diastolic 55 mm[Hg] 20210118 weight_standard 97.52 lb 20210118 weight_metric 44.24 kg 20210118 temperature_standard 98.9 F 20210118 temperature_metric 37.17 C 20210118 respiration_rate 16 /min 20210118 height_standard 64 in 20210118 height_metric 162.56 cm 20210118 heart_rate 94 /min 20210118 BP_systolic 159 mm[Hg] 20210118 BP_diastolic 82 mm[Hg] 20210118 BMI 36.8 kg/m2
[2021-02-08 18:35] LABS: RAPID STREP SCREEN POSITIVE (Negative)
[2021-02-08] MEDS ORDERED: SODIUM CHLORIDE 0.9% 1,000 ML IV STA (18:36)
[2021-02-08] MEDS ORDERED: DEXAMETHASONE 10 MG/ML VIAL IVP STA (18:40)
[2021-02-08] MEDS ORDERED: CLINDAMYCIN 900 MG/50 ML 50 ML IV ONE (18:40)
[2021-02-08] MEDS ORDERED: KETOROLAC 30 MG/ML VIAL IVP STA (18:40)
--- NOTE | 2021-02-08 19:02 | ED Physician Documentation ---
History of Present Illness - Stated complaint Stated Complaint: FLU LIKE SYMPTOMS - Chief complaint Chief Complaint: Heent - History obtained from History obtained from: Patient - History of Present Illness Timing: Today Pain level max: 6 Pain level now: 6 - Additonal information Additional information: 30-year-old female with a sore throat for the past several days. History of recurrent strep pharyngitis. Has felt feverish at home. Has body aches. Emesis x1 today. Denies any possibility of . No cough. No congestion. No abdominal pain currently. 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 : Other HEENT: None Psych: Depression, Anxiety Musculoskeletal: Osteoarthritis, Other Derm: None - Past Surgical History Past Surgical History: Yes /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 - Present Medications Home Medications: Ambulatory Orders Medication Instructions Recorded Confirmed Docusate Sodium 100Mg Capsule 100 mg PO DAILY #20 capsule 10/06/20 02/08/21 [Colace 100Mg Capsule] Gabapentin [Neurontin] 300 mg PO BID 02/08/21 02/08/21 HYDROcod/ACETAM 5/325 [Erie 5/325] 1 - 2 ea PO Q6H PRN #14 tablet 02/08/21 Ibuprofen [Motrin] 800 mg PO Q8H PRN #30 tablet 02/08/21 Omeprazole Magnesium 20 mg PO DAILY 02/08/21 02/08/21 clindamycin HCL [Cleocin HCl] 300 mg PO Q6H #40 cap 02/08/21 - Allergies Allergies/Adverse Reactions: Allergies Allergy/AdvReac Type Severity Reaction Status Date / Time amoxicillin Allergy Unknown Verified 02/08/21 17:54 Penicillins Allergy Hives Verified 02/08/21 17:54 - Social History Does the pt smoke?: Yes Smoking Status: Current every day smoker Does the pt drink ETOH?: No Does the pt have substance abuse?: No - Immunizations Immunizations are current?: Yes - POLST Patient has POLST: No PD ED PE NORMAL - Vitals Vital signs reviewed: Yes - General General: Alert and oriented X 3, No acute distress - HEENT HEENT: Ears normal, Moist mucous membranes, Other (Posterior oropharynx is erythematous with tonsillar exudates. Normal phonation. No trismus. Uvula midline.) - Neck Neck: Supple, no meningeal sign, No bony TTP - Cardiac Cardiac: RRR, Strong equal pulses - Respiratory Respiratory: No respiratory distress, Clear bilaterally - Abdomen Abdomen: Soft, Non tender, Non distended - Back Back: No spinal TTP - Derm Derm: Warm and dry - Extremities Extremities: No edema - Neuro Neuro: Alert and oriented X 3 - Psych Psych: Normal mood, Normal affect Results - Vitals Vitals: Vital Signs - 24 hr 02/08/21 02/08/21 02/08/21 17:57 19:06 19:30 Temperature 37.7 C Heart Rate 112 H 99 107 H Respiratory 20 20 18 Rate Blood Pressure 128/79 114/99 H 125/67 O2 Saturation 100 99 100 Oxygen O2 Source Room air - Labs Labs: Laboratory Tests 02/08/21 18:17 Group A Strep Rapid POSITIVE H PD MEDICAL DECISION MAKING - ED course Complexity details: reviewed results, re-evaluated patient, considered differential, d/w patient ED course: Patient with strep pharyngitis. Given normal saline, Decadron, Toradol, clindamycin. She is penicillin allergic. Will place on clindamycin for home. Normal phonation. No trismus. Patient counseled regarding signs and symptoms for which I believe and urgent re-evaluation would be necessary. Patient with good understanding of and agreement to plan and is comfortable going home at this time This document was made in part using voice recognition software. While efforts are made to proofread this document, sound alike and grammatical errors may occur. No peritonsillar or retropharyngeal abscess Departure - Departure Disposition: 01 Home, Self Care Clinical Impression: Strep pharyngitis Condition: Good Instructions: ED Strep Pharyngitis Conf Follow-Up: CHARLOTTE SERNA MD [Primary Care Provider] - Within 1 week Prescriptions: clindamycin HCL [Cleocin HCl] 300 mg PO Q6H #40 cap Ibuprofen [Motrin] 800 mg PO Q8H PRN #30 tablet PRN Reason: PAIN &/OR FEVER HYDROcod/ACETAM 5/325 [Erie 5/325] 1 - 2 ea PO Q6H PRN #14 tablet PRN Reason: Pain Comments: Take all antibiotics until gone. Drink plenty of water. Return if you worsen Do not drink alcohol or drive while on narcotic pain medicine. Note that many narcotic pain relievers also contain tylenol/acetaminophen. Please ensure that your total dose of acetaminophen from all sources does not exceed 3 grams (3000mg) per day. You may constipated on this medication, take a stool softener such as "Colace" twice a day while you are on it. Also recommend a rqul-phs-ascghrr laxative such as senna or MiraLAX any day that you do not have a bowel movement. If you received narcotic pain medication in the emergency department, do not drive or operate machinery for the next 24 hours. Discharge Date/Time: 02/08/21 20:16
[2021-02-08] MEDS ORDERED: HYDROcod/ACETAM 5/325 MG TABLET PO STA (19:44)
[2021-02-08 19:59] VITALS: BP 125/67
== END 2021-02-08 20:16 | disposition home or self-care (01) ==
LOC: EDUNIT# → SUPCPDRO 17:50 → ED 17:50
DX: J02.0 Streptococcal pharyngitis (principal); Z88.0 Allergy status to penicillin; F17.200 Nicotine dependence, unspecified, uncomplicated
CPT/HCPCS: 87430; 96365; 96375; 99283; 99284; A9270; 36415

== ENCOUNTER 2021-03-04 10:46 | Emergency (ER) | payer MEDICAID ==
--- OUTSIDE RECORDS SUMMARY | 2021-03-04 10:50 | EXTERNAL MEDICAL SUMMARY RPT | Continuity of Care Document ---
:1990 Demographics Phone Unavailable Preferred Language Kyrgyz Marital Status Unknown Yazidi Affiliation Unknown Race Unknown Ethnic Group Unknown Author Organization [place] Address [address] [phone] Phone Care Team Providers Name Role Phone [place] Unavailable Unavailable Mank Unavailable Unavailable Allergies Encounters Medications date description facility 20201222 Ketorolac Tromethamine 10 MG Oral Table [facility] 20201222 gabapentin 300 MG Oral Capsule [facility] 20201222 Prednisone 10 MG Oral Tablet [facility] 20201207 Ketorolac Tromethamine 10 MG Oral Table [facility] 20201207 Ketorolac Tromethamine 10 MG Oral [facility] Problems Procedures date description facility 20210118 [facility] 20201222 [facility] 20201207 [facility] 20201207 [facility] Results Vital Signs date measurement value source 20201207 weight_standard 977.95 lb 20201207 weight_metric 443.59 kg 20201207 temperature_standard 98.3 F 20201207 temperature_metric 36.83 C [id number] respiration_rate 99 /min 20201207 height_standard 64 in 20201207 height_metric 162.56 cm 16004213 heart_rate 98 /min 20201207 BP_systolic 120 mm[Hg] 24664386 BP_diastolic 75 mm[Hg] 64296951 BMI 370.0 kg/m2 16992723 height_standard 64 in 20201207 height_metric 162.56 cm 20201207 BMI 370.0 kg/m2 [id number] weight_standard 97.52 lb [id number] weight_metric 44.24 kg 20201222 temperature_standard 97.7 F 20201222 temperature_metric 36.5 C 20201222 respiration_rate 20 /min 20201222 heart_rate 92 /min 20201222 BP_systolic 99 mm[Hg] 52220663 BP_diastolic 55 mm[Hg] 20210118 weight_standard 97.52 lb 20210118 weight_metric 44.24 kg 20210118 temperature_standard 98.9 F 20210118 temperature_metric 37.17 C 20210118 respiration_rate 16 /min 20210118 height_standard 64 in 20210118 height_metric 162.56 cm 20210118 heart_rate 94 /min 20210118 BP_systolic 159 mm[Hg] 20210118 BP_diastolic 82 mm[Hg] 20210118 BMI 36.8 kg/m2
--- NOTE | 2021-03-04 11:17 | ED Physician Documentation ---
PD HPI FEMALE - Stated complaint Stated Complaint: FEMALE - Chief complaint Chief Complaint: Abd Pain - History obtained from History obtained from: Patient - History of Present Illness Timing - onset: How many days ago (few) Timing - duration: Days (few days of LLQ and mid pelvic cramping and spotting. Has had IUD for 5 years without periods/spotting prior. No noted discharge.) Timing - details: Gradual onset, Still present, Waxing and waning Associated symptoms: Pelvic pain (mid to left), Vaginal bleeding (spotting for few days). No: Fever Contributing factors: IUD (she feels the IUD is causing cramping, might be out of place. Requests it out.), Sexually active. No: Similar symptoms before: Has not had sx before Recently seen: Not recently seen (tried to get INSULATION WORKER APPRENTICE appt but earliest is 6 weeks from now.) Review of Systems Constitutional: denies: Fever, Chills Nose: denies: Rhinorrhea / runny nose, Congestion Throat: denies: Sore throat Respiratory: denies: Cough GI: reports: Abdominal Pain. 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 : Other HEENT: None Psych: Depression, Anxiety Musculoskeletal: Osteoarthritis, Other Derm: None - Past Surgical History Past Surgical History: Yes /INSULATION WORKER APPRENTICE: section - Present Medications Home Medications: Ambulatory Orders Medication Instructions Recorded Confirmed Docusate Sodium 100Mg Capsule 100 mg PO DAILY #20 capsule 10/06/20 03/04/21 [Colace 100Mg Capsule] Gabapentin [Neurontin] 300 mg PO BID 02/08/21 03/04/21 Ibuprofen [Motrin] 800 mg PO Q8H PRN #30 tablet 02/08/21 03/04/21 Omeprazole Magnesium 20 mg PO DAILY 02/08/21 03/04/21 HYDROcod/ACETAM 5/325 [[place] 5/325] 1 ea PO Q6H PRN #12 tablet 03/04/21 Lidocaine 1 patch TOP DAILY 03/04/21 03/04/21 Meloxicam [Mobic] 15 mg PO DAILY 03/04/21 03/04/21 Metoclopramide [Reglan] 10 mg PO Q6HR PRN 03/04/21 03/04/21 Multivitamin 1 tab PO DAILY 03/04/21 03/04/21 Naproxen [EC-Naproxen] 500 mg PO BID #20 03/04/21 Ondansetron HCl [Zofran] 4 mg PO Q6HR PRN 03/04/21 03/04/21 - Allergies Allergies/Adverse Reactions: Allergies Allergy/AdvReac Type Severity Reaction Status Date / Time amoxicillin Allergy Unknown Verified 03/04/21 10:54 Penicillins Allergy Hives Verified 03/04/21 10:54 - Social History Does the pt smoke?: Yes Smoking Status: Current every day smoker Does the pt drink ETOH?: No Does the pt have substance abuse?: No - Immunizations Immunizations are current?: Yes - POLST Patient has POLST: No PD ED PE NORMAL - Vitals Vital signs reviewed: Yes - General General: Alert and oriented X 3, No acute distress, Well developed/nourished - Abdomen Abdomen: Normal bowel sounds, Soft, Non distended, No organomegaly, Other (tender LLQ with some local guarding. 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 Cultures obtained. Cervix is retroverted so initially hard to see strings for IUD. U/S performed and repeat pelvic showed the strings better and I was able to get with ringed forceps and remove the IUD without problems. She says the cramping was decreasing already.) Results - Vitals Vitals: Vital Signs - 24 hr 03/04/21 03/04/21 03/04/21 10:50 12:54 14:00 Temperature 36.0 C L 36.7 C 36.7 C Heart Rate 120 H 78 74 Respiratory 16 16 16 Rate Blood Pressure 117/79 118/73 116/83 H O2 Saturation 97 99 100 Oxygen O2 Source Room air - Labs Labs: Laboratory Tests 03/04/21 03/04/21 03/04/21 11:48 12:21 12:21 Urine Color YELLOW Urine Clarity CLEAR Urine pH 6.5 Ur Specific [place] 1.025 Urine Protein NEGATIVE Urine Glucose (UA) NEGATIVE Urine Ketones NEGATIVE Urine Occult Blood NEGATIVE Urine Nitrite NEGATIVE Urine Bilirubin NEGATIVE Urine Urobilinogen 0.2 (NORMAL) Ur Leukocyte Esterase NEGATIVE Ur Microscopic Review NOT INDICATED Urine Culture Comments NOT INDICATED Urine HCG, Qual NEGATIVE C. glabrata (PCR) NEGATIVE C. krusei (PCR) NEGATIVE Kimberly species DNA POSITIVE A Chlam trachomat DNA PCR NEGATIVE N.gonorrhoeae DNA (PCR) NEGATIVE T. vaginalis (PCR) NEGATIVE NEGATIVE Bact Vaginosis (PCR) NEGATIVE PD MEDICAL DECISION MAKING - ED course Complexity details: reviewed results (U/S without specific abnormality. IUD in place normally. ), considered differential (can look for causes left pelvic pain with UA, preg test, and U/S. She feels the IUD is causing symptoms and requests removal. It has been in 5 years and she has been spotting recently, so likely hormone component diminished. ), d/w patient Departure - Departure Disposition: 01 Home, Self Care Clinical Impression: Acute pelvic pain Condition: Stable Record reviewed to determine appropriate education?: Yes Instructions: ED Pelvic Pain [facility] Follow-Up: CHARLOTTE SERNA MD [Primary Care Provider] - Prescriptions: Naproxen [EC-Naproxen] 500 mg PO BID #20 HYDROcod/ACETAM 5/325 [[place] 5/325] 1 ea PO Q6H PRN #12 tablet PRN Reason: Pain Comments: Use the naproxen twice daily with food for inflammation and pain. To that add Tylenol or hydrocodone if needed for worse pain. I would anticipate improvement over the next 2 to 3 days. No obvious abnormality found on your ultrasound. This may be some irritation from the IUD and with that out now that should improve. My narcotic instructions I am prescribing a short course of narcotic pain medication for you. These are potentially dangerous and addictive medications that should be used carefully. These medications may constipate you. Take an ioll-eey-tinqpqy stool softener such as docusate twice daily with plenty of water while taking these medications. If you go 24 hours without a bowel movement, take [id number] MiraLAX, per package instructions. Do not drink or drive while taking these medications. If you received narcotic or sedating medications while in the emergency department do not drive for 24 hours. Store this medication in a safe, secure place and out of reach of children. It is a violation of federal law to give or sell this medication to another person or to use in a manner other than prescribed. The ED will not refill narcotic prescriptions, including prescriptions lost or stolen. You can dispose of unwanted medications at the [facility]'s office or at several pharmacies such as [facility]. Discharge Date/Time: 03/04/21 14:22
--- OUTSIDE RECORDS SUMMARY | 2021-03-04 11:23 | EXTERNAL MEDICAL SUMMARY RPT | Continuity of Care Document ---
:1990 Demographics Phone Unavailable Preferred Language Icelandic Marital Status Unknown Latter Day Affiliation Unknown Race Unknown Ethnic Group Unknown Author Organization [facility] Address [address] [phone] Phone Care Team Providers Name Role Phone Mank Unavailable Unavailable [place] Unavailable Unavailable Allergies Encounters Medications date description facility 20201222 [facility] Tromethamine 10 MG Oral Table [facility] 20201222 gabapentin 300 MG Oral Capsule [facility] 20201222 Prednisone 10 MG Oral Tablet [facility] 20201207 [place] Tromethamine 10 MG Oral Table [facility] 20201207 [place] Tromethamine 10 MG Oral [facility] Problems Procedures date description facility 20210118 [facility] 20201222 [facility] 20201207 [facility] 20201207 [facility] Results Vital Signs date measurement value source 20201207 weight_standard 977.95 lb 20201207 weight_metric 443.59 kg 20201207 temperature_standard 98.3 F 20201207 temperature_metric 36.83 C [id number] respiration_rate 99 /min 20201207 height_standard 64 in 20201207 height_metric 162.56 cm [id number] heart_rate 98 /min 20201207 BP_systolic 120 mm[Hg] 44927135 BP_diastolic 75 mm[Hg] 25627025 BMI 370.0 kg/m2 [id number] height_standard 64 in 20201207 height_metric 162.56 cm 20201207 BMI 370.0 kg/m2 [id number] weight_standard 97.52 lb [id number] weight_metric 44.24 kg 20201222 temperature_standard 97.7 F 20201222 temperature_metric 36.5 C 20201222 respiration_rate 20 /min 20201222 heart_rate 92 /min 20201222 BP_systolic 99 mm[Hg] 14590868 BP_diastolic 55 mm[Hg] 20210118 weight_standard 97.52 lb 20210118 weight_metric 44.24 kg 20210118 temperature_standard 98.9 F 20210118 temperature_metric 37.17 C 20210118 respiration_rate 16 /min 20210118 height_standard 64 in 20210118 height_metric 162.56 cm 20210118 heart_rate 94 /min 20210118 BP_systolic 159 mm[Hg] 20210118 BP_diastolic 82 mm[Hg] 20210118 BMI 36.8 kg/m2
[2021-03-04] MEDS ORDERED: HYDROmorphone 2 MG/ML VIAL IM STA (11:35)
[2021-03-04] MEDS ORDERED: KETOROLAC 30 MG/ML VIAL IM STA (11:35)
[2021-03-04 12:07] LABS: BILIRUBIN,URINE NEGATIVE (NEGATIVE); CLARITY,URINE CLEAR (CLEAR); GLUCOSE, URINE (UA) NEGATIVE (NEGATIVE); HCG UR QUAL NEGATIVE; KETONES,URINE (UA) NEGATIVE (NEGATIVE); LEUKOCYTE ESTERASE, URINE NEGATIVE (NEGATIVE); NITRITE,URINE NEGATIVE (NEGATIVE); OCCULT BLOOD,URINE NEGATIVE (NEGATIVE); PH,URINE 6.5 PH (5.0-7.5); PROTEIN,URINE NEGATIVE (NEGATIVE); UROBILINOGEN,URINE 0.2 (NORMAL) E.U./dL (NORMAL)
[2021-03-04 14:07] VITALS: BP 116/83
--- NOTE | 2021-03-04 14:08 | Ultrasound Report ---
PROCEDURE: Pelvic w/Transvag+Doppler Comp INDICATIONS: pelvic pain, R TECHNIQUE: Real-time scanning was performed of the pelvic organs, with image documentation. Additional endovagi nal scanning was necessary due to incomplete visualization of the adnexal and endometrial structures by transabdominal scanning. Endovaginal and transabdominal ultrasound was performed. COMPARISON: None. FINDINGS: No pathologic free abdominal or pelvic fluid. The uterus measures 9.3 x 4.7 x 5.9 cm. Uterine echotexture is smooth. The uterus is anteverted. No u terine fibroids. Nabothian cysts are seen in the cervix. IUD is in appropriate position. The right ovary measures 4.0 x 1.9 x 1.9 cm. The left ovary measures 3.3 x 2.4 x 2.9 cm. Both ovaries demonstrate normal vascular flow with no evidence of ovarian torsion. IMPRESSION: 1. No acute ultrasound abnormality of the pelvis. 2. IUD is in expected position. Reviewed by: Jorge Hassan on 03/04/2021 2:06 PM PDT Approved by: Jorge Hassan on 03/04/2021 2:06 PM PDT Station ID: [id number]
[2021-03-04 16:14] LABS: BACTERIAL VAGINOSIS DNA NEGATIVE (NEGATIVE); CANDIDA GLABRATA DNA NEGATIVE (NEGATIVE); CANDIDA GROUP DNA POSITIVE (NEGATIVE); CANDIDA KRUSEI DNA NEGATIVE (NEGATIVE); TRICHOMONAS VAGINALIS DNA NEGATIVE (NEGATIVE)
[2021-03-04 21:14] LABS: CHLAMYDIA TRACHOMATIS DNA NEGATIVE (NEGATIVE); NEISSERIA GONORRHOEAE DNA NEGATIVE (NEGATIVE); TRICHOMONAS VAGINALIS DNA NEGATIVE (NEGATIVE)
== END 2021-03-04 14:22 | disposition home or self-care (01) ==
LOC: ED 10:46
DX: R10.2 Pelvic and perineal pain (principal); R10.32 Left lower quadrant pain; N89.8 Other specified noninflammatory disorders of vagina; Z30.432 Encounter for removal of intrauterine contraceptive device; F17.200 Nicotine dependence, unspecified, uncomplicated
CPT/HCPCS: 76830; 76856; 81003; 81025; 87481; 87491; 87591; 87661; 87801; 93975; 96372; 99283; 99284; J1170; 81001; 87086

== ENCOUNTER 2021-03-15 16:29 | Emergency (ER) | payer MEDICAID ==
[2021-03-15 17:00] LABS: BILIRUBIN,URINE NEGATIVE (NEGATIVE); GLUCOSE, URINE (UA) NEGATIVE (NEGATIVE); KETONES,URINE (UA) TRACE mg/dL (NEGATIVE); LEUKOCYTE ESTERASE, URINE NEGATIVE (NEGATIVE); NITRITE,URINE NEGATIVE (NEGATIVE); OCCULT BLOOD,URINE NEGATIVE (NEGATIVE); PROTEIN,URINE TRACE mg/dL (NEGATIVE); UROBILINOGEN,URINE 0.2 (NORMAL) E.U./dL (NORMAL)
[2021-03-15 17:06] LABS: CLARITY,URINE CLEAR (CLEAR); HCG UR QUAL NEGATIVE
[2021-03-15 17:10] LABS: BASOPHILS # (AUTO) 0.1 10^3/uL (0.0-0.1); BASOPHILS % (AUTO) 0.4 %; EOSINOPHILS # (AUTO) 0.3 10^3/uL (0.0-0.7); EOSINOPHILS % (AUTO) 2.1 %; HCT - HEMATOCRIT 43.2 % (37.0-47.0); HGB - HEMOGLOBIN 14.5 g/dL (12.0-16.0); LYMPHOCYTES % (AUTO) 21.7 %; MEAN CORPUSCULAR HEMOGLOBIN 30.6 pg (27.0-31.0); MEAN CORPUSCULAR HGB CONC 33.6 g/dL (32.0-36.0); MEAN CORPUSCULAR VOLUME 91.1 fL (81.0-99.0); MEAN PLATELET VOLUME 9.6 fL (7.9-10.8); MONOCYTES # (AUTO) 1.1 10^3/uL (0.0-1.0); MONOCYTES % (AUTO) 7.9 %; NEUTROPHILS # (AUTO) 9.5 10^3/uL (1.5-6.6); NEUTROPHILS % (AUTO) 67.4 %; PLT - PLATELET COUNT 382 10^3/uL (130-450); RED BLOOD COUNT 4.74 10^6/uL (4.20-5.40)
[2021-03-15 17:26] LABS: ALBUMIN 4.2 g/dL (3.2-5.5); ALBUMIN/GLOBULIN RATIO 1.2 (1.0-2.2); BILIRUBIN,TOTAL 0.6 mg/dL (0.2-1.0); CALCIUM 9.1 mg/dL (8.5-10.3); POTASSIUM 3.7 mmol/L (3.5-5.0); TOTAL PROTEIN 7.7 g/dL (6.7-8.2)
[2021-03-15] MEDS ORDERED: SODIUM CHLORIDE 0.9% 1,000 ML IV STA (18:32)
[2021-03-15] MEDS ORDERED: PROMETHAZINE INJ 25 MG in SODIUM CHLORIDE 0.9% 50 ML IV STA (18:32)
[2021-03-15] MEDS ORDERED: KETOROLAC 30 MG/ML VIAL IVP STA (19:27)
[2021-03-15] MEDS ORDERED: FLUCONAZOLE 100 MG TABLET PO STA (19:42)
--- NOTE | 2021-03-15 19:45 | ED Physician Documentation ---
History of Present Illness - Stated complaint Stated Complaint: ABD PX/VOMITING - Chief complaint Chief Complaint: Abd Pain - History obtained from History obtained from: Patient - History of Present Illness Timing: Today Pain level max: 5 Pain level now: 5 - Additonal information Additional information: Patient is a 30-year-old female who presents to the emergency department stating she has increased pelvic cramping and nausea today. She has had the pelvic cramping since having her IUD removed 2 weeks ago. She is concerned about the Possibility of . No vomiting. No fevers. No chills. No vaginal bleeding or discharge. 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 : Other HEENT: None Psych: Depression, Anxiety Musculoskeletal: Osteoarthritis, Other Derm: None - Past Surgical History Past Surgical History: Yes /PRINT PRODUCTION COORDINATOR: section - Present Medications Home Medications: Ambulatory Orders Medication Instructions Recorded Confirmed Docusate Sodium 100Mg Capsule 100 mg PO DAILY #20 capsule 10/06/20 03/04/21 [Colace 100Mg Capsule] Gabapentin [Neurontin] 300 mg PO BID 02/08/21 03/04/21 Ibuprofen [Motrin] 800 mg PO Q8H PRN #30 tablet 02/08/21 03/04/21 Omeprazole Magnesium 20 mg PO DAILY 02/08/21 03/04/21 HYDROcod/ACETAM 5/325 [[place] 5/325] 1 ea PO Q6H PRN #12 tablet 03/04/21 Lidocaine 1 patch TOP DAILY 03/04/21 03/04/21 Meloxicam [Mobic] 15 mg PO DAILY 03/04/21 03/04/21 Metoclopramide [Reglan] 10 mg PO Q6HR PRN 03/04/21 03/04/21 Multivitamin 1 tab PO DAILY 03/04/21 03/04/21 Naproxen [EC-Naproxen] 500 mg PO BID #20 03/04/21 Ondansetron HCl [Zofran] 4 mg PO Q6HR PRN 03/04/21 03/04/21 Meloxicam [Mobic] 7.5 mg PO BID PRN #20 tablet 03/15/21 Promethazine [Phenergan] 25 mg PO Q6H PRN #10 tab 03/15/21 - Allergies Allergies/Adverse Reactions: Allergies Allergy/AdvReac Type Severity Reaction Status Date / Time amoxicillin Allergy Unknown Verified 03/15/21 16:40 Penicillins Allergy Hives Verified 03/15/21 16:40 - Social History Does the pt smoke?: Yes Smoking Status: Current every day smoker Does the pt drink ETOH?: No Does the pt have substance abuse?: No - Immunizations Immunizations are current?: Yes - POLST Patient has POLST: No PD ED PE NORMAL - Vitals Vital signs reviewed: Yes - General General: Alert and oriented X 3, No acute distress, Well developed/nourished - HEENT HEENT: Moist mucous membranes - Neck Neck: Supple, no meningeal sign - Cardiac Cardiac: RRR, Strong equal pulses - Respiratory Respiratory: No respiratory distress, Clear bilaterally - Abdomen Abdomen: Normal bowel sounds, Soft, Non tender, Non distended - Female Female : Pt declined - Derm Derm: Warm and dry - Extremities Extremities: No edema - Neuro Neuro: Alert and oriented X 3 - Psych Psych: Normal mood, Normal affect Results - Vitals Vitals: Vital Signs - 24 hr 03/15/21 03/15/21 03/15/21 16:40 20:00 20:01 Temperature 36.5 C 36.5 C 36.5 C Heart Rate 90 84 84 Respiratory 16 16 16 Rate Blood Pressure 115/62 114/77 114/77 O2 Saturation 96 100 100 Oxygen O2 Source Room air - Labs Labs: Laboratory Tests 03/15/21 03/15/21 03/15/21 16:50 17:08 17:08 WBC 14.0 H RBC 4.74 Hgb 14.5 Hct 43.2 MCV 91.1 MCH 30.6 MCHC 33.6 RDW 12.0 Plt Count 382 MPV 9.6 Neut # (Auto) 9.5 H Lymph # (Auto) 3.0 [place] # (Auto) 1.1 H Eos # (Auto) 0.3 Baso # (Auto) 0.1 Absolute Nucleated RBC 0.00 Nucleated RBC % 0.0 Sodium 139 Potassium 3.7 Chloride 102 Carbon Dioxide 26 Anion Gap 11.0 BUN 10 Creatinine 1.0 Estimated GFR (MDRD) 64 L Glucose 94 Calcium 9.1 Total Bilirubin 0.6 AST 16 ALT 16 Alkaline Phosphatase 66 Total Protein 7.7 Albumin 4.2 Globulin 3.5 Albumin/Globulin Ratio 1.2 Lipase 28 Urine Color YELLOW Urine Clarity CLEAR Urine pH 6.0 Ur Specific [place] >=1.030 H Urine Protein TRACE Urine Glucose (UA) NEGATIVE Urine Ketones TRACE Urine Occult Blood NEGATIVE Urine Nitrite NEGATIVE Urine Bilirubin NEGATIVE Urine Urobilinogen 0.2 (NORMAL) Ur Leukocyte Esterase NEGATIVE Ur Microscopic Review NOT INDICATED Urine Culture Comments NOT INDICATED Urine HCG, Qual NEGATIVE PD MEDICAL DECISION MAKING - ED course Complexity details: reviewed old records, reviewed results, re-evaluated patient (Abdomen is soft, nontender nondistended.), considered differential, d/w patient ED course: I reviewed the patient's prior records and she did have a candidal vaginal i nfection at her last visit that did not get treated. We treated her with Diflucan here for this. She was also given nausea medications and pain medications. Feels much better. Tolerating p.o. without difficulty. Patient is very well-appearing, nontoxic. If she fails to improve with this treatment, she will follow up with her shared services and outsourcing manager. Patient counseled regarding signs and symptoms for which I believe and urgent re-evaluation would be necessary. Patient with good understanding of and agreement to plan and is comfortable going home at this time This document was made in part using voice recognition software. While efforts are made to proofread this document, sound alike and grammatical errors may occur. Patient also has a chronic leukocytosis Departure - Departure Disposition: 01 Home, Self Care Clinical Impression: Pelvic cramping, Nausea, Candidal vaginitis Condition: Good Instructions: ED Vaginal Infec Fungal Kimberly Follow-Up: CHARLOTTE SERNA MD [Primary Care Provider] - Within 1 week Prescriptions: Meloxicam [Mobic] 7.5 mg PO BID PRN #20 tablet PRN Reason: Pain Promethazine [Phenergan] 25 mg PO Q6H PRN #10 tab PRN Reason: Nausea / Vomiting Comments: Follow-up with your doctor as needed for further care. Return if you worsen. Treating the yeast infection should help your pain that you are experiencing. Discharge Date/Time: 03/15/21 20:01
[2021-03-15 20:01] VITALS: BP 114/77
== END 2021-03-15 20:01 | disposition home or self-care (01) ==
LOC: ED 16:29
DX: R10.2 Pelvic and perineal pain (principal); R11.0 Nausea; B37.3 Candidiasis of vulva and vagina; F17.200 Nicotine dependence, unspecified, uncomplicated; Z88.0 Allergy status to penicillin
CPT/HCPCS: 36415; 80053; 81003; 81025; 83690; 85025; 96365; 96375; 99284; A9270; J7040; 81001; 87086

== ENCOUNTER 2021-03-27 19:56 | Emergency (ER) | payer MEDICAID ==
--- NOTE | 2021-03-27 21:59 | ED Physician Documentation ---
PD HPI HEENT - Stated complaint Stated Complaint: TOOTH PX/FEMALE - Chief complaint Chief Complaint: Heent - History obtained from History obtained from: Patient - History of Present Illness Timing - onset: How many days ago (2) Timing - duration: Days (2) Timing - details: Gradual onset, Still present Location: Tooth (left lower) Associated symptoms: No: Fever, Congestion, Headache Similar symptoms before: Diagnosis (dental caries with infections. Tyring to get appt with [facility].) Review of Systems Constitutional: denies: Fever, Chills Nose: denies: Rhinorrhea / runny nose, Congestion Throat: reports: Dental pain / toothache. 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 : Other HEENT: None Psych: Depression, Anxiety Musculoskeletal: Osteoarthritis, Other Derm: None - Past Surgical History Past Surgical History: Yes /CLOTH MENDER: section - Present Medications Home Medications: Ambulatory Orders Medication Instructions Recorded Confirmed Docusate Sodium 100Mg Capsule 100 mg PO DAILY #20 capsule 10/06/20 03/27/21 [Colace 100Mg Capsule] Gabapentin [Neurontin] 300 mg PO BID 02/08/21 03/27/21 Omeprazole Magnesium 20 mg PO DAILY 02/08/21 03/27/21 Metoclopramide [Reglan] 10 mg PO Q6HR PRN 03/04/21 03/27/21 Chlorhexidine Gluconate [Peridex] 15 ml MM TID #118 ml 03/27/21 Clindamycin [Cleocin] 300 mg PO TID 7 Days #20 cap 03/27/21 Naproxen Sodium [Naprelan] 375 mg PO BID PRN #20 tab 03/27/21 oxyCODONE [Roxicodone] 5 mg PO Q4-6H PRN #12 tablet 03/27/21 - Allergies Allergies/Adverse Reactions: Allergies Allergy/AdvReac Type Severity Reaction Status Date / Time amoxicillin Allergy Unknown Verified 03/27/21 20:09 Penicillins Allergy Hives Verified 03/27/21 20:09 - Social History Does the pt smoke?: Yes Smoking Status: Current every day smoker Does the pt drink ETOH?: No Does the pt have substance abuse?: No - Immunizations Immunizations are current?: Yes - POLST Patient has POLST: No PD ED PE NORMAL - Vitals Vital signs reviewed: Yes - General General: Alert and oriented X 3, Well developed/nourished, Other (appears in pain) - HEENT HEENT: No: Dentition benign (multiple caries with decay lower molar. Some gum swelling without fluctuance nor drainage. ) - Neck Neck: Supple, no meningeal sign, No adenopathy Results - Vitals Vitals: Oxygen O2 Source Room air - Labs Labs: Laboratory Tests 03/27/21 22:10 Urine Color YELLOW Urine Clarity CLEAR Urine pH 7.0 Ur Specific [place] 1.020 Urine Protein NEGATIVE Urine Glucose (UA) NEGATIVE Urine Ketones NEGATIVE Urine Occult Blood NEGATIVE Urine Nitrite NEGATIVE Urine Bilirubin NEGATIVE Urine Urobilinogen 0.2 (NORMAL) Ur Leukocyte Esterase NEGATIVE Ur Microscopic Review NOT INDICATED Urine Culture Comments NOT INDICATED Urine HCG, Qual NEGATIVE PD MEDICAL DECISION MAKING - ED course Complexity details: considered differential, d/w patient ED course: Diagnosis: Dental infection with pain Departure - Departure Disposition: 01 Home, Self Care Condition: Stable Instructions: ED Abscess Dental Follow-Up: CHARLOTTE SERNA MD [Primary Care Provider] - Prescriptions: Clindamycin [Cleocin] 300 mg PO TID 7 Days #20 cap Naproxen Sodium [Naprelan] 375 mg PO BID PRN #20 tab PRN Reason: Pain Chlorhexidine Gluconate [Peridex] 15 ml MM TID #118 ml oxyCODONE [Roxicodone] 5 mg PO Q4-6H PRN #12 tablet PRN Reason: Pain Comments: Stay well-hydrated. Clindamycin 3 times a day for a week for the infection. Naproxen twice daily for anti-inflammatory. To that add Tylenol or oxycodone as needed for pain. Chlorhexidine oral rinse once or twice daily to help with germs around the gums and tooth. Follow-up with [facility] at their earliest available. My narcotic instructions I am prescribing a short course of narcotic pain medication for you. These are potentially dangerous and addictive medications that should be used carefully. These medications may constipate you. Take an ipmz-paz-whokqnc stool softener such as docusate twice daily with plenty of water while taking these medications. If you go 24 hours without a bowel movement, take wupn-zij-jqptemb MiraLAX, per package instructions. Do not drink or drive while taking these medications. If you received narcotic or sedating medications while in the emergency department do not drive for 24 hours. Store this medication in a safe, secure place and out of reach of children. It is a violation of federal law to give or sell this medication to another person or to use in a manner other than prescribed. The ED will not refill narcotic prescriptions, including prescriptions lost or s tolen. You can dispose of unwanted medications at the [facility]'s office or at several pharmacies such as [facility]. Discharge Date/Time: 03/27/21 23:15
[2021-03-27 22:20] LABS: BILIRUBIN,URINE NEGATIVE (NEGATIVE); CLARITY,URINE CLEAR (CLEAR); GLUCOSE, URINE (UA) NEGATIVE (NEGATIVE); KETONES,URINE (UA) NEGATIVE (NEGATIVE); LEUKOCYTE ESTERASE, URINE NEGATIVE (NEGATIVE); NITRITE,URINE NEGATIVE (NEGATIVE); OCCULT BLOOD,URINE NEGATIVE (NEGATIVE); PROTEIN,URINE NEGATIVE (NEGATIVE); UROBILINOGEN,URINE 0.2 (NORMAL) E.U./dL (NORMAL)
[2021-03-27 22:23] LABS: HCG UR QUAL NEGATIVE
[2021-03-27] MEDS ORDERED: NAPROXEN 250 MG TABLET PO STA (22:44)
[2021-03-27] MEDS ORDERED: CLINDAMYCIN 150 MG CAPSULE PO STA (22:44)
[2021-03-27] MEDS ORDERED: oxyCODONE 5 MG TABLET PO STA (22:44)
[2021-03-27 23:26] VITALS: BP 124/78
== END 2021-03-27 23:15 | disposition home or self-care (01) ==
LOC: ED 19:56
DX: K04.7 Periapical abscess without sinus (principal); K02.9 Dental caries, unspecified; F17.200 Nicotine dependence, unspecified, uncomplicated
CPT/HCPCS: 81003; 81025; 99283; A9270; 81001; 87086

== ENCOUNTER 2021-04-11 23:01 | Emergency (ER) | payer MEDICAID ==
[2021-04-12 00:09] LABS: BASOPHILS # (AUTO) 0.1 10^3/uL (0.0-0.1); BASOPHILS % (AUTO) 0.4 %; EOSINOPHILS # (AUTO) 0.1 10^3/uL (0.0-0.7); EOSINOPHILS % (AUTO) 0.7 %; HCT - HEMATOCRIT 42.4 % (37.0-47.0); HGB - HEMOGLOBIN 14.1 g/dL (12.0-16.0); LYMPHOCYTES # (AUTO) 2.4 10^3/uL (1.5-3.5); LYMPHOCYTES % (AUTO) 18.9 %; MEAN CORPUSCULAR HEMOGLOBIN 30.4 pg (27.0-31.0); MEAN CORPUSCULAR HGB CONC 33.3 g/dL (32.0-36.0); MEAN CORPUSCULAR VOLUME 91.4 fL (81.0-99.0); MEAN PLATELET VOLUME 9.4 fL (7.9-10.8); MONOCYTES # (AUTO) 0.8 10^3/uL (0.0-1.0); MONOCYTES % (AUTO) 6.2 %; NEUTROPHILS # (AUTO) 9.3 10^3/uL (1.5-6.6); NEUTROPHILS % (AUTO) 73.2 %; PLT - PLATELET COUNT 399 10^3/uL (130-450); RED BLOOD COUNT 4.64 10^6/uL (4.20-5.40); RED CELL DISTRIBUTION WIDTH 11.9 % (12.0-15.0); WHITE BLOOD COUNT 12.7 x10^3/uL (4.8-10.8)
[2021-04-12 00:15] LABS: BILIRUBIN,URINE NEGATIVE (NEGATIVE); GLUCOSE, URINE (UA) NEGATIVE (NEGATIVE); HCG UR QUAL POSITIVE; KETONES,URINE (UA) NEGATIVE (NEGATIVE); LEUKOCYTE ESTERASE, URINE NEGATIVE (NEGATIVE); NITRITE,URINE NEGATIVE (NEGATIVE); OCCULT BLOOD,URINE TRACE-INTA (NEGATIVE); PH,URINE 5.5 PH (5.0-7.5); PROTEIN,URINE NEGATIVE (NEGATIVE); UROBILINOGEN,URINE 0.2 (NORMAL) E.U./dL (NORMAL)
[2021-04-12 00:16] LABS: CLARITY,URINE CLEAR (CLEAR)
[2021-04-12 00:22] LABS: ALBUMIN 4.2 g/dL (3.2-5.5); ALBUMIN/GLOBULIN RATIO 1.1 (1.0-2.2); BILIRUBIN,TOTAL 0.7 mg/dL (0.2-1.0); CALCIUM 9.2 mg/dL (8.5-10.3); CREATININE 0.8 mg/dL (0.4-1.0)
[2021-04-12] MEDS ORDERED: ACETAMINOPHEN 325 MG TABLET PO STA (01:48)
--- NOTE | 2021-04-12 02:33 | ED Physician Documentation ---
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 Today she has developed some bleeding and pelvic cramping and she has become back to the hospital for evaluation. Review of Systems Constitutional: denies: Fever Eyes: denies: Decreased vision Ears: denies: Ear pain Nose: denies: Congestion Throat: denies: Sore throat Cardiac: denies: Chest pain / pressure Respiratory: denies: Dyspnea, Cough GI: reports: Abdominal Pain, Nausea. denies: Vomiting : reports: Vaginal bleeding, Now EGA. denies: Dysuria, Frequency Skin: denies: Rash Musculoskeletal: denies: Neck pain, Back pain, Extremity pain Neurologic: denies: Generalized weakness, Focal weakness, Numbness PD PAST MEDICAL HISTORY - Past Medical History Past Medical History: Yes Cardiovascular: None Respiratory: Asthma Neuro: Migraines Endocrine/Autoimmune: None GI: Ulcers, Ulcerative colitis GEOTECHNICIAL PROPERTIES TECHNICIAN: None : Other HEENT: None Psych: Depression, Anxiety Musculoskeletal: Osteoarthritis, Other Derm: None - Past Surgical History Past Surgical History: Yes /GEOTECHNICIAL PROPERTIES TECHNICIAN: section - Present Medications Home Medications: Ambulatory Orders Medication Instructions Recorded Confirmed Docusate Sodium 100Mg Capsule 100 mg PO DAILY #20 capsule 10/06/20 03/27/21 [Colace 100Mg Capsule] Gabapentin [Neurontin] 300 mg PO BID 02/08/21 03/27/21 Omeprazole Magnesium 20 mg PO DAILY 02/08/21 03/27/21 Metoclopramide [Reglan] 10 mg PO Q6HR PRN 03/04/21 03/27/21 Chlorhexidine Gluconate [Peridex] 15 ml MM TID #118 ml 03/27/21 Clindamycin [Cleocin] 300 mg PO TID 7 Days #20 cap 03/27/21 Naproxen Sodium [Naprelan] 375 mg PO BID PRN #20 tab 03/27/21 oxyCODONE [Roxicodone] 5 mg PO Q4-6H PRN #12 tablet 03/27/21 - Allergies Allergies/Adverse Reactions: Allergies Allergy/AdvReac Type Severity Reaction Status Date / Time amoxicillin Allergy Unknown Verified 04/11/21 23:42 Penicillins Allergy Hives Verified 04/11/21 23:42 - Social History Does the pt smoke?: Yes Smoking Status: Current every day smoker Does the pt drink ETOH?: No Does the pt have substance abuse?: No - Immunizations Immunizations are current?: Yes - POLST Patient has POLST: No PD ED PE NORMAL - Vitals Vital signs reviewed: Yes (Normal) - General General: Alert and oriented X 3, No acute distress, Well developed/nourished - HEENT HEENT: Atraumatic, PERRL, EOMI - Neck Neck: Supple, no meningeal sign, No bony TTP - Cardiac Cardiac: RRR, No murmur - Respiratory Respiratory: No respiratory distress, Clear bilaterally - Abdomen Abdomen: Normal bowel sounds, Soft, Non tender, Non distended, No organomegaly - Back Back: No CVA TTP, No spinal TTP - Derm Derm: Normal color, Warm and dry, No rash - Extremities Extremities: No deformity, No edema - Neuro Neuro: Alert and oriented X 3, quality control tech 2-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, No motor deficit, No sensory deficit, Normal speech Eye Opening: Spontaneous Motor: Obeys Commands Verbal: Oriented GCS Score: 15 - Psych Psych: Normal mood, Normal affect Results - Vitals Vitals: Vital Signs - 24 hr 04/11/21 04/12/21 04/12/21 23:10 01:44 02:38 Temperature 36.4 C L Heart Rate 82 80 85 Respiratory 18 16 18 Rate Blood Pressure 111/73 112/71 106/76 O2 Saturation 99 100 100 Oxygen O2 Source Room air - Labs Labs: Laboratory Tests 04/11/21 04/11/21 04/11/21 23:50 23:50 23:55 WBC 12.7 H RBC 4.64 Hgb 14.1 Hct 42.4 MCV 91.4 MCH 30.4 MCHC 33.3 RDW 11.9 L Plt Count 399 MPV 9.4 Neut # (Auto) 9.3 H Lymph # (Auto) 2.4 [place] # (Auto) 0.8 Eos # (Auto) 0.1 Baso # (Auto) 0.1 Absolute Nucleated RBC 0.00 Nucleated RBC % 0.0 Sodium Potassium Chloride Carbon Dioxide Anion Gap BUN Creatinine Estimated GFR (MDRD) Glucose Calcium Total Bilirubin AST ALT Alkaline Phosphatase Total Protein Albumin Globulin Albumin/Globulin Ratio Lipase HCG, Quant Urine Color YELLOW Urine Clarity CLEAR Urine pH 5.5 Ur Specific [place] >=1.030 H Urine Protein NEGATIVE Urine Glucose (UA) NEGATIVE Urine Ketones NEGATIVE Urine Occult Blood TRACE-INTA Urine Nitrite NEGATIVE Urine Bilirubin NEGATIVE Urine Urobilinogen 0.2 (NORMAL) Ur Leukocyte Esterase NEGATIVE Ur Microscopic Review NOT INDICATED Urine Culture Comments NOT INDICATED Urine HCG, Qual POSITIVE 04/11/21 04/11/21 23:55 23:55 WBC RBC Hgb Hct MCV MCH MCHC RDW Plt Count MPV Neut # (Auto) Lymph # (Auto) [place] # (Auto) Eos # (Auto) Baso # (Auto) Absolute Nucleated RBC Nucleated RBC % Sodium 136 Potassium 4.0 Chloride 99 L Carbon Dioxide 25 Anion Gap 12.0 BUN 11 Creatinine 0.8 Estimated GFR (MDRD) 83 L Glucose 103 H Calcium 9.2 Total Bilirubin 0.7 AST 14 ALT 14 Alkaline Phosphatase 62 Total Protein 8.0 Albumin 4.2 Globulin 3.8 Albumin/Globulin Ratio 1.1 Lipase 25 HCG, Quant 462.05 Urine Color Urine Clarity Urine pH Ur Specific [place] Urine Protein Urine Glucose (UA) Urine Ketones Urine Occult Blood Urine Nitrite Urine Bilirubin Urine Urobilinogen Ur Leukocyte Esterase Ur Microscopic Review Urine Culture Comments Urine HCG, Qual - Rads (name of study) u/s OB Radiology: Prelim report reviewed (Impression: No gestational sac within the uterus or evidence of intrauterine on current examination. No adnexal mass. Bilateral ovaries containing vascular flow.), EMP read indepedently, See rad report PD MEDICAL DECISION MAKING - ED course Complexity details: reviewed results, re-evaluated patient, considered differential, d/w patient, d/w family ED course: 30-year-old female with a early stage of has a quantitative hCG is 462. There is no ultrasound evidence of an intrauterine . This is not unexpected. The patient is experiencing some cramping and bleeding and may be in the middle of a miscarriage but she will require a second blood draw in 2 days time. I have discussed the findings with the patient and indicate the importance of the follow-up blood test and its potential implications. Departure - Departure Disposition: 01 Home, Self Care Clinical Impression: Early stage of Condition: Stable Instructions: ED Abdominal Pain Rule Out Ectopic Follow-Up: CHARLOTTE SERNA MD [Primary Care Provider] - Comments: Today your is too early to see a fetus on ultrasound. There is a need to repeat blood work in 2 days time. Today your quantitative hCG G number is 462. Follow-up with your regular doctor to repeat this blood work as a result will help us determine if there is further worry about ectopic miscarriage or normal . Discharge Date/Time: 04/12/21 02:40
[2021-04-12 02:38] VITALS: BP 106/76
--- NOTE | 2021-04-12 07:45 | Ultrasound Report ---
PROCEDURE: OB First Trimester w/TV INDICATIONS: early cramping and bleeding OUTSIDE/PRIOR DATING DATA: Last menstrual period (LMP): 03/04/2021. LMP-based estimated date of delivery (ESTHER): 12/09/2021. First dating scan (date and location): 04/12/2021. Estimated date of delivery (ESTHER) from first dating scan: Not applicable. TECHNIQUE: Real-time scanning was performed of the fetus and maternal pelvic organs, with image documentation. Endovaginal scanning was also performed to better visualize the fetus and maternal ovaries. COMPARISON: None. FINDINGS: There is no evidence for intrauterine gestational sac. Maternal organs: Ovaries are visualized and appear unremarkable. Right ovary measures 3.4 x 2.4 x 2. 1 cm. Left ovary measures 3.6 x 2.6 x 2.6 cm. No suspicious ovarian or adnexal mass lesions on either side. Vascular flow noted bilaterally. No pathologic pelvic free fluid seen. IMPRESSION: No sonographic evidence for intrauterine gestational sac or evidence for intrauterine . No a dnexal mass lesions. No pathologic pelvic free fluid. Bilateral ovaries demonstrating vascular flow. Given reported history of positive test, findings may represent an early normal intrauterin e although an ectopic not completely excluded at this time. Recommend continued c linical surveillance with follow-up imaging as needed. No significant discrepancy with initial interpretation by overnight radiologist. Reviewed by: Foreign Covarrubias MD on 04/12/2021 7:43 AM PDT Approved by: Foreign Covarrubias MD on 04/12/2021 7:43 AM PDT Station ID: [id number]
== END 2021-04-12 02:40 | disposition home or self-care (01) ==
LOC: ED 23:01
DX: O20.9 Hemorrhage in early pregnancy, unspecified (principal); O99.331 Smoking (tobacco) complicating pregnancy, first trimester; F17.200 Nicotine dependence, unspecified, uncomplicated; Z3A.00 Weeks of gestation of pregnancy not specified
CPT/HCPCS: 36415; 76801; 76817; 80053; 81003; 81025; 83690; 84702; 85025; 99283; 99284; A9270; 81001; 87086

== ENCOUNTER 2021-04-12 13:34 | Outpatient (CLI) | payer MEDICAID | END 2021-04-12 13:35 | disposition critical access hospital (66) | LOC: EMS 13:34 | DX: O99.891 Other specified diseases and conditions complicating pregnancy (principal); R55 Syncope and collapse; R10.9 Unspecified abdominal pain; Z3A.01 Less than 8 weeks gestation of pregnancy | CPT/HCPCS: A0425; A0429; A0999 ==

== ENCOUNTER 2021-04-12 13:57 | Emergency (ER) | payer MEDICAID ==
[2021-04-12 15:10] LABS: BASOPHILS # (AUTO) 0.1 10^3/uL (0.0-0.1); BASOPHILS % (AUTO) 0.5 %; EOSINOPHILS # (AUTO) 0.1 10^3/uL (0.0-0.7); EOSINOPHILS % (AUTO) 0.6 %; HCT - HEMATOCRIT 42.4 % (37.0-47.0); HGB - HEMOGLOBIN 14.5 g/dL (12.0-16.0); LYMPHOCYTES # (AUTO) 2.2 10^3/uL (1.5-3.5); LYMPHOCYTES % (AUTO) 19.9 %; MEAN CORPUSCULAR HEMOGLOBIN 30.7 pg (27.0-31.0); MEAN CORPUSCULAR HGB CONC 34.2 g/dL (32.0-36.0); MEAN CORPUSCULAR VOLUME 89.6 fL (81.0-99.0); MEAN PLATELET VOLUME 9.4 fL (7.9-10.8); MONOCYTES # (AUTO) 0.9 10^3/uL (0.0-1.0); NEUTROPHILS # (AUTO) 7.6 10^3/uL (1.5-6.6); NEUTROPHILS % (AUTO) 70.4 %; PLT - PLATELET COUNT 376 10^3/uL (130-450); RED BLOOD COUNT 4.73 10^6/uL (4.20-5.40); RED CELL DISTRIBUTION WIDTH 11.9 % (12.0-15.0); WHITE BLOOD COUNT 10.8 x10^3/uL (4.8-10.8)
[2021-04-12 15:20] LABS: BILIRUBIN,TOTAL 0.9 mg/dL (0.2-1.0); CALCIUM 9.1 mg/dL (8.5-10.3); CREATININE 0.8 mg/dL (0.4-1.0); POTASSIUM 4.2 mmol/L (3.5-5.0)
[2021-04-12] MEDS ORDERED: ACETAMINOPHEN 325 MG TABLET PO STA (15:58)
--- NOTE | 2021-04-12 16:02 | ED Physician Documentation ---
History of Present Illness - Stated complaint Stated Complaint: 6WKS PREG/SYNCOPE - Chief complaint Chief Complaint: Neuro - History obtained from History obtained from: Patient - History of Present Illness Timing: Today Pain level max: 7 Pain level now: 4 - Additonal information Additional information: Patient is a 30-year-old female who is estimated to be about 6 weeks . She states that she has had lower abdominal cramping and pain for the past several days. Seen here this morning, ultrasound did not show any evidence of an IUP at this time. Her hCG was less than 500. Patient states that she has had continued pain since that time. She states that today she went and ran errands, upon arriving home she felt lightheaded and dizzy and "passed out". She now complains of neck and back pain in addition to the lower abdominal pain. She states she passed a blood clot yesterday. Better with rest, worse with movement. 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 SETTER: section - Present Medications Home Medications: Ambulatory Orders Medication Instructions Recorded Confirmed Docusate Sodium 100Mg Capsule 100 mg PO DAILY #20 capsule 10/06/20 03/27/21 [Colace 100Mg Capsule] Gabapentin [Neurontin] 300 mg PO BID 02/08/21 03/27/21 Omeprazole Magnesium 20 mg PO DAILY 02/08/21 03/27/21 Metoclopramide [Reglan] 10 mg PO Q6HR PRN 03/04/21 03/27/21 Chlorhexidine Gluconate [Peridex] 15 ml MM TID #118 ml 03/27/21 Clindamycin [Cleocin] 300 mg PO TID 7 Days #20 cap 03/27/21 Naproxen Sodium [Naprelan] 375 mg PO BID PRN #20 tab 03/27/21 oxyCODONE [Roxicodone] 5 mg PO Q4-6H PRN #12 tablet 03/27/21 Ibuprofen [Motrin] 800 mg PO Q8H PRN #30 tablet 04/12/21 - Allergies Allergies/Adverse Reactions: Allergies Allergy/AdvReac Type Severity Reaction Status Date / Time amoxicillin Allergy Unknown Verified 04/12/21 14:05 Penicillins Allergy Hives Verified 04/12/21 14:05 - Social History Does the pt smoke?: Yes Smoking Status: Current every day smoker Does the pt drink ETOH?: No Does the pt have substance abuse?: No - Immunizations Immunizations are current?: Yes - POLST Patient has POLST: No PD ED PE NORMAL - Vitals Vital signs reviewed: Yes - General General: Alert and oriented X 3, No acute distress - HEENT HEENT: Moist mucous membranes - Neck Neck: Supple, no meningeal sign - Cardiac Cardiac: RRR, Strong equal pulses - Respiratory Respiratory: No respiratory distress, Clear bilaterally - Abdomen Abdomen: Normal bowel sounds, Soft, Non distended, Other (Mild diffuse tenderness to palpation without peritoneal signs) - Back Back: No CVA TTP, No spinal TTP - Derm Derm: Warm and dry - Extremities Extremities: No edema - Neuro Neuro: Alert and oriented X 3 - Psych Psych: Normal mood, Normal affect Results - Vitals Vitals: Vital Signs - 24 hr 04/12/21 04/12/21 14:05 16:23 Temperature 36.5 C 36.2 C L Heart Rate 88 73 Respiratory 16 16 Rate Blood Pressure 114/57 L 110/77 O2 Saturation 94 100 Oxygen O2 Source Room air - EKG (time done) 1610 Rate: Rate (enter#) (77) Rhythm: NSR [place]: Normal Intervals: Normal [place] QRS: Normal Ischemia: Normal ST segments - Labs Labs: Laboratory Tests 04/12/21 04/12/21 04/12/21 15:01 15:01 16:15 WBC 10.8 RBC 4.73 Hgb 14.5 Hct 42.4 MCV 89.6 MCH 30.7 MCHC 34.2 RDW 11.9 L Plt Count 376 MPV 9.4 Neut # (Auto) 7.6 H Lymph # (Auto) 2.2 [place] # (Auto) 0.9 Eos # (Auto) 0.1 Baso # (Auto) 0.1 Absolute Nucleated RBC 0.00 Nucleated RBC % 0.0 Sodium 135 Potassium 4.2 Chloride 101 Carbon Dioxide 24 Anion Gap 10.0 BUN 10 Creatinine 0.8 Estimated GFR (MDRD) 83 L Glucose 113 H Calcium 9.1 Total Bilirubin 0.9 AST 16 ALT 14 Alkaline Phosphatase 60 Total Protein 8.0 Albumin 4.0 Globulin 4.0 Albumin/Globulin Ratio 1.0 Lipase 24 Urine Color YELLOW Urine Clarity CLEAR Urine pH 6.0 Ur Specific [place] 1.025 Urine Protein NEGATIVE Urine Glucose (UA) NEGATIVE Urine Ketones 15 H Urine Occult Blood NEGATIVE Urine Nitrite NEGATIVE Urine Bilirubin NEGATIVE Urine Urobilinogen 0.2 (NORMAL) Ur Leukocyte Esterase NEGATIVE Ur Microscopic Review NOT INDICATED Urine Culture Comments NOT INDICATED PD MEDICAL DECISION MAKING - ED course Complexity details: reviewed results, re-evaluated patient, considered differential, d/w patient ED course: Patient is a 30-year-old female who believes she is about 6 weeks . Reviewed her ultrasound from last night, did not show an IUP at this time, though her hCG was under 500. Discussed the case with Dr. Lew, OB on-call. She recommends follow-up in clinic for repeat hCG in 2 to 3 days. Pain well controlled with Motrin and Tylenol. No indication for x-rays at this time. C- spine cleared Via Nexus criteria. No indication for head CT. GCS 15. We will have the patient follow-up with OB for further care. Patient counseled regarding signs and symptoms for which I believe and urgent re-evaluation would be necessary. Patient with good understanding of and agreement to plan and is comfortable going home at this time This document was made in part using voice recognition software. While efforts are made to proofread this document, sound alike and grammatical errors may occur. Departure - Departure Disposition: 01 Home, Self Care Clinical Impression: Syncope Qualifiers: Syncope type: unspecified Qualified Code(s): R55 - Syncope and collapse Qualifiers: Weeks of gestation: less than 8 weeks Qualified Code(s): Z3A.01 - Less than 8 weeks gestation of Condition: Good Instructions: ED Care, ED Syncope Vasovagal Follow-Up: CHARLOTTE SERNA MD [Primary Care Provider] - [facility] [Provider Group] Kennedy Lew DO [Provider Admit Priv/Credential] - Prescriptions: Ibuprofen [Motrin] 800 mg PO Q8H PRN #30 tablet PRN Reason: PAIN &/OR FEVER Comments: Follow-up with OB for further care. You should have your hCG level retested in about 3 days. Your ultrasound does not show any intrauterine yet, as we discussed your hCG level is low, so it may just be early in . If the hCG level is increasing, they will likely want to repeat your ultrasound, and if it is decreasing, it likely indicates a miscarriage. You need to follow- up with OB either way. Drink plenty of fluids. You can use Motrin or Tylenol as needed for pain. Discharge Date/Time: 04/12/21 17:20
[2021-04-12] MEDS ORDERED: IBUPROFEN 600 MG TABLET PO STA (16:08)
[2021-04-12 16:24] VITALS: BP 110/77
[2021-04-12 16:29] LABS: BILIRUBIN,URINE NEGATIVE (NEGATIVE); GLUCOSE, URINE (UA) NEGATIVE (NEGATIVE); KETONES,URINE (UA) 15 mg/dL (NEGATIVE); LEUKOCYTE ESTERASE, URINE NEGATIVE (NEGATIVE); NITRITE,URINE NEGATIVE (NEGATIVE); OCCULT BLOOD,URINE NEGATIVE (NEGATIVE); PROTEIN,URINE NEGATIVE (NEGATIVE); UROBILINOGEN,URINE 0.2 (NORMAL) E.U./dL (NORMAL)
[2021-04-12 16:35] LABS: CLARITY,URINE CLEAR (CLEAR)
== END 2021-04-12 17:20 | disposition home or self-care (01) ==
LOC: ED 13:57
DX: O99.891 Other specified diseases and conditions complicating pregnancy (principal); R55 Syncope and collapse; M54.2 Cervicalgia; O99.331 Smoking (tobacco) complicating pregnancy, first trimester; F17.200 Nicotine dependence, unspecified, uncomplicated; Z3A.01 Less than 8 weeks gestation of pregnancy
CPT/HCPCS: 36415; 80053; 81003; 83690; 85025; 93005; 99284; A9270; 81001; 87086

== ENCOUNTER 2021-04-15 12:41 | Outpatient (CLI) | payer MEDICAID | END 2021-04-15 12:42 | disposition home or self-care (01) | LOC: LAB 12:41 | PROVIDERS: ATTEND Internal Medicine | DX: Z34.90 Encounter for supervision of normal pregnancy, unspecified, unspecified trimester (principal) | CPT/HCPCS: 36415; 84702 ==

== ENCOUNTER 2021-04-20 21:56 | Emergency (ER) | payer MEDICAID ==
[2021-04-20 22:21] LABS: BILIRUBIN,URINE NEGATIVE (NEGATIVE); GLUCOSE, URINE (UA) NEGATIVE (NEGATIVE); KETONES,URINE (UA) NEGATIVE (NEGATIVE); LEUKOCYTE ESTERASE, URINE NEGATIVE (NEGATIVE); NITRITE,URINE NEGATIVE (NEGATIVE); OCCULT BLOOD,URINE NEGATIVE (NEGATIVE); PH,URINE 6.5 PH (5.0-7.5); PROTEIN,URINE NEGATIVE (NEGATIVE); UROBILINOGEN,URINE 0.2 (NORMAL) E.U./dL (NORMAL)
[2021-04-20 22:22] LABS: BASOPHILS % (AUTO) 0.2 %; EOSINOPHILS # (AUTO) 0.1 10^3/uL (0.0-0.7); EOSINOPHILS % (AUTO) 1.1 %; HCT - HEMATOCRIT 40.6 % (37.0-47.0); HGB - HEMOGLOBIN 13.5 g/dL (12.0-16.0); LYMPHOCYTES # (AUTO) 2.2 10^3/uL (1.5-3.5); LYMPHOCYTES % (AUTO) 17.9 %; MEAN CORPUSCULAR HEMOGLOBIN 30.7 pg (27.0-31.0); MEAN CORPUSCULAR HGB CONC 33.3 g/dL (32.0-36.0); MEAN CORPUSCULAR VOLUME 92.3 fL (81.0-99.0); MEAN PLATELET VOLUME 9.2 fL (7.9-10.8); MONOCYTES # (AUTO) 0.9 10^3/uL (0.0-1.0); MONOCYTES % (AUTO) 7.3 %; NEUTROPHILS # (AUTO) 8.9 10^3/uL (1.5-6.6); NEUTROPHILS % (AUTO) 72.8 %; PLT - PLATELET COUNT 367 10^3/uL (130-450); RED CELL DISTRIBUTION WIDTH 12.1 % (12.0-15.0); WHITE BLOOD COUNT 12.2 x10^3/uL (4.8-10.8)
[2021-04-20 22:23] LABS: CLARITY,URINE CLEAR (CLEAR); HCG UR QUAL POSITIVE
[2021-04-20 22:35] LABS: ALBUMIN 3.9 g/dL (3.2-5.5); ALBUMIN/GLOBULIN RATIO 1.1 (1.0-2.2); BILIRUBIN,TOTAL 0.6 mg/dL (0.2-1.0); CALCIUM 9.2 mg/dL (8.5-10.3); CREATININE 0.7 mg/dL (0.4-1.0); POTASSIUM 4.2 mmol/L (3.5-5.0); TOTAL PROTEIN 7.6 g/dL (6.7-8.2)
[2021-04-20] MEDS ORDERED: ONDANSETRON ODT 4 MG TABLET TL STA (22:47)
[2021-04-20] MEDS ORDERED: ACETAMINOPHEN 325 MG TABLET PO STA (22:47)
--- NOTE | 2021-04-21 01:22 | ED Physician Documentation ---
History of Present Illness - Stated complaint Stated Complaint: CRAMPING, CONSTIPATION/OB - Chief complaint Chief Complaint: Abd Pain - History obtained from History obtained from: Patient - Additonal information Additional information: 30-year-old woman with LMP March 04, currently , presents with cramping lower abdominal pain and vaginal spotting today. Also had some cramping and constipation yesterday. Patient has past medical history of cancerous polyps in the intestines. Denies fevers, Contraction-like pain, back pain, urinary symptoms, abnormal discharge. Review of Systems Ten Systems: 10 systems reviewed and negative Constitutional: denies: Fever, Chills GI: reports: Abdominal Pain, Nausea. denies: Vomiting : reports: Vaginal bleeding. 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 - Past Surgical History Past Surgical History: Yes /FOUR H CLUB AGENT: section - Present Medications Home Medications: Ambulatory Orders Medication Instructions Recorded Confirmed Docusate Sodium 100Mg Capsule 100 mg PO DAILY #20 capsule 10/06/20 03/27/21 [Colace 100Mg Capsule] Gabapentin [Neurontin] 300 mg PO BID 02/08/21 03/27/21 Omeprazole Magnesium 20 mg PO DAILY 02/08/21 03/27/21 Metoclopramide [Reglan] 10 mg PO Q6HR PRN 03/04/21 03/27/21 Chlorhexidine Gluconate [Peridex] 15 ml MM TID #118 ml 03/27/21 Clindamycin [Cleocin] 300 mg PO TID 7 Days #20 cap 03/27/21 Naproxen Sodium [Naprelan] 375 mg PO BID PRN #20 tab 03/27/21 oxyCODONE [Roxicodone] 5 mg PO Q4-6H PRN #12 tablet 03/27/21 Ibuprofen [Motrin] 800 mg PO Q8H PRN #30 tablet 04/12/21 - Allergies Allergies/Adverse Reactions: Allergies Allergy/AdvReac Type Severity Reaction Status Date / Time amoxicillin Allergy Unknown Verified 04/20/21 22:03 Penicillins Allergy Hives Verified 04/20/21 22:03 - Social History Does the pt smoke?: Yes Smoking Status: Current every day smoker Does the pt drink ETOH?: No Does the pt have substance abuse?: No - Immunizations Immunizations are current?: Yes - POLST Patient has POLST: No PD ED PE NORMAL - Vitals Vital signs reviewed: Yes - General General: Alert and oriented X 3, No acute distress, Well developed/nourished - HEENT HEENT: Atraumatic, PERRL, EOMI - Neck Neck: Supple, no meningeal sign - Cardiac Cardiac: RRR - Respiratory Respiratory: No respiratory distress, Clear bilaterally - Abdomen Abdomen: Non tender, Non distended - Female Female : 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 Closed cervix. Physiologic discharge. No cervical motion tenderness or adnexal tenderness.) - Back Back: No CVA TTP - Derm Derm: Normal color, Warm and dry - Extremities Extremities: No deformity, No edema - Neuro Neuro: Alert and oriented X 3 - Psych Psych: Normal mood, Normal affect Results - Vitals Vitals: Vital Signs - 24 hr 04/20/21 04/21/21 22:03 00:06 Temperature 36.5 C 36.7 C Heart Rate 95 67 Respiratory 16 16 Rate Blood Pressure 143/76 H 124/82 H O2 Saturation 99 100 Oxygen O2 Source Room air - Labs Labs: Laboratory Tests 04/20/21 04/20/21 04/20/21 22:01 22:01 22:18 WBC 12.2 H RBC 4.40 Hgb 13.5 Hct 40.6 MCV 92.3 MCH 30.7 MCHC 33.3 RDW 12.1 Plt Count 367 MPV 9.2 Neut # (Auto) 8.9 H Lymph # (Auto) 2.2 [place] # (Auto) 0.9 Eos # (Auto) 0.1 Baso # (Auto) 0.0 Absolute Nucleated RBC 0.00 Nucleated RBC % 0.0 Sodium Potassium Chloride Carbon Dioxide Anion Gap BUN Creatinine Estimated GFR (MDRD) Glucose Calcium Total Bilirubin AST ALT Alkaline Phosphatase Total Protein Albumin Globulin Albumin/Globulin Ratio Lipase HCG, Quant Urine Color COLORLESS Urine Clarity CLEAR Urine pH 6.5 Ur Specific [place] <=1.005 Urine Protein NEGATIVE Urine Glucose (UA) NEGATIVE Urine Ketones NEGATIVE Urine Occult Blood NEGATIVE Urine Nitrite NEGATIVE Urine Bilirubin NEGATIVE Urine Urobilinogen 0.2 (NORMAL) Ur Leukocyte Esterase NEGATIVE Ur Microscopic Review NOT INDICATED Urine Culture Comments NOT INDICATED Urine HCG, Qual POSITIVE Blood Type Antibody Screen 04/20/21 04/20/21 04/20/21 22:18 22:45 22:45 WBC RBC Hgb Hct MCV MCH MCHC RDW Plt Count MPV Neut # (Auto) Lymph # (Auto) [place] # (Auto) Eos # (Auto) Baso # (Auto) Absolute Nucleated RBC Nucleated RBC % Sodium 139 Potassium 4.2 Chloride 105 Carbon Dioxide 27 Anion Gap 7.0 BUN 9 Creatinine 0.7 Estimated GFR (MDRD) 97 Glucose 87 Calcium 9.2 Total Bilirubin 0.6 AST 15 ALT 16 Alkaline Phosphatase 58 Total Protein 7.6 Albumin 3.9 Globulin 3.7 Albumin/Globulin Ratio 1.1 Lipase 32 HCG, Quant 03027.00 Urine Color Urine Clarity Urine pH Ur Specific [place] Urine Protein Urine Glucose (UA) Urine Ketones Urine Occult Blood Urine Nitrite Urine Bilirubin Urine Urobilinogen Ur Leukocyte Esterase Ur Microscopic Review Urine Culture Comments Urine HCG, Qual Blood Type B POSITIVE Antibody Screen POSITIVE PD MEDICAL DECISION MAKING - ED course ED course: 30-year-old woman, currently presents for evaluation of vaginal spotting. Her ultrasound showed A viable embryo at 5 weeks 6 days with low heart rate, but our tech informed me that she had difficulty getting a heart rate at all since the is so early, therefore this may be artifact. Cervix is closed and no blood in the vaginal vault on exam. I communicated to the patient that she should rest and also have pelvic rest until she follows up with her OB April 28. Return precautions given. Departure - Departure Disposition: 01 Home, Self Care Clinical Impression: Miscarriage, threatened, early Condition: Good Instructions: ED Miscarriage Poss Comments: You were seen in the emergency department for evaluation of possible miscarriage. An ultrasound did not show any abnormalities except for a low heart rate, which can be inaccurate this early in . Your pelvic exams showed a closed cervix which is reassuring. We tested you for yeast infection and you can follow-up the results on your patient health portal. Please return to the emergency department if you have any new or worsening symptoms or other concerns. Follow-up with your FOOD EXPEDITOR. Forms: Activity restrictions
[2021-04-21 01:31] VITALS: BP 114/72
[2021-04-21 02:54] LABS: BACTERIAL VAGINOSIS DNA NEGATIVE (NEGATIVE); CANDIDA GLABRATA DNA NEGATIVE (NEGATIVE); CANDIDA GROUP DNA POSITIVE (NEGATIVE); CANDIDA KRUSEI DNA NEGATIVE (NEGATIVE); TRICHOMONAS VAGINALIS DNA NEGATIVE (NEGATIVE)
--- NOTE | 2021-04-21 09:22 | Ultrasound Report ---
PROCEDURE: OB First Trimester w/TV INDICATIONS: spotting in OUTSIDE/PRIOR DATING DATA: Last menstrual period (LMP): 03/04/2021. LMP-based estimated date of delivery (ESTHER): 12/09/2021. First dating scan (date and location): 04/20/2021. Estimated date of delivery (ESTHER) from first dating scan: 12/15/2021. The below data below was generated using the ultrasound ESTHER of 12/15/2021 TECHNIQUE: Real-time scanning was performed of the fetus and maternal pelvic organs, with image documentation. Endovaginal scanning was also performed to better visualize the fetus and maternal ovaries. COMPARISON: 04/12/2021 FINDINGS: Embryo: pole with a crown-rump length of 0.28 cm. This corresponds to 5 week 6 day gestation. Normal yolk sac is present. Detectable cardiac activity at a rate of 97 bpm. No. Gestational hemorrha ge. Measurement variability in dating: +/- 4 weeks by LMP, +/- 7 days by mean sac diameter (use before 6 weeks gestation if crown-rump length not able to be measured), +/- 5 days by crown-rump length (6-12 weeks gestation). Maternal organs: The cervix is closed. The right ovary measures 5.1 x 1.7 x 2.2 cm. The left ovary m easures 3.9 x 1.6 x 1.6 cm and contains a 1.7 cm corpus luteum. There is normal vascularity in each o vary. IMPRESSION: 1. Single living intrauterine with a gestational age of 5 weeks, 6 days +/- 4 days. 2. Sonographically derived due date of 12/15/2021. 3. Left ovarian corpus luteum. 4. No perigestational hemorrhage. 5. Concordant with preliminary report. Reviewed by: Francia Sherwood MD on 04/21/2021 9:20 AM PDT Approved by: Francia Sherwood MD on 04/21/2021 9:20 AM PDT Station ID: [id number]
== END 2021-04-21 01:31 | disposition home or self-care (01) ==
LOC: ED 21:56
DX: O20.0 Threatened abortion (principal); O99.331 Smoking (tobacco) complicating pregnancy, first trimester; F17.200 Nicotine dependence, unspecified, uncomplicated; Z3A.01 Less than 8 weeks gestation of pregnancy
CPT/HCPCS: 36415; 76801; 76817; 80053; 81003; 81025; 83690; 84702; 85025; 86850; 86870; 86880; 86900; 86901; 87481; 87661; 87801; 99284; A9270; Q0162; 81001; 87086

== ENCOUNTER 2021-04-30 21:49 | Emergency (ER) | payer MEDICAID ==
[2021-04-30 23:33] LABS: BILIRUBIN,URINE NEGATIVE (NEGATIVE); GLUCOSE, URINE (UA) NEGATIVE (NEGATIVE); KETONES,URINE (UA) TRACE mg/dL (NEGATIVE); LEUKOCYTE ESTERASE, URINE NEGATIVE (NEGATIVE); NITRITE,URINE NEGATIVE (NEGATIVE); OCCULT BLOOD,URINE LARGE (NEGATIVE); PH,URINE 5.5 PH (5.0-7.5); PROTEIN,URINE NEGATIVE (NEGATIVE); UROBILINOGEN,URINE 0.2 (NORMAL) E.U./dL (NORMAL)
[2021-04-30 23:47] LABS: CLARITY,URINE CLEAR (CLEAR); HCG UR QUAL POSITIVE
[2021-04-30 23:49] LABS: BACTERIA,URINE Rare /HPF (None Seen); RBC,URINE TNTC /HPF (0-5); SQUAMOUS EPITHELIAL CELL,UR MOD Squamous (<= Few); WBC,URINE 0-3 /HPF (0-5)
[2021-04-30 23:55] LABS: BASOPHILS % (AUTO) 0.3 %; EOSINOPHILS # (AUTO) 0.1 10^3/uL (0.0-0.7); EOSINOPHILS % (AUTO) 0.8 %; HCT - HEMATOCRIT 40.7 % (37.0-47.0); HGB - HEMOGLOBIN 13.7 g/dL (12.0-16.0); LYMPHOCYTES # (AUTO) 2.5 10^3/uL (1.5-3.5); LYMPHOCYTES % (AUTO) 16.9 %; MEAN CORPUSCULAR HEMOGLOBIN 30.6 pg (27.0-31.0); MEAN CORPUSCULAR HGB CONC 33.7 g/dL (32.0-36.0); MEAN CORPUSCULAR VOLUME 91.1 fL (81.0-99.0); MEAN PLATELET VOLUME 9.5 fL (7.9-10.8); MONOCYTES # (AUTO) 1.1 10^3/uL (0.0-1.0); MONOCYTES % (AUTO) 7.2 %; NEUTROPHILS # (AUTO) 10.9 10^3/uL (1.5-6.6); NEUTROPHILS % (AUTO) 74.4 %; PLT - PLATELET COUNT 347 10^3/uL (130-450); RED BLOOD COUNT 4.47 10^6/uL (4.20-5.40); RED CELL DISTRIBUTION WIDTH 12.1 % (12.0-15.0); WHITE BLOOD COUNT 14.6 x10^3/uL (4.8-10.8)
[2021-05-01 00:09] LABS: ALBUMIN 4.1 g/dL (3.2-5.5); BILIRUBIN,TOTAL 0.5 mg/dL (0.2-1.0); CALCIUM 9.1 mg/dL (8.5-10.3); CREATININE 0.8 mg/dL (0.4-1.0); POTASSIUM 3.9 mmol/L (3.5-5.0); TOTAL PROTEIN 8.1 g/dL (6.7-8.2)
--- NOTE | 2021-05-01 01:58 | ED Physician Documentation ---
History of Present Illness - Stated complaint Stated Complaint: BLEED/8 WEEKS - Chief complaint Chief Complaint: Abd Pain - History obtained from History obtained from: Patient - Additonal information Additional information: 30-year-old G4, P2 with LMP 6/12 p/w bright red blood per vagina around 2100 this past evening that has now tapered to vaginal spotting. denies back pain, fever, urinary sx, abd pain. 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 Review of Systems Ten Systems: 10 systems reviewed and negative Constitutional: denies: Fever, Chills GI: denies: Abdominal Pain : reports: Vaginal bleeding Musculoskeletal: denies: Back pain PD PAST MEDICAL HISTORY - Past Medical History Past Medical History: Yes Cardiovascular: None Respiratory: Asthma Neuro: Migraines Endocrine/Autoimmune: None GI: Ulcers, Ulcerative colitis, Other MEDICAL SCIENCE LIAISON: None : Other HEENT: None Psych: Depression, Anxiety Musculoskeletal: Osteoarthritis, Other Derm: None - Past Surgical History Past Surgical History: Yes /MEDICAL SCIENCE LIAISON: section - Present Medications Home Medications: Ambulatory Orders Medication Instructions Recorded Confirmed Docusate Sodium 100Mg Capsule 100 mg PO DAILY #20 capsule 10/06/20 03/27/21 [Colace 100Mg Capsule] Gabapentin [Neurontin] 300 mg PO BID 02/08/21 03/27/21 Omeprazole Magnesium 20 mg PO DAILY 02/08/21 03/27/21 Metoclopramide [Reglan] 10 mg PO Q6HR PRN 03/04/21 03/27/21 Chlorhexidine Gluconate [Peridex] 15 ml MM TID #118 ml 03/27/21 Clindamycin [Cleocin] 300 mg PO TID 7 Days #20 cap 03/27/21 Naproxen Sodium [Naprelan] 375 mg PO BID PRN #20 tab 03/27/21 oxyCODONE [Roxicodone] 5 mg PO Q4-6H PRN #12 tablet 03/27/21 Ibuprofen [Motrin] 800 mg PO Q8H PRN #30 tablet 04/12/21 - Allergies Allergies/Adverse Reactions: Allergies Allergy/AdvReac Type Severity Reaction Status Date / Time amoxicillin Allergy Unknown Verified 04/20/21 22:03 Penicillins Allergy Hives Verified 04/20/21 22:03 - Social History Does the pt smoke?: Yes Smoking Status: Current every day smoker Does the pt drink ETOH?: No Does the pt have substance abuse?: No - Immunizations Immunizations are current?: Yes - POLST Patient has POLST: No PD ED PE NORMAL - Vitals Vital signs reviewed: Yes - General General: Alert and oriented X 3, No acute distress, Well developed/nourished - HEENT HEENT: Atraumatic, PERRL, EOMI - Neck Neck: Supple, no meningeal sign - Cardiac Cardiac: RRR - Respiratory Respiratory: No respiratory distress, Clear bilaterally - Abdomen Abdomen: Non tender, Non distended - Back Back: No CVA TTP - Derm Derm: Normal color, Warm and dry - Extremities Extremities: No deformity - Neuro Neuro: Alert and oriented X 3 - Psych Psych: Normal mood, Normal affect Results - Vitals Vitals: Vital Signs - 24 hr 04/30/21 04/30/21 21:55 23:51 Temperature 36.5 C 36.5 C Heart Rate 90 90 Respiratory 16 16 Rate Blood Pressure 114/66 115/65 O2 Saturation 98 98 Oxygen O2 Source Room air - Labs Labs: Laboratory Tests 04/30/21 04/30/21 04/30/21 23:27 23:45 23:45 WBC 14.6 H RBC 4.47 Hgb 13.7 Hct 40.7 MCV 91.1 MCH 30.6 MCHC 33.7 RDW 12.1 Plt Count 347 MPV 9.5 Neut # (Auto) 10.9 H Lymph # (Auto) 2.5 [place] # (Auto) 1.1 H Eos # (Auto) 0.1 Baso # (Auto) 0.0 Absolute Nucleated RBC 0.00 Nucleated RBC % 0.0 Sodium 135 Potassium 3.9 Chloride 99 L Carbon Dioxide 26 Anion Gap 10.0 BUN 12 Creatinine 0.8 Estimated GFR (MDRD) 83 L Glucose 105 H Calcium 9.1 Total Bilirubin 0.5 AST 19 ALT 21 Alkaline Phosphatase 64 Total Protein 8.1 Albumin 4.1 Globulin 4.0 Albumin/Globulin Ratio 1.0 Lipase 27 HCG, Quant Urine Color YELLOW Urine Clarity CLEAR Urine pH 5.5 Ur Specific [place] >=1.030 H Urine Protein NEGATIVE Urine Glucose (UA) NEGATIVE Urine Ketones TRACE Urine Occult Blood LARGE H Urine Nitrite NEGATIVE Urine Bilirubin NEGATIVE Urine Urobilinogen 0.2 (NORMAL) Ur Leukocyte Esterase NEGATIVE Urine RBC TNTC H Urine WBC 0-3 Ur Squamous Epith Cells MOD Squamous H Urine Bacteria Rare Ur Microscopic Review INDICATED Urine Culture Comments NOT INDICATED Urine HCG, Qual POSITIVE 04/30/21 23:45 WBC RBC Hgb Hct MCV MCH MCHC RDW Plt Count MPV Neut # (Auto) Lymph # (Auto) [place] # (Auto) Eos # (Auto) Baso # (Auto) Absolute Nucleated RBC Nucleated RBC % Sodium Potassium Chloride Carbon Dioxide Anion Gap BUN Creatinine Estimated GFR (MDRD) Glucose Calcium Total Bilirubin AST ALT Alkaline Phosphatase Total Protein Albumin Globulin Albumin/Globulin Ratio Lipase HCG, Quant 34433.00 Urine Color Urine Clarity Urine pH Ur Specific [place] Urine Protein Urine Glucose (UA) Urine Ketones Urine Occult Blood Urine Nitrite Urine Bilirubin Urine Urobilinogen Ur Leukocyte Esterase Urine RBC Urine WBC Ur Squamous Epith Cells Urine Bacteria Ur Microscopic Review Urine Culture Comments Urine HCG, Qual PD MEDICAL DECISION MAKING - ED course ED course: 30-year-old woman presents with vaginal bleeding in the first trimester with small subchorionic hemorrhage on ultrasound. Blood type is B+ according to blood bank after speaking on the phone. I discussed with patient her increased white blood cell count, the rest of her results including her ultrasound and recommended pelvic rest and DIE DESIGNER APPRENTICE follow-up. Return precautions given. Departure - Departure Disposition: Home, Self Care Clinical Impression: Vaginal bleeding affecting early Condition: Good Instructions: ED Miscarriage Poss Comments: You were seen in the emergency department for possible miscarriage. We will need to continue monitoring your and you should practice pelvic rest as we discussed until you follow-up with your DIE DESIGNER APPRENTICE this week for repeat hcg. Your hcg today was 76,985. Return to the emergency department immediately if you have any new or worsening symptoms or other concerns. INFO FROM [facility]: after miscarriage: What you need to know after miscarriage can be stressful and confusing. When is the best time to get ? What are the odds of miscarrying again? Get the facts about after miscarriage. By [facility] Staff Thinking about after miscarriage? You might be anxious or confused about what caused your miscarriage and when to conceive again. Here's help understanding after miscarriage, and the steps you can take to promote a healthy . What causes miscarriage? Miscarriage is the spontaneous loss of a before the 20th week. Many miscarriages occur because the fetus isn't developing normally. Problems with the baby's chromosomes are responsible for about 50 percent of early loss. Most of these chromosome problems occur by chance as the embryo divides and grows, although it becomes more common as women age. Sometimes a health condition, such as poorly controlled diabetes or a uterine problem, might lead to miscarriage. Often, however, the cause of miscarriage isn't known. About 8 to 20 percent of known pregnancies end in miscarriage. The total number of actual miscarriages is probably higher because many women miscarry before they even know that they're . What are the odds of another miscarriage? Miscarriage is usually a one-time occurrence. Most women who miscarry go on to have healthy pregnancies after miscarriage. A small number of women 1 percent will have repeated miscarriages. The predicted risk of miscarriage in a future remains about 20 percent after one miscarriage. After two consecutive miscarriages the risk of another miscarriage increases to about 28 percent, and after three or more consecutive miscarriages the risk of another miscarriage is about 43 percent. When is the best time for after miscarriage? Miscarriage can cause intense feelings of loss. You and your partner might also experience sadness, anxiety or guilt. Don't murphy the grieving process. Typically, sex isn't recommended for two weeks after a miscarriage to prevent an infection. You can ovulate and become as soon as two weeks after a miscarriage. Once you feel emotionally and physically ready for after miscarriage, ask your health care provider for guidance. After one miscarriage, there might be no need to wait to conceive. After two or more miscarriages, your health care provider might recommend testing. Are special tests recommended before attempting after miscarriage? If you experience two or more consecutive miscarriages, your health care provider might recommend testing to identify any underlying causes before you attempt to get again. For example: * Blood tests. A sample of your blood is evaluated to help detect problems with hormones or your immune system. * Chromosomal tests. You and your partner might both have your blood tested to determine if your chromosomes are a factor. Tissue from the miscarriage if it's available also might be tested. Procedures can also be done to detect uterine problems. For example: * Ultrasound. This imaging method uses high-frequency sound waves to produce precise images of structures within your body. Your health care provider places the ultrasound device over your abdomen or places it inside your vagina to obtain images of your uterus. An ultrasound might identify uterine problems, such as fibroids within the uterine cavity. * Hysteroscopy. Your health care provider inserts a thin, lighted instrument called a hysteroscope through your cervix into your uterus to diagnose and treat identified intrauterine problems. * Hysterosalpingography. Your health care provider threads a thin tube through your vagina and cervix to release a liquid contrast dye into your uterus and fallopian tubes. The dye traces the shape of your uterine cavity and fallopian tubes and makes them visible on X-ray images. This procedure provides information about the internal contours of your uterus and any obstructions in the fallopian tubes. * Sonohysterography. This ultrasound scan is done after saline is injected into the hollow part of your uterus though your vagina and cervix. This procedure provides information about the inside of your uterus, the outer surface of the uterus and any obstructions in the fallopian tubes. * Magnetic resonance imaging (MRI). This imaging test uses a magnetic field and radio waves to create detailed images of your uterus. If the cause of your miscarriages can't be identified, don't lose hope. Most women who experience repeated miscarriages are likely to eventually have healthy pregnancies. Is there anything that can be done to improve the chances of a healthy ? Often, there's nothing you can do to prevent a miscarriage. However, making healthy lifestyle choices is important for you and your baby. Take a daily vitamin or folic acid supplement, ideally beginning a few months before conception. During , limit caffeine and avoid drinking alcohol, smoking and using illicit drugs. What emotions are likely during subsequent pregnancies? Once you become again after miscarriage, you'll likely feel joyful as well as anxious. While becoming again can be a healing experience, anxiety and depression could continue even after the of a healthy child. Talk about your feelings and allow yourself to experience them fully. Turn to your partner, family and friends for comfort. If you're having trouble coping, consult your health care provider or a counselor for extra support. Forms: Activity restrictions
[2021-05-01 02:22] VITALS: BP 118/64
--- NOTE | 2021-05-01 09:02 | Ultrasound Report ---
PROCEDURE: OB First Trimester w/TV INDICATIONS: vag bleeding OUTSIDE/PRIOR DATING DATA: Last menstrual period (LMP): 03/04/2021. LMP-based estimated date of delivery (ESTHER): 12/09/2021. First dating scan (date and location): 04/22/2021. Estimated date of delivery (ESTHER) from first dating scan: 12/15/2021. The below data below was generated using the ultrasound ESTHER of 12/15/2021 TECHNIQUE: Real-time scanning was performed of the fetus and maternal pelvic organs, with image documentation. Endovaginal scanning was also performed to better visualize the fetus and maternal ovaries. COMPARISON: 04/12/2021, 04/20/2021 FINDINGS: Embryo: There is an intrauterine gestational sac seen, with a pole present, which measures 0.3 cm, which corresponds to an estimated gestational age of 6 weeks 6 days. cardiac activity is s een, with a measured heart rate of 141 bpm. Mild perigestational/subchorionic hemorrhage can be seen, which measures 1.3 x 0.7 x 0.5 cm. Measurement variability in dating: +/- 4 weeks by LMP, +/- 7 days by mean sac diameter (use before 6 weeks gestation if crown-rump length not able to be measured), +/- 5 days by crown-rump length (6-12 weeks gestation). Maternal organs: Ovaries are within normal limits, with a likely right ovarian corpus luteum measuri ng up to 1.4 cm. Small simple appearing cysts can be seen involving the left ovary. IMPRESSION: Single live intrauterine . A small amount of subchorionic hemorrhage can be seen. Note: No significant discrepancy from the preliminary report. Reviewed by: Kristian Obrien MD on 05/01/2021 8:01 AM MIKAEL Approved by: Kristian Obrien MD on 05/01/2021 8:01 AM MIKAEL Station ID: [id number]
== END 2021-05-01 02:21 | disposition home or self-care (01) ==
LOC: ED 21:49
DX: O46.8X1 Other antepartum hemorrhage, first trimester (principal); O99.331 Smoking (tobacco) complicating pregnancy, first trimester; Z3A.01 Less than 8 weeks gestation of pregnancy
CPT/HCPCS: 36415; 80053; 81001; 81003; 81025; 83690; 84702; 85025; 86850; 86870; 86900; 86901; 87086; 99284

== ENCOUNTER 2021-05-15 20:59 | Emergency (ER) | payer MEDICAID ==
[2021-05-15 21:20] LABS: BASOPHILS % (AUTO) 0.3 %; EOSINOPHILS # (AUTO) 0.1 10^3/uL (0.0-0.7); EOSINOPHILS % (AUTO) 0.5 %; HCT - HEMATOCRIT 40.1 % (37.0-47.0); HGB - HEMOGLOBIN 13.6 g/dL (12.0-16.0); LYMPHOCYTES # (AUTO) 1.8 10^3/uL (1.5-3.5); LYMPHOCYTES % (AUTO) 15.2 %; MEAN CORPUSCULAR HEMOGLOBIN 30.6 pg (27.0-31.0); MEAN CORPUSCULAR HGB CONC 33.9 g/dL (32.0-36.0); MEAN CORPUSCULAR VOLUME 90.3 fL (81.0-99.0); MEAN PLATELET VOLUME 9.2 fL (7.9-10.8); MONOCYTES # (AUTO) 0.8 10^3/uL (0.0-1.0); MONOCYTES % (AUTO) 6.7 %; NEUTROPHILS # (AUTO) 8.9 10^3/uL (1.5-6.6); NEUTROPHILS % (AUTO) 76.7 %; PLT - PLATELET COUNT 330 10^3/uL (130-450); RED BLOOD COUNT 4.44 10^6/uL (4.20-5.40); RED CELL DISTRIBUTION WIDTH 12.2 % (12.0-15.0); WHITE BLOOD COUNT 11.6 x10^3/uL (4.8-10.8)
[2021-05-15 21:31] LABS: BILIRUBIN,URINE NEGATIVE (NEGATIVE); GLUCOSE, URINE (UA) NEGATIVE (NEGATIVE); KETONES,URINE (UA) NEGATIVE (NEGATIVE); LEUKOCYTE ESTERASE, URINE NEGATIVE (NEGATIVE); NITRITE,URINE NEGATIVE (NEGATIVE); OCCULT BLOOD,URINE NEGATIVE (NEGATIVE); PH,URINE 6.5 PH (5.0-7.5); PROTEIN,URINE NEGATIVE (NEGATIVE); UROBILINOGEN,URINE 0.2 (NORMAL) E.U./dL (NORMAL)
--- NOTE | 2021-05-15 21:32 | ED Physician Documentation ---
History of Present Illness - Stated complaint Stated Complaint: SPOTTING, CRAMPS - Chief complaint Chief Complaint: Abd Pain - History obtained from History obtained from: Patient - Additonal information Additional information: 30-year-old LMP 03/06 presents with bilateral lower quadrant abdominal pain and vaginal spotting starting an hour prior to arrival. also states she had an anxiety attack and is still feeling anxious. She had spotting 2 weeks ago and was found to have a small subchorionic hemorrhage transvaginal ultrasound. Followed up with a nurse at her nurse juvenile counselor's office in [place], but has not yet seen a doctor. denies fever, back pain, urinary sx. Blood type B+ Review of Systems Ten Systems: 10 systems reviewed and negative Constitutional: denies: Fever, Chills GI: reports: Abdominal Pain, Nausea : reports: Vaginal bleeding. denies: Dysuria PD PAST MEDICAL HISTORY - Past Medical History Cardiovascular: None Respiratory: Asthma Neuro: Migraines Endocrine/Autoimmune: None GI: Ulcers, Ulcerative colitis, Other DECORATION CHECKER: None : Other HEENT: None Psych: Depression, Anxiety Musculoskeletal: Osteoarthritis, Other Derm: None - Past Surgical History Past Surgical History: Yes /DECORATION CHECKER: section - Present Medications Home Medications: Ambulatory Orders Medication Instructions Recorded Confirmed Docusate Sodium 100Mg Capsule 100 mg PO DAILY #20 capsule 10/06/20 05/15/21 [Colace 100Mg Capsule] No122/Iron/Folic Acid 1 tab PO DAILY 05/15/21 05/15/21 [ Multi Tablet] - Allergies Allergies/Adverse Reactions: Allergies Allergy/AdvReac Type Severity Reaction Status Date / Time amoxicillin Allergy Unknown Verified 05/15/21 21:07 Penicillins Allergy Hives Verified 05/15/21 21:07 - Social History Does the pt smoke?: Yes Smoking Status: Current every day smoker Does the pt drink ETOH?: No Does the pt have substance abuse?: No - Immunizations Immunizations are current?: Yes - POLST Patient has POLST: No PD ED PE NORMAL - Vitals Vital signs reviewed: Yes - General General: Alert and oriented X 3, No acute distress, Well developed/nourished - HEENT HEENT: Atraumatic, PERRL, EOMI - Neck Neck: Supple, no meningeal sign - Cardiac Cardiac: RRR - Respiratory Respiratory: No respiratory distress, Clear bilaterally - Abdomen Abdomen: Non tender, Non distended - Back Back: No CVA TTP - Derm Derm: Normal color, Warm and dry - Extremities Extremities: No deformity - Neuro Neuro: Alert and oriented X 3 - Psych Psych: Normal mood, Normal affect Results - Vitals Vitals: Vital Signs - 24 hr 05/15/21 21:02 Temperature 36.6 C Heart Rate 113 H Respiratory 18 Rate Blood Pressure 137/86 H O2 Saturation 100 Oxygen O2 Source Room air - Labs Labs: Laboratory Tests 05/15/21 05/15/21 05/15/21 21:10 21:15 21:15 WBC 11.6 H RBC 4.44 Hgb 13.6 Hct 40.1 MCV 90.3 MCH 30.6 MCHC 33.9 RDW 12.2 Plt Count 330 MPV 9.2 Neut # (Auto) 8.9 H Lymph # (Auto) 1.8 [place] # (Auto) 0.8 Eos # (Auto) 0.1 Baso # (Auto) 0.0 Absolute Nucleated RBC 0.00 Nucleated RBC % 0.0 Sodium 141 Potassium 3.8 Chloride 106 Carbon Dioxide 25 Anion Gap 10.0 BUN 10 Creatinine 0.6 Estimated GFR (MDRD) 116 Glucose 107 H Calcium 9.4 Total Bilirubin 0.7 AST 48 H ALT 79 H Alkaline Phosphatase 58 Total Protein 7.6 Albumin 3.8 Globulin 3.8 Albumin/Globulin Ratio 1.0 Lipase 30 HCG, Quant Urine Color YELLOW Urine Clarity CLEAR Urine pH 6.5 Ur Specific [place] 1.025 Urine Protein NEGATIVE Urine Glucose (UA) NEGATIVE Urine Ketones NEGATIVE Urine Occult Blood NEGATIVE Urine Nitrite NEGATIVE Urine Bilirubin NEGATIVE Urine Urobilinogen 0.2 (NORMAL) Ur Leukocyte Esterase NEGATIVE Ur Microscopic Review NOT INDICATED Urine Culture Comments NOT INDICATED 05/15/21 21:15 WBC RBC Hgb Hct MCV MCH MCHC RDW Plt Count MPV Neut # (Auto) Lymph # (Auto) [place] # (Auto) Eos # (Auto) Baso # (Auto) Absolute Nucleated RBC Nucleated RBC % Sodium Potassium Chloride Carbon Dioxide Anion Gap BUN Creatinine Estimated GFR (MDRD) Glucose Calcium Total Bilirubin AST ALT Alkaline Phosphatase Total Protein Albumin Globulin Albumin/Globulin Ratio Lipase HCG, Quant 365797.00 Urine Color Urine Clarity Urine pH Ur Specific [place] Urine Protein Urine Glucose (UA) Urine Ketones Urine Occult Blood Urine Nitrite Urine Bilirubin Urine Urobilinogen Ur Leukocyte Esterase Ur Microscopic Review Urine Culture Comments PD MEDICAL DECISION MAKING - ED course ED course: 30yF currently 10wga c/by subchorionic hemorrhage, p/w 2nd episode of vaginal spotting occurring this . Will eval HCG and transvag u/s. Patient requested antianxiety medication. offered benadryl and she accepted. Departure - Departure Disposition: 01 Home, Self Care Clinical Impression: Vaginal bleeding affecting early , Subchorionic hematoma Condition: Good Instructions: Bleeding Early Preg Follow-Up: Tressa Lynn MD [Provider Admit Priv/Credential] - Comments: You were seen in the emergency department for reevaluation of vaginal spotting. Your hCG is trending upward appropriately (hCG 161,895 today.) We still see a small amount of bleeding (subchorionic hematoma) in the uterus that is likely the cause for the spotting. As we discussed, there is a very small increase in your liver function tests (AST/ALT 48/79). Nothing needs to be done about this for now except for repeat bloodwork to trend. If you have severe right upper quadrant pain then please return to the emergency department immediately. Otherwse, please follow up with your nurse juvenile counselor in regards to these findings. If they recommend you transfer care, I am enclosing a referral to Dr. [place] Please return to the emergency department you have any new or worsening symptoms or other concerns.
[2021-05-15 21:34] LABS: CLARITY,URINE CLEAR (CLEAR)
[2021-05-15 21:35] LABS: ALBUMIN 3.8 g/dL (3.2-5.5); BILIRUBIN,TOTAL 0.7 mg/dL (0.2-1.0); CALCIUM 9.4 mg/dL (8.5-10.3); CREATININE 0.6 mg/dL (0.4-1.0); POTASSIUM 3.8 mmol/L (3.5-5.0); TOTAL PROTEIN 7.6 g/dL (6.7-8.2)
[2021-05-15] MEDS ORDERED: diphenhydrAMINE 25 MG CAPSULE PO STA ×2 (21:56→21:57)
[2021-05-15 22:49] VITALS: BP 121/87
--- NOTE | 2021-05-16 08:12 | Ultrasound Report ---
PROCEDURE: OB First Trimester w/TV INDICATIONS: 10wga bleeding OUTSIDE/PRIOR DATING DATA: Last menstrual period (LMP): 03/04/2021. LMP-based estimated date of delivery (ESTHER): 12/09/2021. First dating scan (date and location): 04/22/2021. Estimated date of delivery (ESTHER) from first dating scan: 12/15/2021. The below data below was generated using the ultrasound ESTHER of 12/15/2021 TECHNIQUE: Real-time scanning was performed of the fetus and maternal pelvic organs, with image documentation. Endovaginal scanning was also performed to better visualize the fetus and maternal ovaries. COMPARISON: 04/30/2021, 04/20/2021, 04/12/2021 FINDINGS: Embryo: There is an intrauterine gestational sac seen, with a pole present, which measures 2.7 cm, which corresponds to an estimated gestational age of 9 weeks 3 days. cardiac activity is s een, with a measured heart rate of 169 bpm. There is perigestational/subchorionic hemorrhage, which measures 3.1 x 0.5 x 1.3 cm. Measurement variability in dating: +/- 4 weeks by LMP, +/- 7 days by mean sac diameter (use before 6 weeks gestation if crown-rump length not able to be measured), +/- 5 days by crown-rump length (6-12 weeks gestation). Maternal organs: Ovaries are unremarkable. The cervix appears closed. IMPRESSION: Subchorionic hemorrhage can be seen. Single live intrauterine . Normal interval growth compared to the prior ultrasound examination. Note: No significant discrepancy from the preliminary report. Reviewed by: Kristian Obrien MD on 05/16/2021 7:11 AM MIKAEL Approved by: Kristian Obrien MD on 05/16/2021 7:11 AM MIKAEL Station ID: [id number]
== END 2021-05-15 22:49 | disposition home or self-care (01) ==
LOC: ED 20:59
DX: O20.9 Hemorrhage in early pregnancy, unspecified (principal); O41.8X10 Other specified disorders of amniotic fluid and membranes, first trimester, not applicable or unspecified; O99.331 Smoking (tobacco) complicating pregnancy, first trimester; F17.200 Nicotine dependence, unspecified, uncomplicated; Z3A.09 9 weeks gestation of pregnancy
CPT/HCPCS: 36415; 76801; 76817; 80053; 81003; 83690; 84702; 85025; 99284; A9270; 81001; 87086

== ENCOUNTER 2021-06-07 09:34 | Emergency (ER) | payer MEDICAID ==
[2021-06-07 11:04] LABS: BASOPHILS % (AUTO) 0.2 %; EOSINOPHILS # (AUTO) 0.1 10^3/uL (0.0-0.7); EOSINOPHILS % (AUTO) 0.5 %; HCT - HEMATOCRIT 41.1 % (37.0-47.0); HGB - HEMOGLOBIN 13.8 g/dL (12.0-16.0); LYMPHOCYTES # (AUTO) 1.6 10^3/uL (1.5-3.5); LYMPHOCYTES % (AUTO) 15.1 %; MEAN CORPUSCULAR HEMOGLOBIN 30.4 pg (27.0-31.0); MEAN CORPUSCULAR HGB CONC 33.6 g/dL (32.0-36.0); MEAN CORPUSCULAR VOLUME 90.5 fL (81.0-99.0); MEAN PLATELET VOLUME 9.5 fL (7.9-10.8); MONOCYTES # (AUTO) 0.7 10^3/uL (0.0-1.0); MONOCYTES % (AUTO) 6.1 %; NEUTROPHILS # (AUTO) 8.4 10^3/uL (1.5-6.6); NEUTROPHILS % (AUTO) 77.6 %; PLT - PLATELET COUNT 263 10^3/uL (130-450); RED BLOOD COUNT 4.54 10^6/uL (4.20-5.40); RED CELL DISTRIBUTION WIDTH 12.6 % (12.0-15.0); WHITE BLOOD COUNT 10.8 x10^3/uL (4.8-10.8)
[2021-06-07 11:17] LABS: ALBUMIN 3.3 g/dL (3.2-5.5); ALBUMIN/GLOBULIN RATIO 0.9 (1.0-2.2); BILIRUBIN,TOTAL 0.8 mg/dL (0.2-1.0); CALCIUM 9.2 mg/dL (8.5-10.3); CREATININE 0.6 mg/dL (0.4-1.0); TOTAL PROTEIN 7.1 g/dL (6.7-8.2)
[2021-06-07] MEDS ORDERED: METOCLOPRAMIDE 10 MG TABLET PO STA (13:33)
--- NOTE | 2021-06-07 13:36 | ED Physician Documentation ---
PD HPI FEMALE - Stated complaint Stated Complaint: BLEEDING/NAUSEA - Chief complaint Chief Complaint: Abd Pain - History obtained from History obtained from: Patient - Additional information Additional information: Patient comes emergency department chief complaint of vaginal bleeding for the last 2 days. She is approximately 13 weeks and first noticed the bleeding when she sneezed. She states she thought she had wet her pants but when she went to the bathroom she realized she had put out a little blood. Patient states that this has been happening on and off for the last couple of days since. She states that earlier in her first trimester, she was diagnosed with a subchorionic hemorrhage which has been making its way out, but had stopped bleeding for a while and so patient is not sure if it is due to the subchorionic hemorrhage or something else. She does also admit to having intercourse in the last week. Patient denies pain. No feeling of contractions. No dysuria. No fevers or chills. She has been steadily nauseated throughout her first semester and is out of her nausea medication. She also states that her migraines are bothering her. No other complaints at this time. Review of Systems Ten Systems: 10 systems reviewed and negative Constitutional: reports: Reviewed and negative Eyes: reports: Reviewed and negative Ears: reports: Reviewed and negative Nose: reports: Reviewed and negative Throat: reports: Reviewed and negative Cardiac: reports: Reviewed and negative Respiratory: reports: Reviewed and negative GI: reports: Reviewed and negative : reports: Vaginal bleeding, Now EGA Skin: reports: Reviewed and negative Musculoskeletal: reports: Reviewed and negative Neurologic: reports: Headache Psychiatric: reports: Reviewed and negative Endocrine: reports: Reviewed and negative Immunocompromised: reports: Reviewed and negative PD PAST MEDICAL HISTORY - Past Medical History Past Medical History: Yes Cardiovascular: None Respiratory: Asthma Neuro: Migraines Endocrine/Autoimmune: None GI: Ulcers, Ulcerative colitis, 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 : Other HEENT: None Psych: Depression, Anxiety Musculoskeletal: Osteoarthritis, Other Derm: None - Past Surgical History Past Surgical History: Yes /REGIONAL SALES DIRECTOR: section - Present Medications Home Medications: Ambulatory Orders Medication Instructions Recorded Confirmed Docusate Sodium 100Mg Capsule 100 mg PO DAILY #20 capsule 10/06/20 05/15/21 [Colace 100Mg Capsule] No122/Iron/Folic Acid 1 tab PO DAILY 05/15/21 05/15/21 [ Multi Tablet] Metoclopramide [Reglan] 10 mg PO Q6H PRN #20 tablet 06/07/21 - Allergies Allergies/Adverse Reactions: Allergies Allergy/AdvReac Type Severity Reaction Status Date / Time amoxicillin Allergy Unknown Verified 06/07/21 10:17 Penicillins Allergy Hives Verified 06/07/21 10:17 - Social History Does the pt smoke?: Yes Smoking Status: Current every day smoker Does the pt drink ETOH?: No Does the pt have substance abuse?: No - Immunizations Immunizations are current?: Yes - POLST Patient has POLST: No PD ED PE NORMAL - Vitals Vital signs reviewed: Yes - General General: Alert and oriented X 3, No acute distress, Well developed/nourished - HEENT HEENT: Atraumatic, PERRL, EOMI, Moist mucous membranes - Neck Neck: Supple, no meningeal sign - Cardiac Cardiac: RRR, No murmur, Strong equal pulses - Respiratory Respiratory: No respiratory distress, Clear bilaterally - Abdomen Abdomen: Soft, Non tender, Non distended - Derm Derm: Normal color, Warm and dry, No rash - Extremities Extremities: No deformity, No edema - Neuro Neuro: Alert and oriented X 3, 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, Normal speech - Psych Psych: Normal mood, Normal affect Results - Vitals Vitals: Vital Signs - 24 hr 06/07/21 10:15 Temperature 36.0 C L Heart Rate 70 Respiratory 16 Rate Blood Pressure 115/81 H O2 Saturation 100 Oxygen O2 Source Room air - Labs Labs: Laboratory Tests 06/07/21 06/07/21 06/07/21 10:56 10:56 10:56 WBC 10.8 RBC 4.54 Hgb 13.8 Hct 41.1 MCV 90.5 MCH 30.4 MCHC 33.6 RDW 12.6 Plt Count 263 MPV 9.5 Neut # (Auto) 8.4 H Lymph # (Auto) 1.6 [place] # (Auto) 0.7 Eos # (Auto) 0.1 Baso # (Auto) 0.0 Absolute Nucleated RBC 0.00 Nucleated RBC % 0.0 Sodium 138 Potassium 4.0 Chloride 104 Carbon Dioxide 23 Anion Gap 11.0 BUN 7 Creatinine 0.6 Estimated GFR (MDRD) 116 Glucose 84 Calcium 9.2 Total Bilirubin 0.8 AST 18 ALT 22 Alkaline Phosphatase 58 Total Protein 7.1 Albumin 3.3 Globulin 3.8 Albumin/Globulin Ratio 0.9 L Lipase 24 HCG, Quant Blood Type B POSITIVE 06/07/21 10:56 WBC RBC Hgb Hct MCV MCH MCHC RDW Plt Count MPV Neut # (Auto) Lymph # (Auto) [place] # (Auto) Eos # (Auto) Baso # (Auto) Absolute Nucleated RBC Nucleated RBC % Sodium Potassium Chloride Carbon Dioxide Anion Gap BUN Creatinine Estimated GFR (MDRD) Glucose Calcium Total Bilirubin AST ALT Alkaline Phosphatase Total Protein Albumin Globulin Albumin/Globulin Ratio Lipase HCG, Quant 617170.00 Blood Type - Rads (name of study) OB US Radiology: Final report received, See rad report (viable iup) PD MEDICAL DECISION MAKING - ED course Complexity details: reviewed results, re-evaluated patient, considered differential, d/w patient ED course: The patient was worked up with ultrasound of the pelvis found to have an IUP that was viable. She was given a dose of Reglan for her headache and nausea. She was also given a prescription for the same, she states this is made her feel better in both respects before. Patient is advised to follow-up with her OB for further care. Departure - Departure Disposition: Home, Self Care Clinical Impression: Threatened affecting intrauterine Headache Qualifiers: Headache type: unspecified Headache chronicity pattern: acute headache Intractability: not intractable Qualified Code(s): R51.9 - Headache, unspecified Subchorionic hematoma Qualifiers: Fetus number: single or unspecified fetus Trimester: first trimester Qualified Code(s): O41.8X10 - Other specified disorders of amniotic fluid and membranes, first trimester, not applicable or unspecified Condition: Stable Instructions: Bleeding Early Preg Prescriptions: Metoclopramide [Reglan] 10 mg PO Q6H PRN #20 tablet PRN Reason: Nausea / Vomiting Comments: Your hormones are at an appropriate level for your , and your ultrasound looks good. Although whenever you bleed in there is a small chance of miscarriage, it is most likely that your bleeding is either from the cervix or from a small remnant of your subchorionic hematoma. It is not harmful to have intercourse during , but this can sometimes cause a little bleeding from the cervix itself, which is swollen naturally during . This will subside on its own and is not a cause for alarm. At this point in time, your baby is alive and well and all the structures look good. Please follow-up with your OB for further care, as planned.
[2021-06-07 13:53] VITALS: BP 120/76
--- NOTE | 2021-06-07 14:40 | Ultrasound Report ---
PROCEDURE: OB First Trimester w/TV INDICATIONS: preg, vag bleed, est 13 weeks OUTSIDE/PRIOR DATING DATA: Last menstrual period (LMP): 03/04/2021. LMP-based estimated date of delivery (ESTHER): 12/09/2021. First dating scan (date and location): 04/20/2021. Estimated date of delivery (ESTHER) from first dating scan: 12/15/2021. The below data below was generated using the ultrasound derived ESTHER of 12/15/2021 TECHNIQUE: Real-time scanning was performed of the fetus and maternal pelvic organs, with image documentation. Endovaginal scanning was also performed to better visualize the fetus and maternal ovaries. COMPARISON: 05/15/2021, 04/30/2021, 04/20/2021 FINDINGS: Embryo: There is a single intrauterine with a crown-rump length of 6.9 cm corresponding to a calculated gestational age of 13 weeks 1 day. heart motion is identified. There is a small y olk sac. No discrete perigestational hematoma identified. Heart rate: 152 bpm Measurement variability in dating: +/- 4 weeks by LMP, +/- 7 days by mean sac diameter (use before 6 weeks gestation if crown-rump length not able to be measured), +/- 5 days by crown-rump length (6-12 weeks gestation). Maternal organs: There is a right ovarian cyst measuring up to 1.8 x 1.6 x 2.0 cm with peripheral va scularity on color Doppler interrogation compatible with a corpus luteal cyst. Left ovary not visuali zed. IMPRESSION: 1. Single living intrauterine demonstrating appropriate interval growth with calculated ges tational age of 13 weeks 1 day. 2. No perigestational hematoma identified. Reviewed by: Yfn Blackwell MD on 06/07/2021 2:39 PM PDT Approved by: Yfn Blackwell MD on 06/07/2021 2:39 PM PDT Station ID: [id number]
== END 2021-06-07 13:53 | disposition home or self-care (01) ==
LOC: ED 09:34
DX: O20.0 Threatened abortion (principal); O99.891 Other specified diseases and conditions complicating pregnancy; R51.9 Headache, unspecified; R11.0 Nausea; O99.331 Smoking (tobacco) complicating pregnancy, first trimester; F17.200 Nicotine dependence, unspecified, uncomplicated; Z3A.13 13 weeks gestation of pregnancy
CPT/HCPCS: 36415; 76801; 76817; 80053; 83690; 84702; 85025; 86900; 86901; 99284; A9270

== ENCOUNTER 2021-06-18 09:15 | Emergency (ER) | payer MEDICAID ==
[2021-06-18 09:22] VITALS: BP 115/70
--- NOTE | 2021-06-18 09:44 | ED Physician Documentation ---
History of Present Illness - Stated complaint Stated Complaint: BLEEDING - Chief complaint Chief Complaint: General - History obtained from History obtained from: Patient - History of Present Illness Timing: Today Pain level max: 0 Pain level now: 0 - Additonal information Additional information: 30-year-old female presents to the emergency department since he passed a large blood clot last night. She is about 14 weeks and has had a subchorionic hematoma. No further bleeding currently. No abdominal pain. Nothing makes it better or worse. No fevers. No chills. No urinary symptoms. 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 : Other HEENT: None Psych: Depression, Anxiety Musculoskeletal: Osteoarthritis, Other Derm: None - Past Surgical History Past Surgical History: Yes /EGG PROCESSOR: section - Present Medications Home Medications: Ambulatory Orders Medication Instructions Recorded Confirmed Docusate Sodium 100Mg Capsule 100 mg PO DAILY #20 capsule 10/06/20 05/15/21 [Colace 100Mg Capsule] No122/Iron/Folic Acid 1 tab PO DAILY 05/15/21 05/15/21 [ Multi Tablet] Metoclopramide [Reglan] 10 mg PO Q6H PRN #20 tablet 06/07/21 Metoclopramide [Reglan] 10 mg PO Q6H PRN #20 tablet 06/18/21 - Allergies Allergies/Adverse Reactions: Allergies Allergy/AdvReac Type Severity Reaction Status Date / Time amoxicillin Allergy Unknown Verified 06/18/21 09:22 Penicillins Allergy Hives Verified 06/18/21 09:22 - Social History Does the pt smoke?: Yes Smoking Status: Current every day smoker Does the pt drink ETOH?: No Does the pt have substance abuse?: No - Immunizations Immunizations are current?: Yes - POLST Patient has POLST: No PD ED PE NORMAL - Vitals Vital signs reviewed: Yes - General General: Alert and oriented X 3, No acute distress - HEENT HEENT: Moist mucous membranes - Neck Neck: Supple, no meningeal sign - Cardiac Cardiac: RRR - Respiratory Respiratory: No respiratory distress, Clear bilaterally - Abdomen Abdomen: Soft, Non tender, Non distended, Other (gravid) - Derm Derm: Warm and dry - Neuro Neuro: Alert and oriented X 3 - Psych Psych: Normal mood, Normal affect Results - Vitals Vitals: Vital Signs - 24 hr 06/18/21 09:19 Temperature 36.2 C L Heart Rate 90 Respiratory 16 Rate Blood Pressure 115/70 O2 Saturation 95 Oxygen O2 Source Room air PD MEDICAL DECISION MAKING - ED course Complexity details: considered differential, d/w patient ED course: 30-year-old female, 4, para 2. 14 weeks . Bedside ultrasound reveals an IUP that is active with good movement. heart rate 156 bpm. No further evaluation required at this time. Images shown to the patient. Patient counseled regarding signs and symptoms for which I believe and urgent re-evaluation would be necessary. Patient with good understanding of and agreement to plan and is comfortable going home at this time This document was made in part using voice recognition software. While efforts are made to proofread this document, sound alike and grammatical errors may occur. Departure - Departure Disposition: 01 Home, Self Care Clinical Impression: Vaginal bleeding affecting early Condition: Good Instructions: ED Care Follow-Up: CHARLOTTE SERNA MD [Primary Care Provider] - Within 3 Days Prescriptions: Metoclopramide [Reglan] 10 mg PO Q6H PRN #20 tablet PRN Reason: Nausea / Vomiting Comments: Your prescription was sent to [facility] in [place]. Please follow-up with your doctor for further care. Return if you worsen.
== END 2021-06-18 10:33 | disposition home or self-care (01) ==
LOC: ED 09:15
DX: O20.9 Hemorrhage in early pregnancy, unspecified (principal); O99.331 Smoking (tobacco) complicating pregnancy, first trimester; F17.200 Nicotine dependence, unspecified, uncomplicated; Z3A.14 14 weeks gestation of pregnancy
CPT/HCPCS: 99282; 99283

== ENCOUNTER 2021-06-29 10:32 | Emergency (ER) | payer MEDICAID ==
--- NOTE | 2021-06-29 10:45 | ED Physician Documentation ---
PD HPI FEMALE - Stated complaint Stated Complaint: FEMALE - Chief complaint Chief Complaint: General - History obtained from History obtained from: Patient - History of Present Illness Timing - onset: How many days ago (1) Timing - duration: Days (1) Timing - details: Gradual onset, Intermittant (She notes some mild low back and bilateral lower abdominal crampy pains intermittently. Also having a brownish vaginal discharge. Not malodorous. No bleeding per se. Is 16 wks EGA .) Associated symptoms: Vaginal discharge (brownish stringy, denies malodor). No: Fever, Vaginal pain Contributing factors: (16 wks by dates, per patient.). No: Exposed to STD Recently seen: Clinic, Emergency Dept (had vaginal bleeding with clot 06/18 and Dx subchorionic bleed, with follow up few days later at OB, with normal exam. Has been doing okay since without repeat bleeding.) Review of Systems Constitutional: denies: Fever, Chills Nose: denies: Rhinorrhea / runny nose, Congestion Throat: denies: Sore throat Respiratory: denies: Cough GI: reports: Abdominal Pain (intermittent cramping bilateral low abd, inguinal area), Nausea. 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 : Other HEENT: None Psych: Depression, Anxiety Musculoskeletal: Osteoarthritis, Other Derm: None - Past Surgical History Past Surgical History: Yes /MEDIA ARTS PROFESSOR: section - Present Medications Home Medications: Ambulatory Orders Medication Instructions Recorded Confirmed Docusate Sodium 100Mg Capsule 100 mg PO DAILY #20 capsule 10/06/20 06/29/21 [Colace 100Mg Capsule] No122/Iron/Folic Acid 1 tab PO DAILY 05/15/21 06/29/21 [ Multi Tablet] Metoclopramide [Reglan] 10 mg PO Q6H PRN #20 tablet 06/18/21 06/29/21 Metoclopramide [Reglan] 10 mg PO Q6H PRN #20 tablet 06/29/21 - Allergies Allergies/Adverse Reactions: Allergies Allergy/AdvReac Type Severity Reaction Status Date / Time amoxicillin Allergy Unknown Verified 06/29/21 10:34 Penicillins Allergy Hives Verified 06/29/21 10:34 - Social History Does the pt smoke?: Yes Smoking Status: Current every day smoker Does the pt drink ETOH?: No Does the pt have substance abuse?: No - Immunizations Immunizations are current?: Yes - POLST Patient has POLST: No PD ED PE NORMAL - Vitals Vital signs reviewed: Yes - General General: Alert and oriented X 3, No acute distress, Well developed/nourished - Cardiac Cardiac: RRR, No murmur - Respiratory Respiratory: Clear bilaterally - Abdomen Abdomen: Normal bowel sounds, Soft, Non distended, No organomegaly, Other (gravid with utuerus felt lower abd. Bedside U/S showing IUP with active movements, good FHR. ) - Female Female : Deferred - Back Back: No CVA TTP Results - Vitals Vitals: Vital Signs - 24 hr 06/29/21 10:35 Temperature 36.1 C L Heart Rate 84 Respiratory 18 Rate Blood Pressure 114/67 O2 Saturation 100 Oxygen O2 Source Room air - Labs Labs: Laboratory Tests 06/29/21 11:12 Urine Color YELLOW Urine Clarity SL. CLOUDY Urine pH 6.0 Ur Specific [place] <=1.005 Urine Protein NEGATIVE Urine Glucose (UA) NEGATIVE Urine Ketones NEGATIVE Urine Occult Blood MODERATE H Urine Nitrite NEGATIVE Urine Bilirubin NEGATIVE Urine Urobilinogen 0.2 (NORMAL) Ur Leukocyte Esterase NEGATIVE Ur Microscopic Review INDICATED Urine Culture Comments Not Reportable Departure - Departure Disposition: 01 Home, Self Care Clinical Impression: Vaginal discharge Qualifiers: Weeks of gestation: 16 weeks Qualified Code(s): Z3A.16 - 16 weeks gestation of Condition: Stable Record reviewed to determine appropriate education?: Yes Prescriptions: Metoclopramide [Reglan] 10 mg PO Q6H PRN #20 tablet PRN Reason: Nausea / Vomiting Comments: Your urine test appears normal. The vaginitis screen test will result later tod ay or tomorrow. We will call you if there is any signs of bacterial infection. At this point stay well hydrated. Use Tylenol every 4-6 hours if needed for pains. Continue your Reglan if needed for nausea. Follow-up with [facility]. Return if worse symptoms. I transmitted script to [facility].
[2021-06-29] MEDS ORDERED: METOCLOPRAMIDE 10 MG TABLET PO STA (11:01)
[2021-06-29 11:48] LABS: BILIRUBIN,URINE NEGATIVE (NEGATIVE); GLUCOSE, URINE (UA) NEGATIVE (NEGATIVE); KETONES,URINE (UA) NEGATIVE (NEGATIVE); LEUKOCYTE ESTERASE, URINE NEGATIVE (NEGATIVE); NITRITE,URINE NEGATIVE (NEGATIVE); OCCULT BLOOD,URINE MODERATE (NEGATIVE); PROTEIN,URINE NEGATIVE (NEGATIVE); UROBILINOGEN,URINE 0.2 (NORMAL) E.U./dL (NORMAL)
[2021-06-29 11:59] LABS: CLARITY,URINE SL. CLOUDY (CLEAR)
[2021-06-29 12:19] LABS: BACTERIA,URINE Moderate /HPF (None Seen); SQUAMOUS EPITHELIAL CELL,UR MANY Squamous (<= Few); WBC,URINE 0-3 /HPF (0-5)
[2021-06-29 12:27] VITALS: BP 116/74
[2021-06-29 13:32] LABS: BACTERIAL VAGINOSIS DNA NEGATIVE (NEGATIVE); CANDIDA GLABRATA DNA NEGATIVE (NEGATIVE); CANDIDA GROUP DNA POSITIVE (NEGATIVE); CANDIDA KRUSEI DNA NEGATIVE (NEGATIVE); TRICHOMONAS VAGINALIS DNA NEGATIVE (NEGATIVE)
[2021-06-29 16:53] LABS: CHLAMYDIA TRACHOMATIS DNA NEGATIVE (NEGATIVE); NEISSERIA GONORRHOEAE DNA NEGATIVE (NEGATIVE); TRICHOMONAS VAGINALIS DNA NEGATIVE (NEGATIVE)
== END 2021-06-29 12:27 | disposition home or self-care (01) ==
LOC: ED 10:32
DX: O99.891 Other specified diseases and conditions complicating pregnancy (principal); N89.8 Other specified noninflammatory disorders of vagina; Z3A.16 16 weeks gestation of pregnancy; O99.332 Smoking (tobacco) complicating pregnancy, second trimester; F17.200 Nicotine dependence, unspecified, uncomplicated
CPT/HCPCS: 81001; 87481; 87491; 87591; 87661; 87801; 99283; 99284; A9270; 81003; 87086

== ENCOUNTER 2021-07-16 21:04 | Outpatient (CLI) | payer MEDICAID ==
--- NOTE | 2021-07-17 09:48 | Ultrasound Report ---
PROCEDURE: OB Detailed Eval INDICATIONS: SUPERVISION OF NORMAL OUTSIDE/PRIOR DATING DATA: Last menstrual period (LMP): 03/04/2021. LMP-based estimated date of delivery (ESTHER): 12/09/2021. First dating scan (date and location): 04/22/2021. Estimated date of delivery (ESTHER) from first dating scan: 12/15/2020. The below data below was generated using the ultrasound ESTHER of 12/15/2020 TECHNIQUE: Real-time scanning was performed of the fetus, with image documentation and biometric measurements. COMPARISON: Numerous priors, including 06/07/2021, 05/15/2021, 04/30/2021, 04/20/2021, 04/11/2021 FINDINGS: General: A single live intrauterine gestation is present. Presentation: Breech Placenta: Placental position is fundal, without previa. Amniotic fluid index: 10.5 cm, within normal limits for gestational age. heart rate: 145 beats per minute. Maternal cervical canal: 4.5 cm long; normal length is 2.5 cm or more. biometrics: Biparietal diameter: 4.3 cm equals 19 weeks 1 day Head circumference: 15.9 cm equals 18 weeks 5 days Abdominal circumference: 14 cm equals 19 weeks 2 days Femur length: 3.2 cm equals 20 weeks 0 days Estimated gestational age from initial scan: 18 weeks 2 days Composite gestational age from present scan: 19 weeks 1 day Estimated weight and percentile: 300 g, 98th percentile Measurement variability in biometric dating: +/- 10 days from 12-20 weeks gestation, +/- 2 weeks from 20-30 weeks gestation, +/- 3 weeks at 30 weeks gestation or later. Anatomic survey: Neuro: Ventricles are normal at less than 10 mm. Cisterna magna is normal at 3-11 mm. Cerebellum i s normal in size and morphology. Nuchal skin fold: Normal at less than 6 mm between 14 and 20 weeks gestational age. Face: Nose and lips, facial profile are normal. Spine: Not well seen. Heart: 4-chambered heart is present, with normal ventricular outflow tracts. Diaphragm: Diaphragm is intact. Stomach: Left-sided stomach is present. Kidneys: No hydronephrosis. Normal is less than 5 mm in 2nd trimester, less than 7 mm in 3rd trimester. Cord: 3 vessel cord is seen. Its insertion to the placenta is not seen. Bladder: Normal in size. Extremities: All 4 extremities are visualized. This study is limited by body habitus. IMPRESSION: No anatomic abnormality is identified, although the spine is not well seen. Normal interval growth compared to the prior ultrasound examination. The fetus is at the 98th percentile for estimated weight. Please correlate with future development of macrosomia. The cord insertion into the placenta is not well seen. Reviewed by: Kristian Obrien MD on 07/17/2021 8:46 AM [facility] Approved by: Kristian Obrien MD on 07/17/2021 8:46 AM [facility] Station ID: [id number]
== END 2021-07-16 21:05 | disposition home or self-care (01) ==
LOC: DI 21:04
PROVIDERS: ATTEND Obstetrics & Gynecology
DX: Z34.00 Encounter for supervision of normal first pregnancy, unspecified trimester (principal); Z36.89 Encounter for other specified antenatal screening

== ENCOUNTER 2021-08-21 19:31 | Outpatient (CLI) | payer MEDICAID ==
--- NOTE | 2021-08-22 12:36 | Ultrasound Report ---
PROCEDURE: OB F/U or Repeat INDICATIONS: SUPERVISION OF NORMAL OUTSIDE/PRIOR DATING DATA: Last menstrual period (LMP): 03/04/2021. LMP-based estimated date of delivery (ESTHER): 12/09/2021. First dating scan (date and location): 04/22/2021. Estimated date of delivery (ESTHER) from first dating scan: 12/15/2021. The below data below was generated using the ultrasound ESTHER of 12/15/2021 TECHNIQUE: Real-time scanning was performed of the fetus, with image documentation. COMPARISON: Several priors, including 07/16/2021, 06/07/2021, 05/15/2021. FINDINGS: General: A single live intrauterine gestation is present. Presentation: Vertex Placenta: Placental position is fundal, without previa. Amniotic fluid index: 21.1 cm, which is at the limits of normal for gestational age. Largest pocket of fluid: 6.7 cm heart rate: 164 beats per minute. Maternal cervical canal: 4.5 cm long; normal length is 2.5 cm or more. The cervix appears closed. Other: The spine appears within normal limits. There is a normal-appearing three-vessel cord, w ith a normal appearing insertion. This study is limited by body habitus. IMPRESSION: The NIESHA is 21.1, which is at the upper limits of normal for gestational age. A 3 vessel cord, with a normal appearing insertion is now seen. The spine appears normal on these images. Reviewed by: Kristian Obrien MD on 08/22/2021 11:34 AM SHANNA[facility] Approved by: Kristian Obrien MD on 08/22/2021 11:34 AM [facility] Station ID: [id number]
== END 2021-08-21 19:32 | disposition home or self-care (01) ==
LOC: DI 19:31
PROVIDERS: ATTEND Obstetrics & Gynecology
DX: Z34.00 Encounter for supervision of normal first pregnancy, unspecified trimester (principal)

== ENCOUNTER 2021-09-09 09:33 | Outpatient (CLI) | payer MEDICAID ==
[2021-09-09 09:49] VITALS: BP 113/65
--- NOTE | 2021-09-09 10:20 | PROVIDER PROGRESS NOTE ---
- HPI Chief Complaint: Pain, non-labor Current : Vital Signs Temperature 98.6 F 09/09/21 09:46 Heart Rate 95 09/09/21 09:46 Respiratory Rate 24 09/09/21 09:46 Blood Pressure 113/65 09/09/21 09:46 O2 Saturation 99 09/09/21 09:46 Temperature 98.6 F 09/09/21 09:46 Heart Rate 95 09/09/21 09:46 Respiratory Rate 24 09/09/21 09:46 Blood Pressure 113/65 09/09/21 09:46 O2 Saturation 99 09/09/21 09:46 Patient is a 30-year-old -0-1-2 at 27 weeks 0 days gestation presenting today for abdominal pain. Last night around 1830 she had a sharp right sided abdominal pain. She tried taking a bath and Tylenol, but this was still uncomfortable sleep. Sleeping on her right side makes this worse. She does say occasionally she has a cramping pain in her lower left side in the same distribution from her hip to her groin and inguinal canal distribution. No feve r or chills. Has chronic constipation with 2-3 bowel movements per week. Last bowel movement was this morning. No burning with urination. No flank pain. Past medical history: Chronic constipation Family history Denies pertinent history section x2 Past surgical history: Social history: Former smoker. No alcohol or drugs. Allergies: Penicillin, amoxicillin Medications: vitamins, Reglan Obstetrical history 1.12/06/2010, 40 weeks, section 2. 04/18/2014, 40 weeks, section 3. Spontaneous miscarriage - Exam Physical exam Constitutional: alert, no acute distress, well hydrated, well developed, well nourished, appropriate dress. Skin: normal turgor, normal color. Head: atraumatic, normocephalic. Cardiovascular: RRR. Respiratory: no respiratory distress. Abdomen: nondistended, nontender. No guarding or rebound. Back: No CVA tenderness bilaterally Spine: normal mobility. Neurologic: normal, sensation intact, motor intact. Psych: affect and mood appropriate, normal interaction, good eye contact. - Procedures OB Procedure Performed: NST Diagnosis/Indication for NST: Other (Abdominal pain.) NST Procedure: NST: 145 beats per baseline, moderate variability, accelerations present, no decelerations. Bier: Quiescent NST Procedure Start Date 09/09/21 Start Time 09:44 Stop Time 10:10 Vibroacoustic Stimulation Used No Patient States Movement Yes - Plan Plan: 30-year-old G4, P2012 at 27 weeks 0 gestation with abdominal pain 1. Abdominal pain: Likely round ligament pain given the bilateral distribution, however worse on right than left. Discussed warm baths, Tylenol. Has taken a lower dose of Tylenol, but educated she can take 2 extra strength Tylenol every 6-8 hours. Has an appointment next week. Advised to call if pain worsens or something changes. 2. Chronic constipation: Advised patient to start fiber supplementation increase dietary fiber. Can try MiraLAX if constipation becomes worse.
== END 2021-09-09 10:15 | disposition home or self-care (01) ==
LOC: WFO 09:33 → FBP 09:36 → WFO 10:15
PROVIDERS: ATTEND Obstetrics & Gynecology
DX: O99.891 Other specified diseases and conditions complicating pregnancy (principal); R10.9 Unspecified abdominal pain; O99.612 Diseases of the digestive system complicating pregnancy, second trimester; K59.09 Other constipation; Z3A.27 27 weeks gestation of pregnancy; Z87.891 Personal history of nicotine dependence; Z34.90 Encounter for supervision of normal pregnancy, unspecified, unspecified trimester; Z36.89 Encounter for other specified antenatal screening
CPT/HCPCS: 36415; 59025; 82947; 82950; 85027; 86850; 86870; 86880; 99213

== ENCOUNTER 2021-09-09 10:21 | Outpatient (CLI) | payer MEDICAID ==
[2021-09-09 12:18] LABS: RED BLOOD COUNT 4.1 10^6/uL (4.20-5.40); WHITE BLOOD COUNT 11.1 x10^3/uL (4.8-10.8)
[2021-09-09 12:19] LABS: HCT - HEMATOCRIT 37.1 % (37.0-47.0); HGB - HEMOGLOBIN 12.2 g/dL (12.0-16.0); MEAN CORPUSCULAR HEMOGLOBIN 29.8 pg (27.0-31.0); MEAN CORPUSCULAR HGB CONC 32.9 g/dL (32.0-36.0); MEAN CORPUSCULAR VOLUME 90.5 fL (81.0-99.0); MEAN PLATELET VOLUME 9.4 fL (7.9-10.8); RED CELL DISTRIBUTION WIDTH 14.3 % (12.0-15.0)
== END 2021-09-09 10:22 | disposition home or self-care (01) ==
LOC: LAB 10:21
PROVIDERS: ATTEND Obstetrics & Gynecology
DX: Z34.90 Encounter for supervision of normal pregnancy, unspecified, unspecified trimester (principal); Z36.89 Encounter for other specified antenatal screening
CPT/HCPCS: 36415; 82947; 82950; 85027; 86850; 86870; 86880

== ENCOUNTER 2021-09-16 09:53 | Outpatient (CLI) | payer MEDICAID ==
[2021-09-16 10:40] LABS: GTT GLUCOSE,FASTING 88 mg/dL (70-100)
== END 2021-09-16 09:54 | disposition home or self-care (01) ==
LOC: LAB 09:53
PROVIDERS: ATTEND Obstetrics & Gynecology
DX: O99.810 Abnormal glucose complicating pregnancy (principal)
CPT/HCPCS: 36415; 82951; 82952

== ENCOUNTER 2021-09-21 15:30 | Outpatient (CLI) | payer MEDICAID ==
[2021-09-21 16:06] VITALS: BP 124/75
[2021-09-21 16:25] LABS: RUPTURE OF MEMBRANES PLUS NEGATIVE (NEGATIVE)
[2021-09-21 17:58] LABS: BACTERIAL VAGINOSIS DNA POSITIVE (NEGATIVE); CANDIDA GLABRATA DNA NEGATIVE (NEGATIVE); CANDIDA GROUP DNA NEGATIVE (NEGATIVE); CANDIDA KRUSEI DNA NEGATIVE (NEGATIVE); TRICHOMONAS VAGINALIS DNA NEGATIVE (NEGATIVE)
--- NOTE | 2021-09-21 19:38 | Ultrasound Report ---
PROCEDURE: OB Limited INDICATIONS: premature rupture of membranes assessment OUTSIDE/PRIOR DATING DATA: Last menstrual period (LMP): 03/04/2021. LMP-based estimated date of delivery (ESTHER): 12/09/2021. First dating scan (date and location): 04/22/2021. Estimated date of delivery (ESTHER) from first dating scan: 12/15/2021. The below data below was generated using the ultrasound ESTHER of 12/15/2021 TECHNIQUE: Real-time scanning was performed of the fetus, with image documentation. Endovaginal scanning: Performed COMPARISON: None. FINDINGS: A single living intrauterine gestation is present. Presentation: Transverse with head to maternal left Placenta: Placental position is fundal, without previa. Amniotic fluid index: 17.8 cm, normal 5-24 cm. Largest pocket measures 5.6 cm. heart rate: 133 beats per minutes. Maternal cervical canal: Closed and 4.5 cm long; normal length is 2.5 cm or more. Estimated gestational age from initial scan: 27 weeks 6 days. IMPRESSION: 1. Single living intrauterine . 2. Maternal cervix closed and measuring 4.5 cm in length. 3. Normal amniotic fluid index. Reviewed by: Penny Scruggs MD, PhD on 09/21/2021 7:37 PM PST Approved by: Penny Scruggs MD, PhD on 09/21/2021 7:37 PM PST Station ID: [id number]
[2021-09-21 22:03] LABS: CHLAMYDIA TRACHOMATIS DNA NEGATIVE (NEGATIVE); NEISSERIA GONORRHOEAE DNA NEGATIVE (NEGATIVE); TRICHOMONAS VAGINALIS DNA NEGATIVE (NEGATIVE)
--- NOTE | 2021-09-23 08:59 | PROVIDER PROGRESS NOTE ---
- HPI Chief Complaint: Leakage of vaginal fluid Current : Current EDU 12/15/21 Gestation 27 Weeks and 6 Days 4 Para 2 Vital Signs Temperature 98.4 F 09/21/21 15:31 Heart Rate 90 09/21/21 15:31 Respiratory Rate 18 09/21/21 15:31 Blood Pressure 124/75 09/21/21 15:31 Temperature 98.4 F 09/21/21 15:31 Heart Rate 90 09/21/21 15:31 Respiratory Rate 18 09/21/21 15:31 Blood Pressure 124/75 09/21/21 15:31 O2 Saturation - Procedures OB Procedure Performed: NST Diagnosis/Indication for NST: labor NST Procedure: NST Procedure Start Date 09/21/21 Start Time 15:35 Stop Time 16:10 Vibroacoustic Stimulation Used No Patient States Movement Yes EFM 135 mod tierra 15x15 accels no decels TOCO: quiet Service Date of procedure: 09/21/21 - Plan Plan: Patient is a patient is a 30-year-old -0-1-2 at 28 weeks 6 days gestation who presents today with concern for loss of fluid per vagina and pelvic pressure. Patient called into clinic this am and reports that she passed about 1/4 cup of cloudly fluid per vagina and has continued slow leakage Also has pelvic pressure. Several hours later, she presented to triage via EMS. No acitve passage of fluid at present. Did have IC this am. No VB or CTX. Continues to report right sided flank pain for which she had been seen in triage one week ago. Past medical history: Chronic constipation Family history Denies pertinent history section x2 Past surgical history: Social history: Former smoker. No alcohol or drugs. Allergies: Penicillin, amoxicillin Medications: vitamins, Reglan Obstetrical history 1.12/06/2010, 40 weeks, section 2. 04/18/2014, 40 weeks, section 3. Spontaneous miscarriage ROS: As per HPI, otherwise remaining systems are negative PE: VS: 124/75 98.4 90 GEN: NAD HEAD: NCAT EYES: No scleral icterus or conjunctival injection CV: RRR RESP: CTAB, normal effort ABD: gravid, S&NT/ND BACK: no CVA tenderness, area of mild TTP in low back, lateral to sacrum bilaterally PSYCH: appropriate affect NEURO: alert and oriented, normal gait and coordination EXT: WWP Neg pooling ROM+ neg Nitrazine neg GCCT neg Vaginitis panel positive for BV Formal us shows TVCL closed and 4.5 cm NIESHA 17.8 position: TV FFN not performed given recency of IC A/P: 31 yo at 28+6 wga here for rule out rupture Neg FFN and normal NIESHA combined wiht neg nitrazine and pooling does not support PPROM No CTX on monitor and TVCL 4.5 cm reassuring for lack of labor Likely attributed to recent IC. Cat I tracing, meets criteria despite early gestational age Warning signs reviewed FU with routine OB care DX: IUP at 28+6 wga False labor DOS: 09/21/21 NST read: 09/21/21
== END 2021-09-21 20:02 | disposition home or self-care (01) ==
LOC: FBP 15:30 → WFO 15:30
PROVIDERS: ATTEND Obstetrics & Gynecology
DX: O47.03 False labor before 37 completed weeks of gestation, third trimester (principal); Z3A.28 28 weeks gestation of pregnancy; Z87.891 Personal history of nicotine dependence
CPT/HCPCS: 59025; 82731; 84112; 87491; 87591; 87661; 87797; 87801; 99214; 99215

== ENCOUNTER 2021-10-04 09:25 | Outpatient (CLI) | payer MEDICAID ==
--- NOTE | 2021-10-04 11:37 | PROVIDER PROGRESS NOTE ---
- HPI Chief Complaint: Headache Current : Vital Signs Temperature 98.6 F 10/04/21 09:42 Heart Rate 101 H 10/04/21 09:42 Respiratory Rate 16 10/04/21 09:42 Blood Pressure 93/61 10/04/21 09:42 Temperature 98.6 F 10/04/21 09:42 Heart Rate 101 H 10/04/21 09:42 Respiratory Rate 16 10/04/21 09:42 Blood Pressure 106/70 10/04/21 10:10 O2 Saturation - Procedures OB Procedure Performed: NST NST Procedure: NST: 145 beats per baseline, moderate variability, accelerations present, no decelerations. [place]: Quiescent Service Date of procedure: 10/04/21 (Read 10/04/2021) - Plan Plan: Patient is a 31-year-old -0-1-2 at 30 weeks 4 days gestation presenting to triage for left hand swelling she also complains that her legs are swelling. And her right hand, although her left hand is the worst. This wakes her up from sleeping due to the pain. It is uncomfortable to close her car door with her left hand. Worse while sleeping and while grasping. She also complains of a headache, although this is been an ongoing issue for her. She has good movement, no leaking, no vaginal bleeding. She denies headache, right upper quadrant pain, changes in vision. Past medical history Chronic constipation Past surgical history section x2 Family history No pertinent history Social history Denies tobacco, alcohol, drugs. Was a former smoker. Physical Constitutional: alert, no acute distress, well hydrated, well developed, well nourished, appropriate dress. Skin: normal turgor, normal color. Head: atraumatic, normocephalic. Cardiovascular: RRR. Respiratory: no respiratory distress. Abdomen: nondistended, nontender. Spine: normal mobility. Neurologic: normal, sensation intact, motor intact. Psych: affect and mood appropriate, normal interaction, good eye contact. Extremities: Minimal swelling in feet. Minimal to moderate swelling in bilateral hands, although less swelling than in pictures. Positive Tinel's sign. No tenderness to palpation of the bones, no joint pain in left hand or wrist. Assessment and plan 31-year-old -0-1-2 at 30 weeks 4 days gestation with left hand swelling 1. Left hand swelling: No significant pain to palpation. As she is having swelling in all 4 extremities, although not to a severe level, we discussed symptomatic management with compression stockings for her legs and try a wrap versus carpal tunnel splint for her hand. She says she is likely not able to afford this at this time. -Arm brace given to patient. Prescription sent for other arm. 2. Extremity swelling: -CBC, CMP, urine protein creatinine ratio unremarkable. -Discussed that this level of swelling is likely not concerning for preeclampsia. Blood pressure today is 93/61. Labs are without abnormality. Very unlikely to be an issue with preeclampsia. 3. Bacterial vaginosis -PRescription sent for metronidazole.
[2021-10-04 12:00] LABS: HCT - HEMATOCRIT 36.7 % (37.0-47.0); HGB - HEMOGLOBIN 12.3 g/dL (12.0-16.0); MEAN CORPUSCULAR HEMOGLOBIN 29.9 pg (27.0-31.0); MEAN CORPUSCULAR HGB CONC 33.5 g/dL (32.0-36.0); MEAN CORPUSCULAR VOLUME 89.3 fL (81.0-99.0); MEAN PLATELET VOLUME 9.4 fL (7.9-10.8); RED BLOOD COUNT 4.11 10^6/uL (4.20-5.40); RED CELL DISTRIBUTION WIDTH 14.6 % (12.0-15.0); WHITE BLOOD COUNT 9.4 x10^3/uL (4.8-10.8)
[2021-10-04 12:12] LABS: ALBUMIN 2.8 g/dL (3.2-5.5); ALBUMIN/GLOBULIN RATIO 0.7 (1.0-2.2); BILIRUBIN,TOTAL 0.9 mg/dL (0.2-1.0); CREATININE 0.6 mg/dL (0.4-1.0); POTASSIUM 4.1 mmol/L (3.5-5.0); TOTAL PROTEIN 6.8 g/dL (6.7-8.2)
[2021-10-04 12:39] LABS: CREATININE,URINE 194.7 mg/dL; PROTEIN/CREATININE RATIO,URINE 0.1 (<=0.2)
[2021-10-04 17:12] VITALS: BP 96/67
== END 2021-10-04 13:30 | disposition home or self-care (01) ==
LOC: WFO 09:25 → FBP 09:28 → WFO 13:30
PROVIDERS: ATTEND Obstetrics & Gynecology
DX: O99.891 Other specified diseases and conditions complicating pregnancy (principal); M79.89 Other specified soft tissue disorders; R51.9 Headache, unspecified; O23.593 Infection of other part of genital tract in pregnancy, third trimester; Z3A.30 30 weeks gestation of pregnancy; Z87.891 Personal history of nicotine dependence
CPT/HCPCS: 36415; 59025; 80053; 82570; 84156; 85027; 99213; 99215

== ENCOUNTER 2021-10-08 19:55 | Outpatient (CLI) | payer MEDICAID ==
--- NOTE | 2021-10-08 23:36 | Ultrasound Report ---
PROCEDURE: OB F/U or Repeat INDICATIONS: SUPERVISION NORMAL OUTSIDE/PRIOR DATING DATA: Last menstrual period (LMP): 03/04/2021. LMP-based estimated date of delivery (ESTHER): 12/09/2021. First dating scan (date and location): 04/22/2021. Estimated date of delivery (ESTHER) from first dating scan: 12/15/2021. The below data below was generated using the sonographic ESTHER of 12/15/2021 TECHNIQUE: Real-time scanning was performed of the fetus, with image documentation and biometric measurements. Endovaginal scanning: Not performed COMPARISON: 09/21/2021 FINDINGS: General: A single living intrauterine gestation is present. Presentation: Oblique with head down towards the maternal left Placenta: Placental position is fundal, without previa. Amniotic fluid index: 22.6 cm, between the 50th and 95th percentile for gestational age. Largest ve rtical pocket measures 7.5 cm. heart rate: 155 beats per minute. Maternal cervical canal: 4.1 cm long; normal length is 2.5 cm or more. biometrics: Biparietal diameter: 7.9 cm, correlating with 31 weeks and 6 days Head circumference: 29.3 cm, correlating with 32 weeks and 3 days Abdominal circumference: 28.25 cm, correlating with 32 weeks and 2 days Femur length: 6.5 cm, correlating with 33 weeks and 3 days Estimated gestational age from initial scan: 30 weeks and 2 days. Composite gestational age from present scan: 32 weeks and 4 days Estimated weight and percentile: 2010 g which correlates with the 97th percentile based off ges tational age. Measurement variability in biometric dating: +/- 10 days from 12-20 weeks gestation, +/- 2 weeks from 20-30 weeks gestation, +/- 3 weeks at 30 weeks gestation or more. Other: Maternal ovaries are unremarkable. Limited evaluation of the spine due to positioning. Limited evaluation of anatomy i s otherwise unremarkable. IMPRESSION: 1. Single living intrauterine gestation with estimated sonographic gestational age of approximately 3 2 weeks and 4 days versus 30 weeks and 2 days by initial dating. Dating remains concordant. 2. Four-quadrant NIESHA measuring 22.6 cm which correlates between the 50th and 95th percentile for gest ational age. 3. Estimated weight of approximately 2010 g which correlates with the 97th percentile based off gestational age. Reviewed by: Foreign Covarrubias MD on 10/08/2021 11:34 PM PST Approved by: Foreign Covarrubias MD on 10/08/2021 11:34 PM PST Station ID: [id number]
== END 2021-10-08 19:56 | disposition home or self-care (01) ==
LOC: DI 19:55
PROVIDERS: ATTEND Obstetrics & Gynecology
DX: O36.63X0 Maternal care for excessive fetal growth, third trimester, not applicable or unspecified (principal); O99.213 Obesity complicating pregnancy, third trimester; Z3A.32 32 weeks gestation of pregnancy

== ENCOUNTER 2021-10-15 10:54 | Outpatient (CLI) | payer MEDICAID | END 2021-10-15 10:55 | disposition critical access hospital (66) | LOC: EMS 10:54 | DX: O60.03 Preterm labor without delivery, third trimester (principal); Z3A.32 32 weeks gestation of pregnancy | CPT/HCPCS: A0425; A0429; A0999 ==

== ENCOUNTER 2021-10-15 11:23 | Outpatient (CLI) | payer MEDICAID ==
[2021-10-15 11:50] VITALS: BP 123/69
[2021-10-15 12:20] LABS: RUPTURE OF MEMBRANES PLUS NEGATIVE (NEGATIVE)
--- NOTE | 2021-10-15 13:13 | PROVIDER PROGRESS NOTE ---
- HPI Chief Complaint: Leakage of vaginal fluid Current : Current EDU 12/09/21 Gestation 32 Weeks and 1 Days 3 Para 2 Vital Signs Temperature 98.6 F 10/15/21 11:32 Heart Rate 80 10/15/21 11:32 Respiratory Rate 20 10/15/21 11:32 Blood Pressure 123/69 10/15/21 11:32 Temperature 98.6 F 10/15/21 11:32 Heart Rate 80 10/15/21 11:32 Respiratory Rate 20 10/15/21 11:32 Blood Pressure 123/69 10/15/21 11:32 O2 Saturation - Procedures OB Procedure Performed: NST Diagnosis/Indication for NST: Other (Abnormal antibody screen.) NST Procedure: NST Procedure Start Date 10/15/21 Start Time 11:24 Stop Time 11:54 Vibroacoustic Stimulation Used No Patient States Movement Yes: Decreased Date read: 10/15/2021 Date performed: 10/15/2021 FHT: 140 beats minute baseline, moderate variability, accelerations present, no decelerations. [place]: occasional - Plan Plan: Patient is a 31-year-old -0-1-2 at 32 weeks 1 day gestation presenting to triage for leaking of fluid. She also complains of nausea and vomiting x1 day. 2 episodes yesterday and 4 episodes today. She is also had intermittent diarrhea x2 days. No other sick contacts. No fever or chills. She has good movement. No vaginal bleeding. No headache, change in vision, right upper quadrant pain. Past medical history Chronic constipation Past surgical history section x2 Family history No pertinent history Social history Denies tobacco, alcohol, drugs. Was a former smoker. Physical exam Physical Constitutional: alert, no acute distress, well hydrated, well developed, well nourished, appropriate dress. Skin: normal turgor, normal color. Head: atraumatic, normocephalic. Cardiovascular: RRR. Respiratory: no respiratory distress. Abdomen: nondistended, nontender. Spine: normal mobility. Neurologic: normal, sensation intact, motor intact. Psych: affect and mood appropriate, normal interaction, good eye contact. SVE: 0/0/-3 [employer] present for exam. Laboratory: ROM plus negative UA specific gravity >1.03 Assessment and plan 31-year-old -0-1-2 at 32 weeks 1 day gestation leaking fluid 1. Rupture of membranes ruled out -ROM plus negative -Likely due to nausea and vomiting increasing pressure and urinary leaking. 2. Gastroenteritis -Patient with nausea, vomiting, diarrhea for 2 days. Encouraged symptomatic relief at this time. Can use home metoclopramide, will also send new prescription for ondansetron -loperamide as needed. -Concentrated urine, but tolerating PO liquid throughout visit. Encouraged increase hydration and frequent drinks. 3. Antibody titer abnormal -Patient getting twice a week NST BPP's. Missed her appointment last night, so had NST and BPP today. -BPP 8/ and reactive NST for total of 07/04 -Most recent titers normal 4. False labor -Contractions irregular and no cervical change noted after greater than two hours
--- NOTE | 2021-10-15 13:38 | Ultrasound Report ---
PROCEDURE: OB Biophysical Profile INDICATIONS: contractions, decreased movement OUTSIDE/PRIOR DATING DATA: Last menstrual period (LMP): 03/04/2021. LMP-based estimated date of delivery (ESTHER): . First dating scan (date and location): 04/22/2021. Estimated date of delivery (ESTHER) from first dating scan: 12/15/2021. The below data below was generated using the ultrasound derived ESTHER of 12/15/2021 TECHNIQUE: Real-time scanning was performed of the fetus, with image documentation and biometric gwendolyn surements. Biophysical profile was also obtained. COMPARISON: 10/08/2021, 09/21/2021, 08/21/2021, 07/16/2021, 06/07/2021.. FINDINGS: General: A single living intrauterine gestation is present. Presentation: Vertex Placenta: Placental position is posterior, without previa. Amniotic fluid index: 19.4 cm, within normal limits for gestational age. Largest pocket measures 5.8 cm heart rate: 133 beats per minute. Maternal cervical canal: 3.4 cm long; normal length is 2.5 cm or more. Estimated gestational age from initial scan: 31 weeks 2 days Biophysical profile: Tone: 2 points. Movement: 2 points. Respiration: 2 points. Largest pocket of fluid: 2 points. (5.8 cm) Umbilical artery Doppler: Systolic/diastolic ratios of 2.09 placenta, 2.71 mid cord, and 2.94 at the abdomen. IMPRESSION: 1. Single living intrauterine demonstrated in vertex position. 2. Amniotic fluid index within normal limits. 3. Biophysical profile score of 8/8. 4. Umbilical artery Doppler within normal limits with preserved diastolic flow demonstrated. Reviewed by: Yfn Blackwell MD on 10/15/2021 1:36 PM PST Approved by: Yfn Blackwell MD on 10/15/2021 1:36 PM PST Station ID: [id number]
[2021-10-15 14:22] LABS: GLUCOSE, URINE (UA) NEGATIVE (NEGATIVE); KETONES,URINE (UA) >=80 mg/dL (NEGATIVE); LEUKOCYTE ESTERASE, URINE NEGATIVE (NEGATIVE); NITRITE,URINE NEGATIVE (NEGATIVE); OCCULT BLOOD,URINE NEGATIVE (NEGATIVE); PROTEIN,URINE TRACE mg/dL (NEGATIVE); UROBILINOGEN,URINE 0.2 (NORMAL) E.U./dL (NORMAL)
[2021-10-15 14:27] LABS: CLARITY,URINE CLEAR (CLEAR)
[2021-10-15 14:28] LABS: BILIRUBIN,URINE SMALL (NEGATIVE); ICTOTEST,URINE POSITIVE
[2021-10-15 14:37] LABS: BACTERIA,URINE Rare /HPF (None Seen); RBC,URINE None Seen /HPF (0-5); SQUAMOUS EPITHELIAL CELL,UR MANY Squamous (<= Few); WBC,URINE 0-3 /HPF (0-5)
[2021-10-15 14:38] LABS: CRYSTALS,URINE 3-5 Calcium Oxalate /LPF; MUCUS,URINE Marked Strands
== END 2021-10-15 15:26 | disposition home or self-care (01) ==
LOC: WFO 11:23 → FBP 11:24 → WFO 15:26
PROVIDERS: ATTEND Obstetrics & Gynecology
DX: O47.03 False labor before 37 completed weeks of gestation, third trimester (principal); O99.613 Diseases of the digestive system complicating pregnancy, third trimester; K52.9 Noninfective gastroenteritis and colitis, unspecified; Z3A.32 32 weeks gestation of pregnancy; Z87.891 Personal history of nicotine dependence; Z87.898 Personal history of other specified conditions
CPT/HCPCS: 59025; 81001; 84112; 87086; 99215

== ENCOUNTER 2021-10-28 11:48 | Outpatient (CLI) | payer MEDICAID ==
[2021-10-28 12:02] VITALS: BP 101/69
[2021-10-28 12:47] LABS: RUPTURE OF MEMBRANES PLUS NEGATIVE (NEGATIVE)
--- NOTE | 2021-10-28 14:16 | PROCEDURE REPORT ---
- HPI Diagnosis/Indication for NST: Other (Abnormal antibody screen) Current EDU 12/09/21 Gestation 34 Weeks and 0 Days 3 Para 2 Vital Signs Temperature 97.9 F 10/28/21 12:00 Heart Rate 93 10/28/21 12:00 Respiratory Rate 10/28/21 12:00 Blood Pressure 101/69 10/28/21 12:00 O2 Saturation 99 10/28/21 12:00 Temperature 97.9 F 10/28/21 12:14 Heart Rate 93 10/28/21 12:00 Respiratory Rate 10/28/21 12:00 Blood Pressure 101/69 10/28/21 12:00 O2 Saturation 99 10/28/21 12:00 - NST Procedure NST Procedure Start Date 10/28/21 Start Time 12:00 Stop Time 12:45 Vibroacoustic Stimulation Used No Patient States Movement Yes
--- NOTE | 2021-10-28 14:51 | PROVIDER PROGRESS NOTE ---
- HPI Chief Complaint: Leakage of vaginal fluid Current : Current EDU 12/09/21 Gestation 34 Weeks and 0 Days 3 Para 2 Vital Signs Temperature 97.9 F 10/28/21 12:00 Heart Rate 93 10/28/21 12:00 Respiratory Rate 10/28/21 12:00 Blood Pressure 101/69 10/28/21 12:00 O2 Saturation 99 10/28/21 12:00 Temperature 97.9 F 10/28/21 12:14 Heart Rate 93 10/28/21 12:00 Respiratory Rate 10/28/21 12:00 Blood Pressure 101/69 10/28/21 12:00 O2 Saturation 99 10/28/21 12:00 - Procedures OB Procedure Performed: NST NST Procedure: NST Procedure Start Date 10/28/21 Start Time 12:00 Stop Time 12:45 Vibroacoustic Stimulation Used No Patient States Movement Yes Service Date of procedure: 10/28/21 (Read 10/28/21) Procedure Details: FHT: 130 beats per baseline, moderate [place], accelerations present, no decelerations [place]: Quiescent - Plan Plan: Patient is a 31-year-old -0-1-2 at 34 weeks 0 days gestation presenting to triage for leaking fluid. She has good movement, no vaginal bleeding. She denies headache, right upper quadrant pain, changes in vision. Past medical history Chronic constant Past surgical history Previous low transverse x10 Family history Denies pertinent history Social history Denies tobacco, alcohol, drug Physical Exam: Constitutional: alert, no acute distress, well hydrated, well developed, well nourished, appropriate dress. Skin: normal turgor, normal color. Cardiovascular: RRR. Respiratory: Gravid,, nontender. Psych: affect and mood appropriate, normal interaction, good eye contact. Labs: ROM plus negative Assessment and plan 31-year-old -0-1-2 at 34 weeks 0 days gestation leaking fluid 1. Rule out rupture of membranes ROM plus negative Likely due to continued urinary leaking. Discharge with labor cautions. 2. Antibody screen abnormal Titers have been normal Continue biweekly NST/BPP 3.34 weeks gestation 4. Previous low transverse section x2
== END 2021-10-28 13:00 | disposition home or self-care (01) ==
LOC: WFO 11:48 → FBP 11:57 → WFO 13:00
PROVIDERS: ATTEND Obstetrics & Gynecology
DX: O34.211 Maternal care for low transverse scar from previous cesarean delivery (principal); O28.9 Unspecified abnormal findings on antenatal screening of mother; Z3A.34 34 weeks gestation of pregnancy
CPT/HCPCS: 59025; 84112; 99213

== ENCOUNTER 2021-11-03 15:58 | Outpatient (CLI) | payer MEDICAID | END 2021-11-03 15:59 | disposition critical access hospital (66) | LOC: EMS 15:58 | DX: O60.03 Preterm labor without delivery, third trimester (principal) | CPT/HCPCS: A0425; A0429 ==

== ENCOUNTER 2021-11-03 16:27 | Outpatient (CLI) | payer MEDICAID ==
[2021-11-03 16:51] VITALS: BP 120/73
[2021-11-03 16:58] LABS: BILIRUBIN,URINE NEGATIVE (NEGATIVE); GLUCOSE, URINE (UA) NEGATIVE (NEGATIVE); KETONES,URINE (UA) 15 mg/dL (NEGATIVE); LEUKOCYTE ESTERASE, URINE NEGATIVE (NEGATIVE); NITRITE,URINE NEGATIVE (NEGATIVE); OCCULT BLOOD,URINE NEGATIVE (NEGATIVE); PH,URINE 6.5 PH (5.0-7.5); PROTEIN,URINE TRACE mg/dL (NEGATIVE); UROBILINOGEN,URINE 0.2 (NORMAL) E.U./dL (NORMAL)
[2021-11-03 17:08] LABS: BACTERIA,URINE None Seen /HPF (None Seen); CLARITY,URINE SL. CLOUDY (CLEAR); MUCUS,URINE Few Strands; RBC,URINE 0-5 /HPF (0-5); SQUAMOUS EPITHELIAL CELL,UR MANY Squamous (<= Few); WBC,URINE 0-3 /HPF (0-5)
--- NOTE | 2021-11-03 17:15 | PROVIDER PROGRESS NOTE ---
- HPI Chief Complaint: Other (Patient presents with complaints of leakage of fluid which she noted at 6 AM today. She reports a large gush and she was soaked with fluid. She denies vaginal bleeding. She notes positive movement.) Current : Vital Signs Temperature 96.8 F L 11/03/21 16:43 Heart Rate 96 11/03/21 16:43 Respiratory Rate 18 11/03/21 16:43 Blood Pressure 120/73 11/03/21 16:43 Temperature 96.8 F L 11/03/21 16:43 Heart Rate 96 11/03/21 16:43 Respiratory Rate 18 11/03/21 16:43 Blood Pressure 120/73 11/03/21 16:43 O2 Saturation - Exam Abdomen- soft, nontender Sterile speculum examcervix visibly closed, thin, white, physiologic discharge noted. No vaginal bleeding, no pooling. - Procedures OB Procedure Performed: NST NST Procedure: NST Procedure Start Time 12:00 Stop Time 12:45 heart rate baseline-140 beats per minutes Moderate variability Accelerations present Decelerations none Contractions rare NST reactive and reassuring Service Date of procedure: 11/03/21 - Plan Plan: 31-year-old G3, P2 at 34 weeks gestation who presents with complaints of leakage of fluid. #Leakage of fluidsterile speculum exam with no visible fluid noted. AmniSure done. Wet mount sent. UA negative. #History of previous section x2no contractions noted on monitor. Wet prep positive for bacterial vaginosis. AmniSure negative. Patient stable for discharge her labor precautions. Flagyl Rx sent.
[2021-11-03 18:03] LABS: RUPTURE OF MEMBRANES PLUS NEGATIVE (NEGATIVE)
== END 2021-11-03 18:30 | disposition home or self-care (01) ==
LOC: WFO 16:27 → FBP 16:37 → WFO 18:30
PROVIDERS: ATTEND Obstetrics & Gynecology
DX: O23.593 Infection of other part of genital tract in pregnancy, third trimester (principal); N76.0 Acute vaginitis; O34.219 Maternal care for unspecified type scar from previous cesarean delivery; Z3A.34 34 weeks gestation of pregnancy
CPT/HCPCS: 59025; 81001; 81003; 84112; 87086; 87210; 99213

== ENCOUNTER 2021-11-15 01:11 | Outpatient (CLI) | payer MEDICAID ==
[2021-11-15] MEDS ORDERED: LACTATED RINGERS 500 ML IV ONE (01:37)
[2021-11-15] MEDS ORDERED: LACTATED RINGERS 1,000 ML ONE (01:39)
[2021-11-15 01:57] LABS: BASOPHILS % (AUTO) 0.3 %; EOSINOPHILS # (AUTO) 0.1 10^3/uL (0.0-0.7); EOSINOPHILS % (AUTO) 0.9 %; HCT - HEMATOCRIT 37.1 % (37.0-47.0); HGB - HEMOGLOBIN 12.5 g/dL (12.0-16.0); LYMPHOCYTES # (AUTO) 1.9 10^3/uL (1.5-3.5); LYMPHOCYTES % (AUTO) 18.8 %; MEAN CORPUSCULAR HEMOGLOBIN 29.6 pg (27.0-31.0); MEAN CORPUSCULAR HGB CONC 33.7 g/dL (32.0-36.0); MEAN CORPUSCULAR VOLUME 87.7 fL (81.0-99.0); MEAN PLATELET VOLUME 9.8 fL (7.9-10.8); MONOCYTES # (AUTO) 0.9 10^3/uL (0.0-1.0); MONOCYTES % (AUTO) 8.4 %; NEUTROPHILS # (AUTO) 7.3 10^3/uL (1.5-6.6); NEUTROPHILS % (AUTO) 70.5 %; PLT - PLATELET COUNT 282 10^3/uL (130-450); RED BLOOD COUNT 4.23 10^6/uL (4.20-5.40); RED CELL DISTRIBUTION WIDTH 14.6 % (12.0-15.0); WHITE BLOOD COUNT 10.3 x10^3/uL (4.8-10.8)
[2021-11-15] MEDS ORDERED: LACTATED RINGERS 1,000 ML IV ONE (01:58)
[2021-11-15 02:05] LABS: ALBUMIN 2.5 g/dL (3.2-5.5); ALBUMIN/GLOBULIN RATIO 0.6 (1.0-2.2); BILIRUBIN,TOTAL 0.4 mg/dL (0.2-1.0); CALCIUM 8.3 mg/dL (8.5-10.3); CREATININE 0.5 mg/dL (0.4-1.0); POTASSIUM 3.6 mmol/L (3.5-5.0); TOTAL PROTEIN 6.7 g/dL (6.7-8.2)
--- NOTE | 2021-11-15 02:23 | PROVIDER PROGRESS NOTE ---
- HPI Chief Complaint: Labor Current : Vital Signs Temperature 98.1 F 11/15/21 01:20 Heart Rate 95 11/15/21 01:20 Respiratory Rate 16 11/15/21 01:20 Blood Pressure 113/68 11/15/21 01:20 Temperature 98.1 F 11/15/21 01:20 Heart Rate 95 11/15/21 01:20 Respiratory Rate 16 11/15/21 01:20 Blood Pressure 113/68 11/15/21 01:20 O2 Saturation - Procedures OB Procedure Performed: NST Diagnosis/Indication for NST: labor NST Procedure: NST Procedure 130s, moderate variability, positive 15x15 accelerations, no decelerations [place]: no contractions NST reactive Service Date of procedure: 11/15/21 - Plan Plan: 31yo at 36.4w confirmed by 13w US presenting with pelvic pressure and concern of leaking fluid. Denies vaginal bleeding. Good movement. Recently completed Flagyl course for BV and feels that is improved. complicated by BMI 41, LGA, hx prior CD x2. GEN: NAD CV: Regular rate Resp: Breathing unlabored Abd: nt : External normal SVE: closed/20/-3 Ext: nt NST Reactive ROM NEG 31yo at 36.4w, false labor - NST reactive - Labor precautions reviewed, comfort measures - GBS collected, follow up - Benign labs reviewed, received 1L LR bolus in triage - Follow up with primary OB as scheduled
[2021-11-15 02:49] LABS: RUPTURE OF MEMBRANES PLUS NEGATIVE (NEGATIVE)
[2021-11-15 03:15] VITALS: BP 126/75
== END 2021-11-15 03:05 | disposition home or self-care (01) ==
LOC: WFO 01:11 → FBP 01:13 → WFO 02:05
PROVIDERS: ATTEND Obstetrics & Gynecology
DX: O47.03 False labor before 37 completed weeks of gestation, third trimester (principal); O36.63X0 Maternal care for excessive fetal growth, third trimester, not applicable or unspecified; O34.219 Maternal care for unspecified type scar from previous cesarean delivery; Z3A.36 36 weeks gestation of pregnancy; Z87.42 Personal history of other diseases of the female genital tract
CPT/HCPCS: 36415; 80053; 84112; 85025; 87797; 96360; J7120; 59025; 87081; 99215

== ENCOUNTER 2021-11-18 19:15 | Outpatient (CLI) | payer MEDICAID ==
--- NOTE | 2021-11-18 22:30 | Ultrasound Report ---
PROCEDURE: OB Biophysical Profile INDICATIONS: ANTIBODY TITER ABOVE REFERENCE RANGE OUTSIDE/PRIOR DATING DATA: Last menstrual period (LMP): 03/04/2021. LMP-based estimated date of delivery (ESTHER): 12/09/2021. First dating scan (date and location): 04/22/2021. Estimated date of delivery (ESTHER) from first dating scan: 12/15/2021. The below data below was generated using the ultrasound ESTHER of 12/15/2021 TECHNIQUE: Real-time scanning was performed of the fetus, with image documentation and biometric gwendolyn surements. Biophysical profile was also obtained. Endovaginal scanning: Not performed COMPARISON: 10/15/2021 FINDINGS: General: A single living intrauterine gestation is present. Presentation: Transverse with head to maternal left Placenta: Placental position is anterior and fundal, without previa. Amniotic fluid index: 20.7 cm, within normal limits for gestational age. heart rate: 137 beats per minute. Maternal cervical canal: 3.5 cm long; normal length is 2.5 cm or more. Biophysical profile: Tone: 2 points. Movement: 2 points. Respiration: 0 points. Largest pocket of fluid: 2 points. (6 cm) Umbilical artery Doppler: 2.9, 3.3, 2.8, within normal limits IMPRESSION: 1. Living third trimester intrauterine . 2. Ultrasound biophysical profile is 6/8. 3. Normal umbilical artery Dopplers Reviewed by: Chandana Jon MD on 11/18/2021 10:28 PM PST Approved by: Chandana Jon MD on 11/18/2021 10:28 PM PST Station ID: [id number]
== END 2021-11-18 19:16 | disposition home or self-care (01) ==
LOC: DI 19:15
PROVIDERS: ATTEND Obstetrics & Gynecology
DX: R76.0 Raised antibody titer (principal)

== ENCOUNTER 2021-11-19 16:46 | Outpatient (CLI) | payer MEDICAID ==
--- NOTE | 2021-11-19 18:23 | Ultrasound Report ---
PROCEDURE: OB Biophysical Profile INDICATIONS: ABNORMAL TITER, GLUCOSE TOLERANCE OBESITY LARGE FOR DATES OUTSIDE/PRIOR DATING DATA: Last menstrual period (LMP): March 04, 2021. LMP-based estimated date of delivery (ESTHER): December 09, 2021. First dating scan (date ): April 22, 2021. Estimated date of delivery (ESTHER) from first dating scan: December 15, 2021. TECHNIQUE: Real-time scanning was performed of the fetus, with image documentation and biometric gwendolyn surements. Biophysical profile was also obtained. COMPARISON: November 18, 2021. FINDINGS: General: A single living intrauterine gestation is present. Presentation: Transverse Placenta: Placental position is anterior fundal, without previa. Amniotic fluid index: 22.3 cm, appropriate for gestational age. heart rate: 148 beats per minute. Biophysical profile: Tone: 2 points. Movement: 2 points. Respiration: 2 points. Largest pocket of fluid: 2 points. Umbilical artery Doppler: 2.4-2.9 IMPRESSION: 1.Live single intrauterine gestation as detailed above. Reviewed by: Kevin England MD on 11/19/2021 6:22 PM PST Approved by: Kevin England MD on 11/19/2021 6:22 PM PST Station ID: [id number]
== END 2021-11-19 16:47 | disposition home or self-care (01) ==
LOC: DI 16:46
PROVIDERS: ATTEND Obstetrics & Gynecology
DX: O36.63X0 Maternal care for excessive fetal growth, third trimester, not applicable or unspecified (principal); O99.810 Abnormal glucose complicating pregnancy

== ENCOUNTER 2021-11-20 23:04 | Outpatient (CLI) | payer MEDICAID ==
[2021-11-20] MEDS ORDERED: ONDANSETRON ODT 4 MG TABLET TL PRN (23:58)
[2021-11-21 00:24] LABS: RUPTURE OF MEMBRANES PLUS NEGATIVE (NEGATIVE)
[2021-11-21] MEDS ORDERED: MORPHINE 10 MG/ML VIAL IM STA (01:19)
[2021-11-21] MEDS ORDERED: hydrOXYzine 50 MG/ML VIAL IM STA (01:23)
[2021-11-21 03:59] VITALS: BP 107/72
--- NOTE | 2021-11-23 16:46 | PROCEDURE REPORT ---
- HPI Current EDU 12/09/21 Gestation 37 Weeks and 3 Days 3 Para 2 Vital Signs Temperature 98.1 F 11/20/21 23:20 Heart Rate 122 H 11/20/21 23:20 Respiratory Rate 17 11/20/21 23:20 Blood Pressure 107/72 11/20/21 23:20 Temperature 98.1 F 11/20/21 23:23 Heart Rate 92 11/21/21 01:30 Respiratory Rate 17 11/20/21 23:20 Blood Pressure 107/72 11/20/21 23:20 O2 Saturation - NST Procedure NST Procedure Start Date 11/20/21 Start Time 23:13 Stop Time 02:06 Vibroacoustic Stimulation Used No EFM 140 mod tierra 15x15 accels no decels TOCO: intermittent (square appearing) - Results and Plan Findings/Impression: Patient is a 31 yo at 37+4 wga who presents for labor assessment. Cat I tracing Patient underwent serial SVE which showed no change from 0.5/0.5/-3 over 1 hour. Offered therapeutic rest. Received 5mg Morphine IM x1 and 50mg hydralazine IM x1. Continued EFM with cont Cat I tracing DC to home with warning signs. DOS: 11/21/21 NST read 11/21/21
== END 2021-11-21 02:16 | disposition home or self-care (01) ==
LOC: WFO 23:04 → FBP 23:04 → WFO 11-21 02:16
PROVIDERS: ATTEND Obstetrics & Gynecology
DX: O36.8130 Decreased fetal movements, third trimester, not applicable or unspecified (principal); Z3A.37 37 weeks gestation of pregnancy
CPT/HCPCS: 59025; 84112; 96372; 99215; Q0162

== ENCOUNTER 2021-11-22 14:56 | Outpatient (CLI) | payer MEDICAID ==
[2021-11-22 16:40] VITALS: BP 108/57
--- NOTE | 2021-11-22 17:30 | PROVIDER PROGRESS NOTE ---
- HPI Chief Complaint: Labor Check Current : Vital Signs Temperature 97.8 F 11/22/21 15:06 Heart Rate 92 11/22/21 15:06 Respiratory Rate 28 H 11/22/21 15:06 Blood Pressure 98/64 11/22/21 15:06 O2 Saturation 100 11/22/21 15:06 Temperature 97.8 F 11/22/21 15:06 Heart Rate 95 11/22/21 16:39 Respiratory Rate 24 11/22/21 16:39 Blood Pressure 108/57 L 11/22/21 16:39 O2 Saturation 100 11/22/21 16:39 - Procedures OB Procedure Performed: NST NST Procedure: NST Procedure Start Time 23:13 Stop Time 02:06 Date performed 11/22/2021 Date read: 11/22/2021 - Plan Plan: Patient is a 31-year-old at 37 weeks 4 days gestation presenting to triage for abdominal pain. Belly cramping sterted around 10 AM and has been having painful contractions since. She also started to have diarrhea earlier this morning. She said the contractions started before the diarrhea. She has good movement, no leaking, no vaginal bleeding. She denies headache, right upper quadrant pain, changes in vision. complicated by obesity, LGA, and 2 prior sections. Exam: General: Alert, oriented, no acute distress Abdominal: Gravid, nontender SVE: 0/0/-3, external os fingertip dilation, but cannot pass finger through. NST: 130 beats per baseline, moderate variability, accelerations present, no decelerations. Newcomb: Irregular contractions noted on tocometer, however difficult to visualize due to patient tensing her abdominal muscles. Assessment and plan 31-year-old -0-1-2 at 37 weeks 4 days gestation with false labor. False Labor -Reactive NST, discussed labor precautions. Advised to return if a significant change in frequency or intensity of contractions. 2. Diarrhea --Did take some Imodium earlier with some relief. Encouraged to take this as needed, but is not required. Discussed importance of hydration more than food at this point. Overall has been relatively mild with only a couple episodes. If this worsens she will let us know for further assessment - discussed the diarrhea is likely complicating her abdominal pain from her contractions.
[2021-11-22] MEDS ORDERED: SODIUM CHLORIDE 0.9% 0 ML IV ONE (18:42)
== END 2021-11-22 17:50 | disposition home or self-care (01) ==
LOC: WFO 14:56 → FBP 15:03 → WFO 17:50
PROVIDERS: ATTEND Obstetrics & Gynecology
DX: O47.1 False labor at or after 37 completed weeks of gestation (principal); R19.7 Diarrhea, unspecified; O34.219 Maternal care for unspecified type scar from previous cesarean delivery; Z3A.37 37 weeks gestation of pregnancy
CPT/HCPCS: 59025; 99215

== ENCOUNTER 2021-12-02 08:27 | Inpatient (IN) | payer MEDICAID ==
[2021-12-02] MEDS ORDERED: CELECOXIB 100 MG CAPSULE PO ONE (08:54)
[2021-12-02] MEDS ORDERED: GABAPENTIN 400 MG CAPSULE PO ONE (08:55)
[2021-12-02] MEDS ORDERED: ACETAMINOPHEN 1,000 MG/100 ML 100 ML IV ONE (08:56)
[2021-12-02] MEDS ORDERED: ceFAZolin 2 GM in SODIUM CHLORIDE 0.9% MINIBAG 100 ML IV STA (08:56)
[2021-12-02 09:30] LABS: BASOPHILS % (AUTO) 0.2 %; EOSINOPHILS % (AUTO) 0.4 %; HCT - HEMATOCRIT 38.8 % (37.0-47.0); HGB - HEMOGLOBIN 13.1 g/dL (12.0-16.0); LYMPHOCYTES # (AUTO) 1.3 10^3/uL (1.5-3.5); LYMPHOCYTES % (AUTO) 14.7 %; MEAN CORPUSCULAR HEMOGLOBIN 29.8 pg (27.0-31.0); MEAN CORPUSCULAR HGB CONC 33.8 g/dL (32.0-36.0); MEAN CORPUSCULAR VOLUME 88.2 fL (81.0-99.0); MEAN PLATELET VOLUME 10.4 fL (7.9-10.8); MONOCYTES # (AUTO) 0.8 10^3/uL (0.0-1.0); NEUTROPHILS # (AUTO) 6.8 10^3/uL (1.5-6.6); NEUTROPHILS % (AUTO) 75.2 %; PLT - PLATELET COUNT 249 10^3/uL (130-450); RED CELL DISTRIBUTION WIDTH 14.6 % (12.0-15.0); WHITE BLOOD COUNT 9.1 x10^3/uL (4.8-10.8)
[2021-12-02] MEDS ORDERED: LACTATED RINGERS 1,000 ML IV SCH ×3 (10:00→17:00)
[2021-12-02] MEDS ORDERED: METOCLOPRAMIDE 10 MG/2 ML VIAL IVP PRN (10:16)
[2021-12-02] MEDS ORDERED: ATROPINE ABBOJECT 1 MG/10 ML SYRINGE IVP PRN (10:16)
[2021-12-02] MEDS ORDERED: MORPHINE 2 MG/ML CARPUJECT IVP PRN (10:16)
[2021-12-02] MEDS ORDERED: ePHEDrine 50 MG/ML VIAL IVP PRN (10:16)
[2021-12-02] MEDS ORDERED: NALOXONE 0.4 MG/ML VIAL IVP PRN (10:16)
[2021-12-02] MEDS ORDERED: ONDANSETRON 4 MG/2 ML VIAL IVP PRN (10:16)
[2021-12-02] MEDS ORDERED: HYDROmorphone 0.5 MG/0.5 ML SYRINGE IVP PRN (10:16)
[2021-12-02] MEDS ORDERED: fentaNYL 100 MCG/2 ML VIAL IVP PRN (10:16)
--- NOTE | 2021-12-02 10:16 | ANESTHESIA ---
Pre-Anesthesia VS, & Labs - Diagnosis previous c/s - Procedure repeat c/s Vital Signs: Temp Pulse Resp BP Pulse Ox 36.7 C 12/02/21 08:58 Height: 5 ft 4 in Weight (kg): 109.769 kg Body Mass Index: 41.5 BMI Classification: Morbidly Obese - NPO >8 hours - Is Patient ?: Yes - Lab Results Current Lab Results: Laboratory Tests 12/02/21 09:45: Blood Type B POSITIVE 12/02/21 09:43: POC Whole Bld Glucose 87 12/02/21 09:15: WBC 9.1, RBC 4.40, Hgb 13.1, Hct 38.8, MCV 88.2, MCH 29.8, MCHC 33.8, RDW 14.6, Plt Count 249, MPV 10.4, Neut # (Auto) 6.8 H, Lymph # (Auto) 1.3 L, [place] # (Auto) 0.8, Eos # (Auto) 0.0, Baso # (Auto) 0.0, Absolute Nucleated RBC 0.00, Nucleated RBC % 0.0 Lab results reviewed: Yes Fish Bones: 12/02/21 09:15 Home Medications and Allergies Active Medications Lactated Ringer's (Lr) 1,000 mls @ 0 mls/hr IV .Q0M CARI Last Admin: 12/02/21 09:21 Dose: 30 mls/hr No122/Iron/Folic Acid [ Multi Tablet] 1 tab PO DAILY 05/15/21 Allergies/Adverse Reactions: Allergies Allergy/AdvReac Type Severity Reaction Status Date / Time amoxicillin Allergy Unknown Verified 06/29/21 10:34 cheese Allergy Hives Verified 12/02/21 09:16 Penicillins Allergy Hives Verified 06/29/21 10:34 Ranch Dressing Allergy Hives Verified 12/02/21 09:34 Anes History & Medical History - Anesthetic History Anesthesia Complications: reports: No previous complications Family history of Anesthesia Complications: Denies Family history of Malignant Hyperthermia: Denies - Medical History Cardiovascular: reports: None Pulmonary: reports: Asthma (well controlled, no inhaler) Gastrointestinal: reports: GERD (w/), Ulcers, Ulcerative colitis, Other Urinary: reports: Other Neuro: reports: Migraines Musculoskeletal: reports: Osteoarthritis, Other Endocrine/Autoimmune: reports: None Blood Disorders: reports: Anemia Skin: reports: None Smoking Status: Former smoker - Surgical History Gynecologic: reports: section (SAB x2 for previous c/s butdoesnt remember anything after baby delivered) Exam General: Alert, Oriented x3, Cooperative Dental: WNL Mouth Openin Fingerbreadth Neck Mobility: Normal Mallampati classification: II Thyromental Distance: 4-6 cm Respiratory: Lungs clear, Normal breath sounds, No respiratory distress Cardiovascular: Regular rate Neurological: Normal speech Cognitive Status: Within normal limits Plan Anesthesia Type: Spinal, Transverse Abdominis Plane (TAP) Block Regional Block: Per Surgeon's request for Post Op pain control Consent for Procedure(s) Verified and Reviewed: Yes Code Status: Attempt Resuscitation ASA classification: 2-Mild systemic disease Is this case an emergency?: No
[2021-12-02] MEDS ORDERED: CITRIC ACID/SODIUM CITRATE 15 ML UDC PO ONE (10:47)
[2021-12-02] MEDS ORDERED: SODIUM CHLORIDE 0.9% 10 ML VIAL IVP ONE (11:02)
[2021-12-02] MEDS ORDERED: OXYTOCIN 10 UNIT/ML VIAL ONE (11:02)
[2021-12-02] MEDS ORDERED: ePHEDrine 50 MG/ML VIAL IVP ONE (11:02)
[2021-12-02] MEDS ORDERED: DEXAMETHASONE 4 MG/ML VIAL ONE (11:02)
[2021-12-02] MEDS ORDERED: ONDANSETRON 4 MG/2 ML VIAL ONE (11:02)
[2021-12-02] MEDS ORDERED: fentaNYL 100 MCG/2 ML VIAL ONE (11:06)
[2021-12-02] MEDS ORDERED: miSOPROStoL 200 MCG TABLET ONE (12:34)
[2021-12-02] MEDS ORDERED: CARBOPROST TROMETHAMINE 250 MCG/ML AMP IM ONE (12:35)
[2021-12-02] MEDS ORDERED: METHYLERGONOVINE 0.2 MG/ML VIAL ONE ×2 (12:35→12:36)
[2021-12-02] MEDS ORDERED: LACTATED RINGERS 200 ML IV ONE (13:36)
--- NOTE | 2021-12-02 13:44 | OPERATIVE REPORT ---
Operative Report - General Admit Date: 12/02/21 Procedure Date: 12/02/21 Planned Procedure: Repeat low transverse section Pre-Op Diagnosis: Previous low transverse section, 39 weeks gestation Procedure Performed: Repeat low transverse section Post Op Diagnosis: Status post repeat low transverse section - Procedure Note Primary Surgeon: Markel Siu MD Secondary Surgeon: Storm Gtz MD Anesthesia Provider: Daphne Seo CRNA Anesthesia Technique: Spinal Pathology: None IV Fluids (mL): 1,800 Estimated Blood Loss (mL): 850 Urine Output (mL): 150 Complications: None - Other Other Information/Narrative: section was recommended. Risks, benefits and alternatives were discussed including but not limited to infection, bleeding that may require blood products or hysterectomy for life saving measures, injury to surrounding organs including but not limited to bowel, bladder, ureters, tubes and ovaries and/or the baby. Should injury occur it could require longer/additional surgery to repair. The patient stated understanding and desired to proceed. All questions were answered posed by patient. Prior to being taken to the OR, to grams of cefazolin IV was administered. The patient was taken to the operating room where regional anesthesia was found to be adequate. She was then prepared and draped in the usual sterile fashion in the dorsal supine position with a leftward tilt displacing the uterus. Thacker was draining to gravity. SCDs were on bilateral lower extremities. A pfannenstiel skin incision was then made with the scalpel and carried through to the underlying layer of fascia. The fascia was incised in the midline and the incision extended laterally with the Garcia scissors. The superior aspect of the facial incision was then grasped with the Jenni clamps, elevated and the underlying rectus muscles dissected off sharply. There was a moderate amount of scar tissue that had to be taken down to achieve room. Attention was then turned to the inferior aspect of this incision which in a similar fashion was grasped, elevated with the Jenni clamps and the rectus muscle dissected off sharply. The rectus muscles were in the midline. The peritoneum identified, grasped with the pick-ups and entered sharply with the Metzenbaum scissors. The peritoneal incision was then extended superiorly and inferiorly with good visualization of the bladder. The bladder blade was inserted. The vesicouterine peritoneum was identified, grasped with the pick-ups, and entered sharply with Metzenbaum scissors, but the scar tissue did not allow free dissection for bladder flap, so only a small window was opened. The bladder blade was reinserted. The lower uterine segment was identified and incised in a transverse fashion with the scalpel. The uterine incision was then extended bluntly laterally. Artificial rupture of membranes demonstrated clear fluid. The bladder blade was removed. The fetus was in a aris breech presentation. At this point, there is not enough room for the delivery, so a small segment of muscle to maternal right was incised and opened allowing for the delivery of the fetus. The fetus was delivered to the sacrum, then the legs were delivered. The fetus was then delivered to the scapula, rotated with left arm anterior and the arm was medially rotated and extended through the hysterotomy, and the fetus was then rotated to the right side and the right arm was similarly delivered. Head followed easily thereafter. With the infants mouth and nose were bulb suctioned. The umbilical cord was clamped times two and cut. The was handed to the pediatric team. Cord blood gases were obtained. The placenta was removed with gentle traction. 20 units of oxytocin were added to IVF and allowed to run freely. The uterus was exteriorized and cleared of all clots and debris. The uterine incision was inspe cted and found to be without any extensions and was repaired with 0 Vicryl in a running, locked fashion. A second imbricating layer was performed. Upon inspection, the repaired hysterotomy was found to be hemostatic. The uterus was firm and returned to the abdomen. The gutters were cleared of all clots and debris. The peritoneum was closed with a running suture of 2-0 Vicryl. The muscles were reapproximated with 2-0 Vicryl. The fascia was reapproximated with 0 Vicryl in a running fashion. The subcutaneous tissue was closed with 2-0 Vicryl. The skin was closed in a subcuticular fashion with 4-0 Monocryl. The patient tolerated the procedure well. Sponge, lap and needle counts were correct times three. The patient was taken to the recovery room in stable condition.
[2021-12-02] MEDS ORDERED: OXYTOCIN/SODIUM CHLORIDE 500 ML IV ONE (14:13)
--- NOTE | 2021-12-02 15:41 | ANESTHESIA POST OP EVALUATION ---
Anesthesia Post Eval - Post Anesthesia Eval Vitals: Last Vital Signs Temp 36.7 C 12/02/21 15:35 Pulse 78 12/02/21 14:32 Resp 17 12/02/21 14:32 BP 110/68 12/02/21 14:32 Pulse Ox 99 12/02/21 14:32 CV Function Including HR & BP: Stable Pain Control: Satisfactory Nausea & Vomiting: Negative Mental Status: Baseline Respiratory Status: Airway Patent Hydration Status: Satisfactory Anesthesia Complications: None
[2021-12-02] MEDS ORDERED: ONDANSETRON ODT 4 MG TABLET TL PRN (16:27)
[2021-12-02] MEDS ORDERED: SODIUM CHLORIDE FLUSH 0.9% 10 ML SYRINGE IVP PRN (16:27)
[2021-12-02] MEDS: KETOROLAC 30 MG/ML VIAL IVP SCH ×2 (16:58→22:55)
[2021-12-02] MEDS: SIMETHICONE CHEW 80 MG TABLET PO PRN (16:58)
[2021-12-02] MEDS: oxyCODONE 5 MG TABLET PO PRN ×2 (16:58→20:59)
[2021-12-02] MEDS ORDERED: SODIUM CHLORIDE FLUSH 0.9% 10 ML SYRINGE IVP SCH (17:00)
[2021-12-02] MEDS: ACETAMINOPHEN 500 MG TABLET PO SCH (19:41)
[2021-12-02] MEDS: DOCUSATE SODIUM 100 MG CAPSULE PO SCH (20:59)
[2021-12-03] MEDS: SIMETHICONE CHEW 80 MG TABLET PO PRN ×3 (01:27→18:21)
[2021-12-03] MEDS: oxyCODONE 5 MG TABLET PO PRN ×5 (01:27→20:03)
[2021-12-03] MEDS: ACETAMINOPHEN 500 MG TABLET PO SCH ×3 (04:10→20:04)
[2021-12-03] MEDS: KETOROLAC 30 MG/ML VIAL IVP SCH ×2 (05:29→11:29)
[2021-12-03 05:51] LABS: BASOPHILS % (AUTO) 0.1 %; EOSINOPHILS % (AUTO) 0.1 %; HCT - HEMATOCRIT 30.1 % (37.0-47.0); HGB - HEMOGLOBIN 10.2 g/dL (12.0-16.0); LYMPHOCYTES % (AUTO) 6.3 %; MEAN CORPUSCULAR HEMOGLOBIN 29.7 pg (27.0-31.0); MEAN CORPUSCULAR HGB CONC 33.9 g/dL (32.0-36.0); MEAN CORPUSCULAR VOLUME 87.5 fL (81.0-99.0); MEAN PLATELET VOLUME 9.9 fL (7.9-10.8); MONOCYTES # (AUTO) 1.4 10^3/uL (0.0-1.0); MONOCYTES % (AUTO) 8.4 %; NEUTROPHILS # (AUTO) 13.7 10^3/uL (1.5-6.6); NEUTROPHILS % (AUTO) 84.3 %; PLT - PLATELET COUNT 243 10^3/uL (130-450); RED BLOOD COUNT 3.44 10^6/uL (4.20-5.40); RED CELL DISTRIBUTION WIDTH 14.5 % (12.0-15.0); WHITE BLOOD COUNT 16.3 x10^3/uL (4.8-10.8)
--- NOTE | 2021-12-03 07:11 | PROVIDER PROGRESS NOTE ---
Subjective - Prog Note Date Prog Note Date: 12/03/21 Prog Note Time: 07:12 - Subjective Pt reports feeling: Improved Subjective: Subjective Ongoing pain, currently okay, but did complain overnight. Worst pain in right upper quadrant and some shoulder pain. This comes and goes in severity, but is relatively persistent. Discussed irritation of blood versus gas. Lochia appropriate. Did have a heavier gush when she stood up earlier, but no persistent bleeding. Ambulating without difficulty. Pelvic and abdominal pain well-controlled. Tolerating oral intake. Diet: Regular. Voiding without difficulty. Not passing flatus. No bowel movement. Patient is bonding with baby in room Breast-feeding and bottlefeeding. Denies feeling lightheaded, dizzy or excessively fatigued. Control: IUD Objective General: Alert, oriented, no apparent distress. Appears comfortable during exam. Able to sit, stand, and ambulated without significant pain currently. Cardiovascular: Regular rate. Regular rhythm. Lungs: No increased work of breathing. Abdomen: Uterus firm. Below umbilicus. No guarding or rebound. Incision: Clean, dry, and intact. Assessment and Plan day 1. -Routine care -Anticipate discharge tomorrow Postoperative pain -Encouraged ambulation, simethicone, regular diet. -1mg morphine q 4hr PRN Objective - Vital Signs/Intake & Output Vital Signs: Vital Signs x48h Temp Pulse Resp BP Pulse Ox 12/03/21 05:20 97.9 F 84 16 103/61 100 12/03/21 01:32 97.7 F 83 18 108/61 100 Intake & Output: Intake & Output 11/30/21 12/01/21 12/02/21 12/03/21 23:59 23:59 23:59 23:59 Intake Total 1400 400 Output Total 480 400 Balance 920 0 - Lab Results Fish Bones: 12/03/21 05:45 Other Labs: Lab Results x24hrs 12/03/21 12/02/21 12/02/21 Range/Units 05:45 09:45 09:43 WBC 16.3 H (4.8-10.8) x10^3/uL RBC 3.44 L (4.20-5.40) 10^6/uL Hgb 10.2 L (12.0-16.0) g/dL Hct 30.1 L (37.0-47.0) % MCV 87.5 (81.0-99.0) fL MCH 29.7 (27.0-31.0) pg MCHC 33.9 (32.0-36.0) g/dL RDW 14.5 (12.0-15.0) % Plt Count 243 (130-450) 10^3/uL MPV 9.9 (7.9-10.8) fL Neut # (Auto) 13.7 H (1.5-6.6) 10^3/uL Lymph # (Auto) 1.0 L (1.5-3.5) 10^3/uL [place] # (Auto) 1.4 H (0.0-1.0) 10^3/uL Eos # (Auto) 0.0 (0.0-0.7) 10^3/uL Baso # (Auto) 0.0 (0.0-0.1) 10^3/uL Absolute Nucleated RBC 0.00 x10^3/uL Nucleated RBC % 0.0 /100WBC POC Whole Bld Glucose 87 (70 - 100) mg/dL Blood Type B POSITIVE Antibody Screen POSITIVE Antibody Identification Anti-Jka Crossmatch See Detail 12/02/21 Range/Units 09:15 WBC 9.1 (4.8-10.8) x10^3/uL RBC 4.40 (4.20-5.40) 10^6/uL Hgb 13.1 (12.0-16.0) g/dL Hct 38.8 (37.0-47.0) % MCV 88.2 (81.0-99.0) fL MCH 29.8 (27.0-31.0) pg MCHC 33.8 (32.0-36.0) g/dL RDW 14.6 (12.0-15.0) % Plt Count 249 (130-450) 10^3/uL MPV 10.4 (7.9-10.8) fL Neut # (Auto) 6.8 H (1.5-6.6) 10^3/uL Lymph # (Auto) 1.3 L (1.5-3.5) 10^3/uL [place] # (Auto) 0.8 (0.0-1.0) 10^3/uL Eos # (Auto) 0.0 (0.0-0.7) 10^3/uL Baso # (Auto) 0.0 (0.0-0.1) 10^3/uL Absolute Nucleated RBC 0.00 x10^3/uL Nucleated RBC % 0.0 /100WBC POC Whole Bld Glucose (70 - 100) mg/dL Blood Type Antibody Screen Antibody Identification Crossmatch
--- NOTE | 2021-12-03 07:26 | Discharge Plan ---
Discharge Plan Problem Reviewed?: Yes Disposition: Home, Self Care Condition: Good Prescriptions: Acetaminophen [Acetaminophen Extra Strength] 1,000 mg PO Q8H PRN #60 tablet PRN Reason: Pain Docusate Sodium 100Mg Capsule [Colace 100Mg Capsule] 100 - 200 mg PO BID PRN #60 cap PRN Reason: Constipation Ibuprofen [Motrin] 600 mg PO Q6H PRN #30 tab PRN Reason: Pain oxyCODONE [Roxicodone] 2.5 - 5 mg PO Q4H PRN #24 tablet PRN Reason: Severe Pain Diet: Regular Activity Restrictions: Additional Comments (No heavy lifting for 6 weeks. Avoid baths until postoperative visit. Showers are fine.) Shower Restrictions: No Driving Restrictions: Yes (If taking opioid medications) Instruction Topics: C Section Dc No Smoking: If you smoke, Please STOP! Call for help. Follow-up with: Markel Siu MD [Provider Admit Priv/Credential] -
[2021-12-03] MEDS: DOCUSATE SODIUM 100 MG CAPSULE PO SCH ×2 (09:20→20:03)
[2021-12-03] MEDS: MORPHINE 2 MG/ML CARPUJECT IVP PRN ×2 (10:28→17:00)
[2021-12-03] MEDS ORDERED: BISACODYL 10 MG SUPP PR PRN (10:53)
[2021-12-03] MEDS ORDERED: MAGNESIUM HYDROXIDE 2,400 MG/30 ML UDC PO PRN (10:54)
[2021-12-03] MEDS ORDERED: SIMETHICONE CHEW 80 MG TABLET PO ONE (11:00)
[2021-12-03] MEDS ORDERED: polyethylene glycoL 3350 17 GM PACKET PO PRN (11:04)
--- NOTE | 2021-12-03 16:01 | MISCELLANEOUS PROVIDER NOTE ---
Miscellaneous Provider Note - - Note: Patient with complaints of neck pain right-sided back pain and right flank pain. Reports pain is worsened by movement. She denies chest pain or shortness of breath. She denies incisional pain. Her pain is not controlled with her current pain medications. She has not passed flatus. Recommend aggressive bowel regimen. On exam the patient was noted to have decreased breath sounds on the right side. Chest x-ray ordered. Normal active files. Bowel regimen ordered.
[2021-12-03] MEDS: IBUPROFEN 600 MG TABLET PO SCH ×2 (17:54→23:59)
--- NOTE | 2021-12-03 18:16 | XRAY Report ---
PROCEDURE: XR 2V Insp/Exp Post Thorac INDICATIONS: decreased breath sounds, pain, s/p TECHNIQUE: 2 view(s) of the chest. COMPARISON: None. FINDINGS: Surgical changes and devices: None. Lungs and pleura: No pleural effusions or pneumothorax. Lungs are clear on the inspiration views wit h patchy left greater than right bibasilar opacities on the expiration views. Mediastinum: Mediastinal contours are normal. Heart size is normal. Bones and chest wall: No suspicious bony abnormalities. Soft tissues appear unremarkable. IMPRESSION: Lungs are clear on the inspiration view with patchy bibasilar opacities on expiration vi ews which likely represent atelectasis. Reviewed by: Foreign Covarrubias MD on 12/03/2021 6:15 PM PST Approved by: Foreign Covarrubias MD on 12/03/2021 6:15 PM PST Station ID: [id number]
[2021-12-04] MEDS: oxyCODONE 5 MG TABLET PO PRN ×3 (03:48→08:33)
[2021-12-04] MEDS: ACETAMINOPHEN 500 MG TABLET PO SCH (03:48)
[2021-12-04] MEDS: IBUPROFEN 600 MG TABLET PO SCH (05:59)
[2021-12-04] MEDS: DOCUSATE SODIUM 100 MG CAPSULE PO SCH (08:33)
[2021-12-04 09:03] VITALS: BP 119/67
[2021-12-04] MEDS: SIMETHICONE CHEW 80 MG TABLET PO PRN (10:39)
[2021-12-04] MEDS ORDERED: KETOROLAC 30 MG/ML VIAL IVP ONE (11:00)
--- NOTE | 2021-12-04 12:16 | DISCHARGE SUMMARY ---
Discharge Summary Admit Date: 12/02/21 Discharge Date: 12/04/21 Discharging Provider: Chao Dwyer MD Condition at Discharge: Good Discharge Disposition: 01 Home, Self Care - DIAGNOSES Admission Diagnoses: Scheduled repeat section Discharge Diagnoses with Status of Each Condition: Status post repeat section - HOSPITAL COURSE Hospital Course: This is a 31-year-old G3, P3 postop day 3 status post repeat section. The patient was admitted for scheduled repeat section at term. The delivery was complicated by breech presentation. She her postoperative course was complicated by pain. Her pain was controlled on postop day 2 and the patient was stable for discharge. She was given detailed postoperative instructions. She was given recommendations for follow-up. - ALLERGIES Allergies/Adverse Reactions: Allergies Allergy/AdvReac Type Severity Reaction Status Date / Time amoxicillin Allergy Unknown Verified 12/02/21 12:54 cheese Allergy Hives Verified 12/02/21 12:54 Penicillins Allergy Hives Verified 12/02/21 12:54 Ranch Dressing Allergy Hives Verified 12/02/21 12:54 - MEDICATIONS Home Medications: Ambulatory Orders Medication Instructions Recorded Confirmed Docusate Sodium 100Mg Capsule 100 mg PO DAILY #20 capsule 10/06/20 06/29/21 [Colace 100Mg Capsule] No122/Iron/Folic Acid 1 tab PO DAILY 05/15/21 06/29/21 [ Multi Tablet] Metoclopramide [Reglan] 10 mg PO Q6H PRN #20 tablet 06/18/21 06/29/21 Metoclopramide [Reglan] 10 mg PO Q6H PRN #20 tablet 06/29/21 Metoclopramide [Reglan] 10 mg PO Q6H PRN #30 tablet 09/15/21 metroNIDAZOLE [Flagyl] 500 mg PO BID 7 Days #14 tablet 09/21/21 metroNIDAZOLE [Flagyl] 500 mg PO BID 7 Days #14 tablet 11/03/21 Acetaminophen [Acetaminophen Extra 1,000 mg PO Q8H PRN #60 tablet 12/03/21 Strength] Docusate Sodium 100Mg Capsule 100 - 200 mg PO BID PRN #60 cap 12/03/21 [Colace 100Mg Capsule] Ibuprofen [Motrin] 600 mg PO Q6H PRN #30 tab 12/03/21 oxyCODONE [Roxicodone] 2.5 - 5 mg PO Q4H PRN #24 tablet 12/03/21 - PHYSICAL EXAM AT DISCHARGE General Appearance: positive: No acute distress Abdomen: positive: Non-tender, Other (Incision well healing) Back: positive: Other (, Small area of ecchymosis noted at epidural insertion site. No warmth noted. Flat, Nontender, no edema noted.) - LABS Result Diagrams: 12/03/21 05:45 - FOLLOW UP Follow Up: With Dr. Siu in 2 to 3 weeks.
== END 2021-12-04 12:40 | disposition home or self-care (01) | DRG 787 ==
LOC: FBP 08:27
PROVIDERS: ADMIT Obstetrics & Gynecology; ATTEND Obstetrics & Gynecology
PROC: 10907ZC Drainage of Amniotic Fluid, Therapeutic from Products of Conception, Via Natural or Artificial Opening (ICD-10-PCS; 2021-12-02)
PROC: 10D00Z1 Extraction of Products of Conception, Low, Open Approach (ICD-10-PCS; principal; 2021-12-02 10:15)
DX: O32.1XX0 Maternal care for breech presentation, not applicable or unspecified (principal); O99.355 Diseases of the nervous system complicating the puerperium; O34.211 Maternal care for low transverse scar from previous cesarean delivery; N85.8 Other specified noninflammatory disorders of uterus; Z3A.39 39 weeks gestation of pregnancy; Z37.0 Single live birth; O99.214 Obesity complicating childbirth; E66.01 Morbid (severe) obesity due to excess calories; G89.18 Other acute postprocedural pain
CPT/HCPCS: 36415; 85025; 86850; 86870; 86880; 86900; 86901; 86922; A9270; J0131; J2210; J7040; J7120

== ENCOUNTER 2022-01-06 11:52 | Outpatient (CLI) | payer MEDICAID | END 2022-01-06 11:53 | disposition critical access hospital (66) | LOC: EMS 11:52 | DX: R07.9 Chest pain, unspecified (principal); R11.10 Vomiting, unspecified; R10.11 Right upper quadrant pain; R10.12 Left upper quadrant pain | CPT/HCPCS: A0425; A0427; A0999 ==

== ENCOUNTER 2022-01-06 12:12 | Emergency (ER) | payer MEDICAID ==
[2022-01-06] MEDS ORDERED: HYDROmorphone 1 MG/ML CARPUJECT IVP STA (12:34)
[2022-01-06] MEDS ORDERED: ONDANSETRON 4 MG/2 ML VIAL IVP STA (12:34)
--- NOTE | 2022-01-06 12:35 | ED Physician Documentation ---
PD HPI ABD PAIN - Stated complaint Stated Complaint: ABD PX - Chief complaint Chief Complaint: Cardiac - History obtained from History obtained from: Patient - Additional information Additional information: 31-year-old woman is about 5 weeks from a . She is bottlefeeding. She was seen here recently for chest and abdominal pain and found to have pancreatitis. CT imaging was negative. She was doing well after her ED visit, but pain relapsed this morning after eating eggs and coffee mixed with MiraLAX for constipation. She has no known history of gallstones. She does not drink any alcohol. No prior history of pancreatitis before that last episode. History of , no other abdominal surgeries. Pain is in the upper abdomen. She vomited profusely after it developed, no hematemesis. Review of Systems Ten Systems: 10 systems reviewed and negative Constitutional: denies: Fever, Chills Nose: reports: Reviewed and negative Throat: reports: Reviewed and negative Cardiac: reports: Reviewed and negative Respiratory: reports: Reviewed and negative PD PAST MEDICAL HISTORY - Past Medical History Cardiovascular: None Respiratory: Asthma (well controlled, no inhaler) Neuro: Migraines Endocrine/Autoimmune: None GI: GERD (w/), Ulcers, Ulcerative colitis, Other PAPER REWINDER: None : Other HEENT: None Psych: Depression, Anxiety Musculoskeletal: Osteoarthritis, Other Derm: None - Past Surgical History Past Surgical History: Yes /PAPER REWINDER: section (SAB x2 for previous c/s butdoesnt remember anything after baby delivered) - Present Medications Home Medications: Ambulatory Orders Medication Instructions Recorded Confirmed Docusate Sodium 100Mg Capsule 100 mg PO DAILY #20 capsule 10/06/20 12/28/21 [Colace 100Mg Capsule] Metoclopramide [Reglan] 10 mg PO Q6H PRN #30 tablet 09/15/21 12/28/21 HYDROcod/ACETAM 5/325 [[place] 5/325] 1 - 2 ea PO Q6H PRN #14 tablet 12/28/21 Ondansetron Odt [Zofran] 4 mg TL Q6H PRN #10 tablet 12/28/21 Ondansetron Odt [Zofran] 4 mg TL Q6H PRN #10 tablet 01/06/22 Oxycodone HCl/Acetaminophen 1 - 2 each PO Q6H PRN #20 tablet 04/14/22 [Percocet 5-325 mg Tablet] - Allergies Allergies/Adverse Reactions: Allergies Allergy/AdvReac Type Severity Reaction Status Date / Time amoxicillin Allergy Unknown Verified 01/06/22 12:22 cheese Allergy Hives Verified 01/06/22 12:22 Penicillins Allergy Hives Verified 01/06/22 12:22 Ranch Dressing Allergy Hives Verified 01/06/22 12:22 - Social History Does the pt smoke?: Yes Smoking Status: Former smoker Does the pt drink ETOH?: No Does the pt have substance abuse?: No - Immunizations Immunizations are current?: Yes - POLST Patient has POLST: No PD ED PE NORMAL - Vitals Vital signs reviewed: Yes - General General: Alert and oriented X 3, No acute distress - HEENT HEENT: PERRL, EOMI - Neck Neck: Supple, no meningeal sign, No bony TTP - Cardiac Cardiac: RRR, No murmur - Respiratory Respiratory: No respiratory distress, Clear bilaterally - Abdomen Abdomen: Normal bowel sounds, Soft, Other (Mild upper abdominal tenderness without surgical signs, mild lower abdominal tenderness which she thinks is from healing .) - Back Back: No CVA TTP, No spinal TTP - Derm Derm: Normal color, Warm and dry - Extremities Extremities: No edema, No calf tenderness / cord - Neuro Neuro: Alert and oriented X 3, Normal speech Results - Vitals Vitals: Vital Signs - 24 hr 01/06/22 12:17 Temperature 36.7 C Heart Rate 88 Respiratory 16 Rate Blood Pressure 121/99 H O2 Saturation 98 Oxygen O2 Source Room air - EKG (time done) 1228 Rate: Rate (enter#) (74) Rhythm: NSR Oneco: Normal Intervals: Prolonged VT QRS: Normal Ischemia: Normal ST segments - Labs Labs: Laboratory Tests 01/06/22 01/06/22 01/06/22 12:40 12:40 12:40 WBC 9.9 RBC 4.31 Hgb 12.5 Hct 37.3 MCV 86.5 MCH 29.0 MCHC 33.5 RDW 13.2 Plt Count 281 MPV 9.7 Neut # (Auto) 7.7 H Lymph # (Auto) 1.4 L [place] # (Auto) 0.7 Eos # (Auto) 0.1 Baso # (Auto) 0.0 Absolute Nucleated RBC 0.00 Nucleated RBC % 0.0 Sodium 134 L Potassium 3.9 Chloride 101 Carbon Dioxide 24 Anion Gap 9.0 BUN 10 Creatinine 0.8 Estimated GFR (MDRD) 83 L Glucose 93 Calcium 8.5 Total Bilirubin 0.7 AST 25 ALT 18 Alkaline Phosphatase 137 H Total Protein 7.1 Albumin 3.6 Globulin 3.5 Albumin/Globulin Ratio 1.0 Triglycerides 92 Cholesterol 180 LDL Cholesterol, Calc 114 VLDL Cholesterol 18 HDL Cholesterol 48 L LDL/HDL Ratio 2.4 Cholesterol/HDL Ratio 3.8 Lipase 60 H Serum HCG, Qual Ethyl Alcohol < 5.0 01/06/22 12:40 WBC RBC Hgb Hct MCV MCH MCHC RDW Plt Count MPV Neut # (Auto) Lymph # (Auto) [place] # (Auto) Eos # (Auto) Baso # (Auto) Absolute Nucleated RBC Nucleated RBC % Sodium Potassium Chloride Carbon Dioxide Anion Gap BUN Creatinine Estimated GFR (MDRD) Glucose Calcium Total Bilirubin AST ALT Alkaline Phosphatase Total Protein Albumin Globulin Albumin/Globulin Ratio Triglycerides Cholesterol LDL Cholesterol, Calc VLDL Cholesterol HDL Cholesterol LDL/HDL Ratio Cholesterol/HDL Ratio Lipase Serum HCG, Qual NEGATIVE Ethyl Alcohol - Rads (name of study) RUQ sono Radiology: EMP read contemporaneously (Cholelithiasis with gallbladder wall thickening, echogenic liver, gallbladder polyps versus adherent gallstones) PD MEDICAL DECISION MAKING - ED course ED course: 31-year-old woman with recent bout of pancreatitis of unknown etiology presents with recurrent upper abdominal pain. Now with minimal elevation in thanks pancreatic enzymes, and an ultrasound was done showing gallstones. Clinically I do not think she has pancreatitis or cholecystitis, just biliary colic and her pain was controlled after some medication here and she requested discharge. I discussed the need for follow-up for surgical consultation and return precautions. Departure - Departure Disposition: 01 Home, Self Care Clinical Impression: Biliary colic Condition: Good Record reviewed to determine appropriate education?: Yes Instructions: ED Gallstone W Biliary Colic Prescriptions: Oxycodone HCl/Acetaminophen [Percocet 5-325 mg Tablet] 1 - 2 each PO Q6H PRN #20 tablet PRN Reason: pain Ondansetron Odt [Zofran] 4 mg TL Q6H PRN #10 tablet PRN Reason: Nausea / Vomiting Comments: As discussed, we found today that you have gallstones. The gallstones were likely the prior cause of the pancreatitis you had on your prior visit. Now that you are having symptomatic gallstones it is likely that she will eventually need your gallbladder out. Call the surgeon located listed on this form today or tomorrow to arrange for follow-up appointment. Return for new or worsening symptoms. I sent your prescriptions electronically to [facility] in [place] I am prescribing a short course of narcotic pain medication for you. These are potentially dangerous and addictive medications that should be used carefully. These medications may constipate you. Take an nvsp-[id number]-[id number] stool softener (docusate) twice daily with plenty of water while taking these medications. If you go 24 hours without a bowel movement, take [id number] miralax, per package instructions. Do not drink or drive while taking these medications. If you received narcotic or sedating medications while in the emergency department, do not drive for 24 hours. Store this medication in a safe, secure place and out of reach of children. It is a violation of federal law to give or sell this medication to another person or to use in a manner other than prescribed. The ED will not refill narcotic prescriptions, including prescriptions lost or stolen. To dispose of unwanted medications: 1. [facility] [address] in [place] has a medication drop box. They accept prescription medications (in pill form) Monday through Monday 9:00 a.m. to 5:00 p.m. 2. The [facility] [employer] accepts prescription medications (in pill form only) for disposal year round. Call for more information. 3. Contact the [facility] for the next [facility] sponsored prescription drug collection event. , [phone], or [phone]; Note that many narcotic pain relievers also contain Tylenol/acetaminophen. Please ensure that your total dose of acetaminophen from all sources does not exceed 3 g (3000 mg) per day.
[2022-01-06 12:48] LABS: BASOPHILS % (AUTO) 0.2 %; EOSINOPHILS # (AUTO) 0.1 10^3/uL (0.0-0.7); EOSINOPHILS % (AUTO) 0.6 %; HCT - HEMATOCRIT 37.3 % (37.0-47.0); HGB - HEMOGLOBIN 12.5 g/dL (12.0-16.0); LYMPHOCYTES # (AUTO) 1.4 10^3/uL (1.5-3.5); LYMPHOCYTES % (AUTO) 14.1 %; MEAN CORPUSCULAR HGB CONC 33.5 g/dL (32.0-36.0); MEAN CORPUSCULAR VOLUME 86.5 fL (81.0-99.0); MEAN PLATELET VOLUME 9.7 fL (7.9-10.8); MONOCYTES # (AUTO) 0.7 10^3/uL (0.0-1.0); MONOCYTES % (AUTO) 7.5 %; NEUTROPHILS # (AUTO) 7.7 10^3/uL (1.5-6.6); NEUTROPHILS % (AUTO) 77.3 %; PLT - PLATELET COUNT 281 10^3/uL (130-450); RED BLOOD COUNT 4.31 10^6/uL (4.20-5.40); RED CELL DISTRIBUTION WIDTH 13.2 % (12.0-15.0); WHITE BLOOD COUNT 9.9 x10^3/uL (4.8-10.8)
[2022-01-06 13:00] LABS: ALBUMIN 3.6 g/dL (3.2-5.5); BILIRUBIN,TOTAL 0.7 mg/dL (0.2-1.0); CALCIUM 8.5 mg/dL (8.5-10.3); CREATININE 0.8 mg/dL (0.4-1.0); POTASSIUM 3.9 mmol/L (3.5-5.0); TOTAL PROTEIN 7.1 g/dL (6.7-8.2)
[2022-01-06 13:16] LABS: CHOL/HDL RATIO 3.8 (<4.4); CHOLESTEROL 180 mg/dL; ETOH - ETHANOL < 5.0 mg/dL; HDL CHOLESTEROL 48 mg/dL; LDL CHOLESTEROL,CALCULATED 114 mg/dL; LDL/HDL RATIO 2.4 (<4.4); TRIGLYCERIDES 92 mg/dL; VLDL CHOLESTEROL 18 mg/dL
[2022-01-06] MEDS ORDERED: KETOROLAC 15 MG/ML VIAL IVP STA (13:24)
[2022-01-06] MEDS ORDERED: METOCLOPRAMIDE 10 MG/2 ML VIAL IVP STA (13:33)
--- NOTE | 2022-01-06 13:44 | Ultrasound Report ---
PROCEDURE: Abdomen Limited INDICATIONS: pancreatitis TECHNIQUE: Real-time focused scanning was performed of the abdomen, with image documentation. COMPARISON: None FINDINGS: Liver is normal in size. Liver is diffusely echogenic. No focal hepatic mass lesions. Multiple gallstones are noted. Nonmobile echogenic foci noted in the gallbladder which could represen t adherent stones or gallbladder polyps. Gallbladder wall is thickened to 3.2 mm. No pericholecystic fluid. No sonographic Suarez sign reported. Biliary tree is nondilated. Common bile duct measures 4.3 mm. Pancreas is sonographically normal. Right kidney is sonographically normal. IMPRESSION: 1. Cholelithiasis with gallbladder wall thickening. Acute cholecystitis is not excluded by this study . Recommend correlation with clinical data. If there is clinical concern for cholecystitis, consider nuclear medicine HIDA scan for definitive characterization f the findings. 2. Pancreas is sonographically normal. 3. Echogenic liver. Finding typically represents fatty infiltration, however the finding is nonspecif ic and other etiologies including hepatic cirrhosis can produce a similar appearance. Recommend corre lation with clinical and laboratory data. 4. Small 3 mm gallbladder polyps versus adherent gallstones. Reviewed by: Penny Scruggs MD, PhD on 01/06/2022 1:43 PM PDT Approved by: Penny Scruggs MD, PhD on 01/06/2022 1:43 PM PDT Station ID: [id number]
[2022-01-06 14:12] LABS: HCG,QUALITATIVE BLOOD NEGATIVE
[2022-01-06 14:23] VITALS: BP 95/63
[2022-01-06 14:29] LABS: BILIRUBIN,URINE NEGATIVE (NEGATIVE); GLUCOSE, URINE (UA) NEGATIVE (NEGATIVE); KETONES,URINE (UA) 15 mg/dL (NEGATIVE); LEUKOCYTE ESTERASE, URINE NEGATIVE (NEGATIVE); NITRITE,URINE NEGATIVE (NEGATIVE); OCCULT BLOOD,URINE NEGATIVE (NEGATIVE); PROTEIN,URINE NEGATIVE (NEGATIVE); UROBILINOGEN,URINE 0.2 (NORMAL) E.U./dL (NORMAL)
[2022-01-06 14:33] LABS: CLARITY,URINE CLEAR (CLEAR); HCG UR QUAL NEGATIVE
== END 2022-01-06 14:27 | disposition home or self-care (01) ==
LOC: EDUNIT# → ED 12:12
DX: K80.50 Calculus of bile duct without cholangitis or cholecystitis without obstruction (principal); Z87.891 Personal history of nicotine dependence
CPT/HCPCS: 36415; 76705; 80053; 80061; 80320; 81003; 81025; 83690; 84703; 85025; 93005; 96374; 96375; 99284; 99285; J1170; J2765; 81001; 83721; 87086

== ENCOUNTER 2022-01-19 01:15 | Emergency (ER) | payer MEDICAID ==
--- NOTE | 2022-01-19 01:51 | ED Physician Documentation ---
PD HPI ABD PAIN - Stated complaint Stated Complaint: ABD/CHEST PX - Chief complaint Chief Complaint: Abd Pain - History obtained from History obtained from: Patient - History of Present Illness Timing - onset: How many weeks ago (approximately 3 weeks) Timing - details: Abrupt onset, Waxing and waning Pain level now: 8 Quality: Pain Location: RUQ Radiation: Right flank Improved by: Other (no ameliorating factors) Worsened by: Palpation Associated symptoms: Nausea, Vomiting. No: Fever Similar symptoms before: Diagnosis (pancreatitis, biliary colic (see below)) Recently seen: Emergency Dept - Additional information Additional information: c/o RUQ pain radiating to right flank, episodic x few weeks. She was evaluated in this ED 12/28 (I was the ED physician on that visit) and diagnosed with pancreatitis, lipase 1859. She returned 01/06 to this ED for recurrence of the pain; at that time, her lipase was only 60 but US revealed multiple gallstones and thus diagnosis was biliary colic. She is scheduled to meet with general surgeon next week but returns at this time due to recurrence of this pain. She also has n/v. She has run out of the zofran and percocet prescribed on previous ED visit. Review of Systems Constitutional: reports: Reviewed and negative Cardiac: reports: Reviewed and negative Respiratory: reports: Reviewed and negative GI: reports: Abdominal Pain, Nausea, Vomiting. denies: Abdominal Swelling, Constipation, Diarrhea PD PAST MEDICAL HISTORY - Past Medical History Cardiovascular: None Respiratory: Asthma (well controlled, no inhaler) Neuro: Migraines Endocrine/Autoimmune: None GI: GERD (w/), Ulcers, Ulcerative colitis, Other ESTHETICIAN/SKIN THERAPIST: None : Other HEENT: None Psych: Depression, Anxiety Musculoskeletal: Osteoarthritis, Other Derm: None - Past Surgical History Past Surgical History: Yes /ESTHETICIAN/SKIN THERAPIST: section (SAB x2 for previous c/s butdoesnt remember anything after baby delivered) - Present Medications Home Medications: Ambulatory Orders Medication Instructions Recorded Confirmed Docusate Sodium 100Mg Capsule 100 mg PO DAILY #20 capsule 10/06/20 12/28/21 [Colace 100Mg Capsule] Ondansetron Odt [Zofran] 4 mg TL Q6H PRN #10 tablet 12/28/21 Ondansetron Odt [Zofran Odt] 4 mg TL Q6H PRN #14 tablet 01/19/22 Oxycodone HCl/Acetaminophen 1 - 2 each PO Q6H PRN #14 tablet 01/19/22 [Percocet 5-325 mg Tablet] - Allergies Allergies/Adverse Reactions: Allergies Allergy/AdvReac Type Severity Reaction Status Date / Time amoxicillin Allergy Unknown Verified 01/19/22 01:20 cheese Allergy Hives Verified 01/19/22 01:20 Penicillins Allergy Hives Verified 01/19/22 01:20 Ranch Dressing Allergy Hives Verified 01/19/22 01:20 - Social History Does the pt smoke?: Yes Smoking Status: Former smoker Does the pt drink ETOH?: No Does the pt have substance abuse?: No - Immunizations Immunizations are current?: Yes - POLST Patient has POLST: No PD ED PE NORMAL - Vitals Vital signs reviewed: Yes - General General: Alert and oriented X 3, No acute distress, Well developed/nourished - Cardiac Cardiac: RRR, No murmur - Respiratory Respiratory: No respiratory distress, Clear bilaterally - Abdomen Abdomen: Soft, Non distended, Other (mild RUQ TTP without rebound or guarding) - Back Back: No CVA TTP - Derm Derm: Normal color, Warm and dry, No rash Results - Vitals Vitals: Oxygen O2 Source Room air - Labs Labs: Laboratory Tests 01/19/22 01/19/22 01/19/22 01:34 01:34 03:00 WBC 11.2 H RBC 4.48 Hgb 13.1 Hct 39.2 MCV 87.5 MCH 29.2 MCHC 33.4 RDW 13.3 Plt Count 395 MPV 9.6 Neut # (Auto) 8.1 H Lymph # (Auto) 2.1 [place] # (Auto) 0.8 Eos # (Auto) 0.1 Baso # (Auto) 0.0 Absolute Nucleated RBC 0.00 Nucleated RBC % 0.0 Sodium 137 Potassium 4.0 Chloride 103 Carbon Dioxide 24 Anion Gap 10.0 BUN 16 Creatinine 0.9 Estimated GFR (MDRD) 72 L Glucose 88 Calcium 8.9 Total Bilirubin 0.7 AST 16 ALT 13 Alkaline Phosphatase 97 Total Protein 7.4 Albumin 3.8 Globulin 3.6 Albumin/Globulin Ratio 1.1 Amylase 66 Lipase 55 H Urine Color Urine Clarity Urine pH Ur Specific [place] Urine Protein Urine Glucose (UA) Urine Ketones Urine Occult Blood Urine Nitrite Urine Bilirubin Urine Urobilinogen Ur Leukocyte Esterase Ur Microscopic Review Urine Culture Comments Urine HCG, Qual NEGATIVE 01/19/22 03:00 WBC RBC Hgb Hct MCV MCH MCHC RDW Plt Count MPV Neut # (Auto) Lymph # (Auto) [place] # (Auto) Eos # (Auto) Baso # (Auto) Absolute Nucleated RBC Nucleated RBC % Sodium Potassium Chloride Carbon Dioxide Anion Gap BUN Creatinine Estimated GFR (MDRD) Glucose Calcium Total Bilirubin AST ALT Alkaline Phosphatase Total Protein Albumin Globulin Albumin/Globulin Ratio Amylase Lipase Urine Color YELLOW Urine Clarity CLEAR Urine pH 6.0 Ur Specific [place] 1.025 Urine Protein NEGATIVE Urine Glucose (UA) NEGATIVE Urine Ketones NEGATIVE Urine Occult Blood NEGATIVE Urine Nitrite NEGATIVE Urine Bilirubin NEGATIVE Urine Urobilinogen 0.2 (NORMAL) Ur Leukocyte Esterase NEGATIVE Ur Microscopic Review NOT INDICATED Urine Culture Comments NOT INDICATED Urine HCG, Qual PD MEDICAL DECISION MAKING - ED course Complexity details: reviewed old records, reviewed results, re-evaluated patient, considered differential, d/w patient ED course: presents with recurrence of RUQ pain that was attributed on previous ED visit to biliary colic (multiple gallstones on US at that time). Tonights blood tests are reassuring, with minimal leukocytosis, lipase 55, normal UA (negative urine HCG as well), and normal LFTs. She reports significant improvement after IV dilaudid, toradol, and zofran. She is given percocet take-home pack and rx for zofran and percocet transmitted to her pharmacy of choice. Return precautions discussed. Departure - Departure Disposition: 01 Home, Self Care Clinical Impression: Biliary colic Condition: Good Instructions: ED Gallstone W Biliary Colic Prescriptions: Oxycodone HCl/Acetaminophen [Percocet 5-325 mg Tablet] 1 - 2 each PO Q6H PRN #14 tablet PRN Reason: pain Ondansetron Odt [Zofran Odt] 4 mg TL Q6H PRN #14 tablet PRN Reason: Nausea / Vomiting Comments: Follow up with the surgeon as scheduled next week. Prescriptions for percocet and ondansetron have been electronically submitted to [facility] in [place]. Discharge Date/Time: 01/19/22 03:52
[2022-01-19 01:57] LABS: BASOPHILS % (AUTO) 0.4 %; EOSINOPHILS # (AUTO) 0.1 10^3/uL (0.0-0.7); EOSINOPHILS % (AUTO) 0.9 %; HCT - HEMATOCRIT 39.2 % (37.0-47.0); HGB - HEMOGLOBIN 13.1 g/dL (12.0-16.0); LYMPHOCYTES # (AUTO) 2.1 10^3/uL (1.5-3.5); LYMPHOCYTES % (AUTO) 18.9 %; MEAN CORPUSCULAR HEMOGLOBIN 29.2 pg (27.0-31.0); MEAN CORPUSCULAR HGB CONC 33.4 g/dL (32.0-36.0); MEAN CORPUSCULAR VOLUME 87.5 fL (81.0-99.0); MEAN PLATELET VOLUME 9.6 fL (7.9-10.8); MONOCYTES # (AUTO) 0.8 10^3/uL (0.0-1.0); NEUTROPHILS # (AUTO) 8.1 10^3/uL (1.5-6.6); NEUTROPHILS % (AUTO) 72.5 %; PLT - PLATELET COUNT 395 10^3/uL (130-450); RED BLOOD COUNT 4.48 10^6/uL (4.20-5.40); RED CELL DISTRIBUTION WIDTH 13.3 % (12.0-15.0); WHITE BLOOD COUNT 11.2 x10^3/uL (4.8-10.8)
[2022-01-19 02:09] LABS: ALBUMIN 3.8 g/dL (3.2-5.5); ALBUMIN/GLOBULIN RATIO 1.1 (1.0-2.2); BILIRUBIN,TOTAL 0.7 mg/dL (0.2-1.0); CALCIUM 8.9 mg/dL (8.5-10.3); CREATININE 0.9 mg/dL (0.4-1.0); TOTAL PROTEIN 7.4 g/dL (6.7-8.2)
[2022-01-19] MEDS ORDERED: ONDANSETRON 4 MG/2 ML VIAL IVP STA (02:25)
[2022-01-19] MEDS ORDERED: KETOROLAC 30 MG/ML VIAL IVP STA (02:25)
[2022-01-19] MEDS ORDERED: HYDROmorphone 1 MG/ML CARPUJECT IVP STA (02:25)
[2022-01-19 03:14] LABS: BILIRUBIN,URINE NEGATIVE (NEGATIVE); GLUCOSE, URINE (UA) NEGATIVE (NEGATIVE); KETONES,URINE (UA) NEGATIVE (NEGATIVE); LEUKOCYTE ESTERASE, URINE NEGATIVE (NEGATIVE); NITRITE,URINE NEGATIVE (NEGATIVE); OCCULT BLOOD,URINE NEGATIVE (NEGATIVE); PROTEIN,URINE NEGATIVE (NEGATIVE); UROBILINOGEN,URINE 0.2 (NORMAL) E.U./dL (NORMAL)
[2022-01-19 03:15] LABS: CLARITY,URINE CLEAR (CLEAR)
[2022-01-19 03:16] LABS: HCG UR QUAL NEGATIVE
[2022-01-19] MEDS ORDERED: oxyCODONE/ACET 5/325 Prepack 4 PO STA (03:34)
[2022-01-19 03:42] VITALS: BP 106/75
== END 2022-01-19 03:52 | disposition home or self-care (01) ==
LOC: ED 01:15
DX: K80.50 Calculus of bile duct without cholangitis or cholecystitis without obstruction (principal); Z87.891 Personal history of nicotine dependence
CPT/HCPCS: 36415; 80053; 81003; 81025; 82150; 83690; 85025; 93005; 96374; 99284; J1170; 81001; 87086

== ENCOUNTER 2022-01-26 06:23 | Day surgery (SDC) | payer MEDICAID ==
[~2022-01-26 06:23] MED LIST: CEFAZOLIN SODIUM IN 0.9 % NACL 2 GM/50 ML BAG IV ONE
[2022-01-26 06:38] LABS: HCG UR QUAL NEGATIVE
[2022-01-26] MEDS ORDERED: LACTATED RINGERS 1,000 ML IV ONE (06:55)
--- NOTE | 2022-01-26 07:02 | ANESTHESIA ---
Pre-Anesthesia VS, & Labs - Diagnosis chronic cholelithiasis, hx gallstones, pancreatitis - Procedure laparoscopic cholecystectomy Vital Signs: Temp Pulse Resp BP Pulse Ox 36.0 C L 71 14 109/70 98 01/26/22 06:37 01/26/22 06:37 01/26/22 06:37 01/26/22 06:37 01/26/22 06:37 Height: 5 ft 4 in Weight (kg): 99.3 kg Body Mass Index: 37.5 BMI Classification: Obese - NPO >8 hours - Is Patient ?: No - Lab Results Lab results reviewed: Yes Home Medications and Allergies Allergies/Adverse Reactions: Allergies Allergy/AdvReac Type Severity Reaction Status Date / Time amoxicillin Allergy Unknown Verified 01/19/22 01:20 cheese Allergy Hives Verified 01/19/22 01:20 Penicillins Allergy Hives Verified 01/19/22 01:20 Ranch Dressing Allergy Hives Verified 01/19/22 01:20 Anes History & Medical History - Anesthetic History Anesthesia Complications: reports: No previous complications Family history of Anesthesia Complications: Denies Family history of Malignant Hyperthermia: Denies - Medical History Cardiovascular: reports: None Pulmonary: reports: Asthma Gastrointestinal: reports: Colon polyps, Pancreatitis, Ulcerative colitis, Other Urinary: reports: None Neuro: reports: Migraines Musculoskeletal: reports: Osteoarthritis, Other Endocrine/Autoimmune: reports: None Blood Disorders: reports: Anemia Skin: reports: None Smoking Status: Current every day smoker Psychosocial: reports: No issues indicated History of Cancer?: No - Surgical History General: reports: Colonoscopy Gynecologic: reports: section Exam General: Alert, Oriented x3, Cooperative Dental: WNL Mouth Openin Fingerbreadth Neck Mobility: Normal Mallampati classification: II Respiratory: Lungs clear, Normal breath sounds, No respiratory distress Cardiovascular: Regular rate Neurological: Normal speech Mental/Cognitive Status: Alert/Oriented X3, Normal for patient Cognitive Status: Within normal limits Plan Anesthesia Type: General Consent for Procedure(s) Verified and Reviewed: Yes Code Status: Attempt Resuscitation ASA classification: 2-Mild systemic disease Is this case an emergency?: No
[2022-01-26] MEDS ORDERED: BUPIVACAINE 0.25% PF 10 ML VIAL SUBQ ONE (07:03)
[2022-01-26] MEDS ORDERED: BUPIVACAINE 0.25% PF 10 ML VIAL ONE (07:05)
[2022-01-26] MEDS ORDERED: ONDANSETRON 4 MG/2 ML VIAL IVP PRN ×2 (07:15→08:55)
[2022-01-26] MEDS ORDERED: NALOXONE 0.4 MG/ML VIAL IVP PRN (07:15)
[2022-01-26] MEDS ORDERED: HYDROmorphone 0.5 MG/0.5 ML SYRINGE IVP PRN (07:15)
[2022-01-26] MEDS ORDERED: MORPHINE 2 MG/ML CARPUJECT IVP PRN (07:15)
[2022-01-26] MEDS ORDERED: ATROPINE ABBOJECT 1 MG/10 ML SYRINGE IVP PRN (07:15)
[2022-01-26] MEDS ORDERED: METOCLOPRAMIDE 10 MG/2 ML VIAL IVP PRN (07:15)
[2022-01-26] MEDS ORDERED: ePHEDrine 50 MG/ML VIAL IVP PRN (07:15)
[2022-01-26] MEDS ORDERED: MIDAZOLAM 2 MG/2 ML VIAL ONE (07:17)
[2022-01-26] MEDS ORDERED: fentaNYL 100 MCG/2 ML VIAL ONE ×3 (07:17→09:35)
[2022-01-26] MEDS ORDERED: ROCURONIUM 50 MG/5 ML VIAL ONE (07:19)
[2022-01-26] MEDS ORDERED: LIDOCAINE-MPF 2% 5 ML VIAL ONE (07:19)
[2022-01-26] MEDS ORDERED: PROPOFOL 200 MG/20 ML VIAL IVP ONE (07:19)
[2022-01-26] MEDS ORDERED: ONDANSETRON 4 MG/2 ML VIAL ONE ×2 (07:22→09:35)
[2022-01-26] MEDS ORDERED: ACETAMINOPHEN 1,000 MG/100 ML 100 ML IV ONE (07:56)
[2022-01-26] MEDS ORDERED: diphenhydrAMINE INJ 50 MG/ML VIAL ONE (07:56)
[2022-01-26] MEDS ORDERED: METOCLOPRAMIDE 10 MG/2 ML VIAL ONE (07:56)
[2022-01-26] MEDS ORDERED: DEXAMETHASONE 4 MG/ML VIAL ONE (08:00)
[2022-01-26] MEDS ORDERED: LACTATED RINGERS 1,000 ML IV SCH (08:00)
[2022-01-26] MEDS ORDERED: SUGAMMADEX 200 MG/2 ML VIAL IVP ONE (08:42)
[2022-01-26] MEDS ORDERED: KETOROLAC 30 MG/ML VIAL ONE (08:47)
[2022-01-26] MEDS ORDERED: oxyCODONE 5 MG TABLET PO PRN (08:55)
[2022-01-26] MEDS ORDERED: LACTATED RINGERS 200 ML IV ONE (08:56)
--- NOTE | 2022-01-26 09:02 | OPERATIVE REPORT ---
Operative Report - General Procedure Date: 01/26/22 Planned Procedure: lap chance Pre-Op Diagnosis: chronic cholecystitis and hx gallstone pancreatitis Procedure Performed: lap chance Post Op Diagnosis: mild chronic cholecystitis - Procedure Note Primary Surgeon: geovanna houston Anesthesia Technique: General ET tube, Local Pathology: gallbladder Estimated Blood Loss (mL): 2 Indications: as above Findings: as above Complications: none - Other Other Information/Narrative: The patient was properly identified, brought to the operating room and placed in supine position. Sequential compression devices were placed. General endotracheal anesthesia was induced. The patient was prepped and draped in a sterile fashion and given preoperative antibiotics. Local anesthetic was given to incision areas. An incision was made in the periumbilical area. Dissection proceeded down to fascia. The fascia was incised lifted upwards and abdomen entered with a Veress needle. CO2 was insufflated to a pressure of 15. An 11 mm trocar followed by a 30 degree scope was placed. There was no evidence of injury from Veress needle or trocar placement. Under direct vision 2 5 mm trochars were placed in the right upper quadrant and an 11 mm trocar was placed in the epigastrium. Body of the gallbladder was retracted anterior. Lateral attachments were partially taken down further mobilizing the gallbladder more anterior and away from the duodenum. The infundibulum of the gallbladder was then retracted right lateral and caudad. With minimal use of cautery a large bare cystic plate area or window was carefully created. The cystic duct was inspected from right lateral and left lateral positions. [] The cystic duct was then clipped at the gallbladder and 3 times slightly proximal and sharply divided. The cystic artery was clipped at the gallbladder and then 2 times slightly proximal and sharply divided. The gallbladder was mobilized off from the bed of the liver with hook cautery. The gallbladder was placed in Endo Catch bag and brought out through the epigastric trocar site. Hemostasis was assured. Trochars were removed under direct vision. Fascia at the larger trocar sites was closed with [id number] are running 0 Vicryl suture. Subcutaneous tissue was irrigated and skin closed with interrupted 4-0 Monocryl. Given her adhesive allergy skin glue was placed as a dressing. Patient tolerated the procedure well was awakened and brought to recovery in good condition.
[2022-01-26] MEDS: fentaNYL 100 MCG/2 ML VIAL IVP PRN ×2 (09:28→09:36)
[2022-01-26] MEDS ORDERED: oxyCODONE 5 MG TABLET ONE (10:17)
[2022-01-26 10:34] VITALS: BP 108/52
--- NOTE | 2022-01-26 10:59 | ANESTHESIA POST OP EVALUATION ---
Anesthesia Post Eval - Post Anesthesia Eval Vitals: Last Vital Signs Temp 36.5 C 01/26/22 10:26 Pulse 71 01/26/22 10:26 Resp 18 01/26/22 10:26 BP 108/52 L 01/26/22 10:26 Pulse Ox 99 01/26/22 10:26 CV Function Including HR & BP: Stable Pain Control: Satisfactory Nausea & Vomiting: Negative Mental Status: Baseline Respiratory Status: Airway Patent Hydration Status: Satisfactory Anesthesia Complications: None
== END 2022-01-26 06:24 | disposition home or self-care (01) ==
LOC: SDS 06:23
PROVIDERS: ATTEND Surgery
PROC: 0FT44ZZ Resection of Gallbladder, Percutaneous Endoscopic Approach (ICD-10-PCS; principal; 2022-01-26 07:30)
DX: K81.1 Chronic cholecystitis (principal); J45.909 Unspecified asthma, uncomplicated; E66.9 Obesity, unspecified; Z32.02 Encounter for pregnancy test, result negative; Z68.37 Body mass index [BMI] 37.0-37.9, adult; Z87.19 Personal history of other diseases of the digestive system; Z87.891 Personal history of nicotine dependence
CPT/HCPCS: 47562; 81025; A9270; J0131; J0690; J1200; J2765; J7120

== ENCOUNTER 2022-02-04 20:35 | Emergency (ER) | payer MEDICAID ==
[2022-02-04 21:15] LABS: BASOPHILS % (AUTO) 0.4 %; EOSINOPHILS # (AUTO) 0.1 10^3/uL (0.0-0.7); HCT - HEMATOCRIT 39.4 % (37.0-47.0); HGB - HEMOGLOBIN 13.2 g/dL (12.0-16.0); LYMPHOCYTES # (AUTO) 2.8 10^3/uL (1.5-3.5); LYMPHOCYTES % (AUTO) 25.4 %; MEAN CORPUSCULAR HEMOGLOBIN 29.3 pg (27.0-31.0); MEAN CORPUSCULAR HGB CONC 33.5 g/dL (32.0-36.0); MEAN CORPUSCULAR VOLUME 87.6 fL (81.0-99.0); MEAN PLATELET VOLUME 9.7 fL (7.9-10.8); MONOCYTES # (AUTO) 0.9 10^3/uL (0.0-1.0); MONOCYTES % (AUTO) 8.3 %; NEUTROPHILS # (AUTO) 7.1 10^3/uL (1.5-6.6); NEUTROPHILS % (AUTO) 64.5 %; PLT - PLATELET COUNT 351 10^3/uL (130-450); RED CELL DISTRIBUTION WIDTH 13.6 % (12.0-15.0)
[2022-02-04 21:28] LABS: ALBUMIN 3.9 g/dL (3.2-5.5); BILIRUBIN,TOTAL 0.8 mg/dL (0.2-1.0); CALCIUM 8.8 mg/dL (8.5-10.3); CREATININE 0.7 mg/dL (0.4-1.0); TOTAL PROTEIN 7.8 g/dL (6.7-8.2)
--- NOTE | 2022-02-04 22:06 | ED Physician Documentation ---
PD HPI ABD PAIN - Stated complaint Stated Complaint: POST OP COMPLICATIONS - Chief complaint Chief Complaint: General - History obtained from History obtained from: Patient - History of Present Illness Timing - onset: How many days ago (4) Timing - details: Gradual onset Pain level now: 4 Quality: Sharp Radiation: Other (does not radiate) Worsened by: Palpation Associated symptoms: No: Fever, Nausea, Vomiting, Hematemesis, Diarrhea, Constipation Recently seen: Surgery - Additional information Additional information: patient underwent laparoscopic cholecystectomy 01/26/22. Presents c/o 4 days of pain at one of the incision sites Review of Systems Constitutional: reports: Reviewed and negative Cardiac: reports: Reviewed and negative GI: reports: Abdominal Pain (focal abdominal wall pain localized to site of one of the surgical sites associated with recent (01/26/22) procedure), Nausea. 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 : None HEENT: Chronic vision loss Psych: None Musculoskeletal: Osteoarthritis, Other Derm: None Other Past Medical History: Pt being worked up for UC vs IBD vs Crohn's- 01/2022 - Past Surgical History Past Surgical History: Yes General: Colonoscopy /CONDUCTOR ORCHESTRA: section - Present Medications Home Medications: Ambulatory Orders Medication Instructions Recorded Confirmed Docusate Sodium 100Mg Capsule 100 mg PO DAILY #20 capsule 10/06/20 01/24/22 [Colace 100Mg Capsule] Ondansetron Odt [Zofran Odt] 4 mg PO Q6H PRN #15 tablet 01/26/22 oxyCODONE/ACET 5/325 [Percocet 5 1 each PO Q4-6H PRN #30 tablet 01/26/22 mg/325 mg] Ondansetron Odt [Zofran] 4 mg TL Q6H PRN #10 tablet 02/04/22 Oxycodone HCl/Acetaminophen 1 each PO Q6H PRN #10 tablet 02/04/22 [Percocet 5-325 mg Tablet] - Allergies Allergies/Adverse Reactions: Allergies Allergy/AdvReac Type Severity Reaction Status Date / Time amoxicillin Allergy Unknown Verified 02/04/22 21:17 cheese Allergy Hives Verified 02/04/22 21:17 Penicillins Allergy Hives Verified 02/04/22 21:17 Ranch Dressing Allergy Hives Verified 02/04/22 21:17 - Social History Does the pt smoke?: No Smoking Status: Never smoker Does the pt drink ETOH?: No Does the pt have substance abuse?: No - Immunizations Immunizations are current?: Yes - POLST Patient has POLST: No PD ED PE NORMAL - Vitals Vital signs reviewed: Yes - General General: Alert and oriented X 3, No acute distress, Well developed/nourished - Cardiac Cardiac: RRR, No murmur - Respiratory Respiratory: No respiratory distress, Clear bilaterally - Abdomen Abdomen: Normal bowel sounds, Soft, Non distended PD ED PE EXPANDED - Abdomen Abdomen: Surgical scars (area 1 in diagram: surgical site is C/D/I with tissue adhesive in place, no erythema, no fluctuance, no discharge. mild tenderness. Mild firmness c/w recent surgery (similar firmness noted at other surgical (trochar) sites which are not tender)) Abdomen Visual: 1 - tenderness Results - Vitals Vitals: Oxygen O2 Source Room air - Labs Labs: Laboratory Tests 02/04/22 02/04/22 21:08 21:08 WBC 11.0 H RBC 4.50 Hgb 13.2 Hct 39.4 MCV 87.6 MCH 29.3 MCHC 33.5 RDW 13.6 Plt Count 351 MPV 9.7 Neut # (Auto) 7.1 H Lymph # (Auto) 2.8 Holt # (Auto) 0.9 Eos # (Auto) 0.1 Baso # (Auto) 0.0 Absolute Nucleated RBC 0.00 Nucleated RBC % 0.0 Sodium 139 Potassium 4.0 Chloride 103 Carbon Dioxide 26 Anion Gap 10.0 BUN 12 Creatinine 0.7 Estimated GFR (MDRD) 96 Glucose 97 Calcium 8.8 Total Bilirubin 0.8 AST 17 ALT 21 Alkaline Phosphatase 92 Total Protein 7.8 Albumin 3.9 Globulin 3.9 Albumin/Globulin Ratio 1.0 Lipase 38 PD MEDICAL DECISION MAKING - ED course Complexity details: reviewed old records, reviewed results, re-evaluated patient, considered differential, d/w patient ED course: presents with c/o tenderness/pain that is specifically noted at recent surgical site when she had cholecystectomy 01/26/22. She is afebrile, WBC is minimally elevated at 11.0. There is tenderness at the surgical site where her pain c/o is, but no findings on exam to suggest emergent complication. specifically, no findings to suggest hernia, cellulitis, abscess, or other infectious process or post-operative complication. She is given percocet and zofran in ED with rx for same medications electronically submitted to her pharmacy of choice. Advised to call her surgeon tomorrow to arrange for next available appointment even if symptoms resolve. I am prescribing a short course of short-acting opioid pain medication for this patient. 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 I have discussed that the opioids are for short term therapy only, and will not be refilled from the ED Departure - Departure Disposition: , Self Care Clinical Impression: Post-operative pain Condition: Good Instructions: ED Post Op Pain Follow-Up: Rigo Early MD [Provider Admit Priv/Credential] - (Call Monday to arrange next available appointment ) Prescriptions: Oxycodone HCl/Acetaminophen [Percocet 5-325 mg Tablet] 1 each PO Q6H PRN #10 tablet PRN Reason: pain Ondansetron Odt [Zofran] 4 mg TL Q6H PRN #10 tablet PRN Reason: Nausea / Vomiting Comments: At this time, there is no evidence of post-operative complication such as infection, abscess, or hernia through surgical site. It is unclear why you are having the pain at the one incision site. Prescriptions for percocet and zofran have been electronically submitted [facility] in [place]. I am prescribing a short course of narcotic pain medication for you. These are potentially dangerous and addictive medications that should be used carefully. These medications may constipate you. Take an [id number] stool softener (docusate) twice daily with plenty of water while taking these medications. If you go 24 hours without a bowel movement, take [id number] miralax, per package instructions. Do not drink or drive while taking these medications. If you received narcotic or sedating medications while in the emergency department, do not drive for 24 hours. Store this medication in a safe, secure place and out of reach of children. It is a violation of federal law to give or sell this medication to another person or to use in a manner other than prescribed. The ED will not refill narcotic prescriptions, including prescriptions lost or stolen. To dispose of unwanted medications: 1. [facility] at [address] in [place] has a medication drop box. They accept prescription medications (in pill form) Monday through Monday 9:00 a.m. to 5:00 p.m. 2. [facility] accepts prescription medications (in pill form only) for disposal year round. Call for more information. 3. Contact the [facility] for the next [facility] sponsored prescription drug collection event. , [phone], or [phone]; Discharge Date/Time: 02/04/22 23:43
[2022-02-04] MEDS ORDERED: oxyCODONE/ACET 5/325 Prepack 4 PO STA (23:15)
[2022-02-04] MEDS ORDERED: ONDANSETRON ODT 4 MG Prepack 2 TL STA (23:15)
[2022-02-04 23:44] VITALS: BP 112/72
== END 2022-02-04 23:43 | disposition home or self-care (01) ==
LOC: ED 20:35
DX: G89.18 Other acute postprocedural pain (principal)
CPT/HCPCS: 36415; 80053; 83690; 85025; 99282; 99283

== ENCOUNTER 2022-08-07 17:11 | Emergency (ER) | payer MEDICAID ==
[2022-08-07 17:20] VITALS: BP 114/77
--- NOTE | 2022-08-07 18:52 | ED Physician Documentation ---
History of Present Illness - Stated complaint Stated Complaint: CONGESTION,FEVER,CHILLS - Chief complaint Chief Complaint: Resp - Additonal information Additional information: 31 female presents emergency department for evaluation of 4 to 5 days cough cold and congestion however this morning she lost sense of taste and smell. She is vaccinated though not boosted for COVID. She does present with her 8-month-old infant who developed a febrile illness with cough and congestion this morning as well. Patient is not a smoker. She needs a work excuse which is why she has checked in Review of Systems Constitutional: reports: Fever Eyes: reports: Reviewed and negative Nose: reports: Other (Loss of taste and smell) Respiratory: reports: Cough. 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 : None HEENT: Chronic vision loss Psych: None Musculoskeletal: Osteoarthritis, Other Derm: None - Past Surgical History Past Surgical History: Yes General: Colonoscopy /SENIOR BENEFITS SPECIALIST: section - Present Medications Home Medications: Ambulatory Orders Medication Instructions Recorded Confirmed Docusate Sodium 100Mg Capsule 100 mg PO DAILY #20 capsule 10/06/20 08/07/22 [Colace 100Mg Capsule] - Allergies Allergies/Adverse Reactions: Allergies Allergy/AdvReac Type Severity Reaction Status Date / Time amoxicillin Allergy Unknown Verified 08/07/22 17:20 cheese Allergy Hives Verified 08/07/22 17:20 Penicillins Allergy Hives Verified 08/07/22 17:20 Ranch Dressing Allergy Hives Verified 08/07/22 17:20 - Social History Does the pt smoke?: No Smoking Status: Never smoker Does the pt drink ETOH?: No Does the pt have substance abuse?: No - Immunizations Immunizations are current?: Yes - POLST Patient has POLST: No PD ED PE NORMAL - General General: Alert and oriented X 3, No acute distress. No: Well developed/nourished (Obese) - HEENT HEENT: Atraumatic, Ears normal, Moist mucous membranes - Neck Neck: Supple, no meningeal sign, No adenopathy - Cardiac Cardiac: RRR, No murmur - Respiratory Respiratory: No respiratory distress, Clear bilaterally - Abdomen Abdomen: Normal bowel sounds, Soft, Non tender - Back Back: No CVA TTP, No spinal TTP - Derm Derm: Normal color, Warm and dry, No rash - Extremities Extremities: No deformity, No tenderness to palpate, Normal ROM s pain - Neuro Neuro: Alert and oriented X 3, replenishment associate 2-12 intact Eye Opening: Spontaneous Motor: Obeys Commands Verbal: Oriented GCS Score: 15 Results - Vitals Vitals: Vital Signs - 24 hr 08/07/22 17:18 Temperature 36.2 C L Heart Rate 83 Respiratory 16 Rate Blood Pressure 114/77 O2 Saturation 97 Oxygen O2 Source Room air - Labs Labs: Laboratory Tests 08/07/22 19:15 SARS-CoV-2 (PCR) NOT DETECTED PD MEDICAL DECISION MAKING - ED course Complexity details: considered differential, d/w patient ED course: Well-appearing 31-year-old female presents emergency department for evaluation of cough cold and congestion that began about 4 to 5 days ago however this morning she lost sense of taste and smell. She has no recent fevers. Here in the emergency department her vital signs are unremarkable. No hypoxia on room air. Cardiopulmonary auscultation was also negative. Patient is reporting she does not have a COVID test at home and is requiring a work excuse. A COVID test is pending. If positive then she would be a candidate for Paxlovid but will defer unless testing is positive. 08/08/22 0845: covid negative Departure - Departure Disposition: 01 Home, Self Care Clinical Impression: Upper respiratory infection Qualifiers: URI type: unspecified viral URI Qualified Code(s): J06.9 - Acute upper respiratory infection, unspecified Condition: Stable Record reviewed to determine appropriate education?: Yes Comments: You report that you have recently lost taste and smell you have also had some cough and congestion. A COVID swab is pending on you. We will notify you only if positive. If it is positive a prescription for Paxlovid will be sent to your preferred pharmacy as the you have requested treatment if you are COVID- positive. In general however I recommend that you stay well-hydrated. You can take 600 mg of ibuprofen for body aches or alternate with 500 mg of Tylenol. Reasons to return to the emergency department would be the development of any difficulty breathing, any fainting episodes or uncontrolled nausea and vomiting. Discharge Date/Time: 08/07/22 19:23
== END 2022-08-07 19:23 | disposition home or self-care (01) ==
LOC: ED 17:11
DX: J06.9 Acute upper respiratory infection, unspecified (principal); Z20.822 Contact with and (suspected) exposure to COVID-19
CPT/HCPCS: 99282; 99283

== ENCOUNTER 2023-09-20 18:30 | Outpatient (CLI) | payer MEDICAID | END 2023-09-20 18:31 | disposition critical access hospital (66) | LOC: EMS 18:30 | DX: R07.89 Other chest pain (principal); R10.10 Upper abdominal pain, unspecified | CPT/HCPCS: A0425; A0429; A0999 ==

== ENCOUNTER 2023-09-20 18:48 | Emergency (ER) | payer MEDICAID ==
[2023-09-20] MEDS ORDERED: SODIUM CHLORIDE 0.9% 1,000 ML IV STA (19:19)
[2023-09-20 19:29] LABS: BASOPHILS % (AUTO) 0.3 %; EOSINOPHILS # (AUTO) 0.2 10^3/uL (0.0-0.7); HCT - HEMATOCRIT 43.1 % (37.0-47.0); HGB - HEMOGLOBIN 14.3 g/dL (12.0-16.0); LYMPHOCYTES # (AUTO) 2.3 10^3/uL (1.5-3.5); LYMPHOCYTES % (AUTO) 15.7 %; MEAN CORPUSCULAR HEMOGLOBIN 30.2 pg (27.0-31.0); MEAN CORPUSCULAR HGB CONC 33.2 g/dL (32.0-36.0); MEAN CORPUSCULAR VOLUME 90.9 fL (81.0-99.0); MEAN PLATELET VOLUME 9.4 fL (7.9-10.8); MONOCYTES # (AUTO) 0.8 10^3/uL (0.0-1.0); MONOCYTES % (AUTO) 5.5 %; NEUTROPHILS # (AUTO) 11.5 10^3/uL (1.5-6.6); NEUTROPHILS % (AUTO) 77.2 %; PLT - PLATELET COUNT 371 10^3/uL (130-450); RED BLOOD COUNT 4.74 10^6/uL (4.20-5.40); RED CELL DISTRIBUTION WIDTH 12.1 % (12.0-15.0); WHITE BLOOD COUNT 14.8 x10^3/uL (4.8-10.8)
[2023-09-20] MEDS ORDERED: HYDROmorphone 1 MG/ML CARPUJECT IVP STA ×2 (19:48→20:53)
[2023-09-20 19:49] LABS: ALBUMIN 4.3 g/dL (3.2-5.5); ALBUMIN/GLOBULIN RATIO 1.3 (1.0-2.2); BILIRUBIN,TOTAL 0.6 mg/dL (0.2-1.0); CALCIUM 9.3 mg/dL (8.5-10.3); CREATININE 0.8 mg/dL (0.6-1.3); POTASSIUM 4.3 mmol/L (3.5-4.5); TOTAL PROTEIN 7.5 g/dL (6.4-8.9)
[2023-09-20] MEDS ORDERED: ONDANSETRON 4 MG/2 ML VIAL IVP STA (19:57)
[2023-09-20 21:16] LABS: HCG,QUALITATIVE BLOOD NEGATIVE
[2023-09-20] MEDS ORDERED: DEXAMETHASONE 10 MG/ML VIAL IV STA (21:28)
[2023-09-20] MEDS ORDERED: PROMETHAZINE INJ 12.5 MG in SODIUM CHLORIDE 0.9% 50 ML IV STA (21:28)
[2023-09-20] MEDS ORDERED: PROMETHAZINE 25 MG/1 ML VIAL ONE (21:36)
--- NOTE | 2023-09-20 22:25 | ED Physician Documentation ---
PD HPI ABD PAIN - Stated complaint Stated Complaint: CP, CONSTIPATIONS - Chief complaint Chief Complaint: Abd Pain - History obtained from History obtained from: Patient - Additional information Additional information: The patient comes to the emergency department chief complaint of right upper and left lower quadrant abdominal pain that started this afternoon. She has a longstanding history of Crohn's disease for which she is not on any specific medication at this time. She states that she has had some abdominal pain over the last few days but it got worse today. She states her last bowel movement was a couple days ago which is not necessarily unusual for her as she has chronic constipation, but that today, she had the urge to have a bowel movement and had a large amount of yellow diarrhea which she states is unusual. She is concerned that she has a stool obstruction. She denies any fevers or chills. She has had some nausea and 1 episode of vomiting today. She also states she has a headache. No other complaints at this time. 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 : None HEENT: Chronic vision loss Psych: None Musculoskeletal: Osteoarthritis, Other Derm: None - Past Surgical History Past Surgical History: Yes General: Colonoscopy /CLOTH COLORS EXAMINER: section - Present Medications Home Medications: Ambulatory Orders Medication Instructions Recorded Confirmed Dextroamphetamine/Amphetamine 09/20/23 [Adderall 10 mg Tablet] Dextroamphetamine/Amphetamine 10 mg PO DAILY #20 tablet 09/20/23 [Adderall 10 mg Tablet] FLUoxetine [PROzac] 09/20/23 FLUoxetine [PROzac] 20 mg PO DAILY #20 cap 09/20/23 Gabapentin [Neurontin] 09/20/23 Gabapentin [Neurontin] 300 mg PO TID #60 cap 09/20/23 HYDROcod/ACETAM 5/325 [May 5/325] 1 - 2 tablet PO Q6H PRN #7 tablet 09/20/23 Omeprazole 40 mg PO DAILY #20 cap 09/20/23 Omeprazole Magnesium [Prilosec] 09/20/23 Ondansetron Odt [Zofran] 4 mg TL Q6H PRN #10 tablet 09/20/23 Propranolol [Inderal] 09/20/23 Propranolol [Inderal] 10 mg PO DAILY #20 tablet 09/20/23 hydrOXYzine HCL [Hydroxyzine HCl] 09/20/23 hydrOXYzine HCL [Hydroxyzine HCl] 25 mg PO HS PRN #20 tablet 09/20/23 - Allergies Allergies/Adverse Reactions: Allergies Allergy/AdvReac Type Severity Reaction Status Date / Time amoxicillin Allergy Unknown Verified 09/20/23 19:02 cheese Allergy Hives Verified 09/20/23 19:02 Penicillins Allergy Hives Verified 09/20/23 19:02 Ranch Dressing Allergy Hives Verified 09/20/23 19:02 - Social History Does the pt smoke?: No Smoking Status: Never smoker Does the pt drink ETOH?: No Does the pt have substance abuse?: No - Immunizations Immunizations are current?: Yes - POLST Patient has POLST: No PD ED PE NORMAL - Vitals Vital signs reviewed: Yes - General General: Alert and oriented X 3, No acute distress, Well developed/nourished - HEENT HEENT: Atraumatic, PERRL, EOMI, Moist mucous membranes - Neck Neck: Supple, no meningeal sign - Cardiac Cardiac: RRR, No murmur - Respiratory Respiratory: No respiratory distress, Clear bilaterally - Abdomen Abdomen: Soft, Non distended, Other ( over right upper quadrant and left lower quadrant, moderate, without rebound or guarding.) - Derm Derm: Normal color, Warm and dry, No rash - Extremities Extremities: No deformity - Neuro Neuro: Alert and oriented X 3 - Psych Psych: Normal mood, Normal affect Results - Vitals Vitals: Oxygen O2 Source Room air - Labs Labs: Laboratory Tests 09/20/23 09/20/23 09/20/23 19:23 19:23 19:23 WBC 14.8 H RBC 4.74 Hgb 14.3 Hct 43.1 MCV 90.9 MCH 30.2 MCHC 33.2 RDW 12.1 Plt Count 371 MPV 9.4 Neut # (Auto) 11.5 H Lymph # (Auto) 2.3 Lewis # (Auto) 0.8 Eos # (Auto) 0.2 Baso # (Auto) 0.0 Absolute Nucleated RBC 0.00 Nucleated RBC % 0.0 Sodium 138 Potassium 4.3 Chloride 104 Carbon Dioxide 27 Anion Gap 7.0 BUN 8 Creatinine 0.8 Estimated GFR (MDRD) 82 L Glucose 90 Calcium 9.3 Total Bilirubin 0.6 AST 12 ALT 10 Alkaline Phosphatase 60 Total Protein 7.5 Albumin 4.3 Globulin 3.2 Albumin/Globulin Ratio 1.3 Lipase 16 Serum HCG, Qual NEGATIVE - Rads (name of study) CT abdomen and pelvis Relevant Findings:: Final report received, See rad report (Negative) PD Medical Decision Making - ED course Complexity details: reviewed results, re-evaluated patient, considered differential, d/w patient ED course: The patient was worked up with laboratory studies which were unremarkable. CT abdomen and pelvis was ordered and is pending at this time. Patient is been treated symptomatically with IV fluids, Dilaudid, Zofran, Phenergan, and Decadron. She is reported feeling better. At this point in time CT scan of the abdomen and pelvis final interpretation is Negative, and I discussed this with the patient. The patient is stable for discharge home. We have discussed home management of the symptoms, as well as the need for follow-up and the usual indications for return. Departure - Departure Disposition: 01 Home, Self Care Clinical Impression: Abdominal pain Qualifiers: Abdominal location: unspecified location Qualified Code(s): R10.9 - Unspecified abdominal pain Migraine Qualifiers: Migraine type: unspecified Status migrainosus presence: without status migrainosus Intractability: not intractable Qualified Code(s): G43.909 - Migraine, unspecified, not intractable, without status migrainosus Condition: Stable Instructions: ED Abdominal Pain Female Non-Specific Abdominal Pain, ED Constipation Prescriptions: Dextroamphetamine/Amphetamine [Adderall 10 mg Tablet] 10 mg PO DAILY #20 tablet hydrOXYzine HCL [Hydroxyzine HCl] 25 mg PO HS PRN #20 tablet PRN Reason: Anxiety Propranolol [Inderal] 10 mg PO DAILY #20 tablet Gabapentin [Neurontin] 300 mg PO TID #60 cap HYDROcod/ACETAM 5/325 [May 5/325] 1 - 2 tablet PO Q6H PRN #7 tablet PRN Reason: Pain Omeprazole 40 mg PO DAILY #20 cap FLUoxetine [PROzac] 20 mg PO DAILY #20 cap Ondansetron Odt [Zofran] 4 mg TL Q6H PRN #10 tablet PRN Reason: Nausea / Vomiting Comments: Your labs and CT scan look good. There is no evidence of obstructing stool around which diarrhea is leaking. Most likely, you simply have diarrhea and this is part of the overall picture of the rest of your symptoms. This could be from your Crohn's but it also could be from A viral illness, which we have been seen going around the community and causing similar symptoms. In general, the symptoms that this are self-limited and resolve on their own in 3 to 5 days. Your refill prescriptions, as well as a short course of medication for pain and nausea, have been electronically transmitted to the [facility] pharmacy in [place]. You have also been given a dose of long-acting steroid here in the emergency department which should help with any contribution from your Crohn's. Please continue to pursue establishment with primary care, as we will not be able to do repeated refills on your chronic medications through the ED. Please also consider reestablishing with gastroenterology, once you have gotten established with a new primary care physician. Forms: PCP List Discharge Date/Time: 09/20/23 23:10
--- NOTE | 2023-09-20 22:34 | CT Report ---
PROCEDURE: ABDOMEN/PELVIS W INDICATIONS: LLQ abd pain, h/o crohns CONTRAST: Omni 300 100ml TECHNIQUE: After the administration of intravenous contrast, a CT scan of the abdomen and pelvis was performed. Images were recorded and evaluated at appropriate window settings. Reformats: coronal and sagittal. F or radiation dose reduction, the following was used: automated exposure control, adjustment of mA and /or kV according to patient size. COMPARISON: CT abdomen pelvis 12/28/2021. FINDINGS: Image quality: Diagnostic. Lung bases and heart: Unremarkable. Liver: No solid mass. Gallbladder and biliary tree: Surgically absent Spleen: No splenomegaly. Pancreas: No pancreatic ductal dilation. Adrenals: No adrenal nodule. Kidneys and ureters: No hydronephrosis. No renal cystic lesion which requires follow up. No solid mas s. Bowel and peritoneum: No small bowel obstruction. No abnormal bowel wall thickening. Normal caliber a ppendix. No pathologic free fluid. No pneumoperitoneum. Lymph nodes: No central or retroperitoneal adenopathy. Vessels: No infrarenal aortic aneurysm. PELVIS Reproductive organs: IUD is in place. Bladder: No abnormal wall thickening, accounting for underdistention. Pelvic lymph nodes: No pelvic adenopathy by size criteria. Bones: No acute or suspicious osseous abnormality. Other: No significant ventral or inguinal hernia. IMPRESSION: No acute findings in the abdomen or pelvis to explain patient's symptoms. Reviewed by: Raquel Sow MD on 09/20/2023 10:33 PM PST Approved by: Raquel Sow MD on 09/20/2023 10:33 PM PST Station ID: [id number]
[2023-09-20] MEDS ORDERED: iohexoL-300 100 ML VIAL IVP ONE (22:38)
[2023-09-20 23:07] VITALS: BP 139/87; O2SAT 97
== END 2023-09-20 23:10 | disposition home or self-care (01) ==
LOC: EDUNIT# → ED 18:48
DX: G43.909 Migraine, unspecified, not intractable, without status migrainosus (principal); R10.11 Right upper quadrant pain; R10.32 Left lower quadrant pain; Z79.899 Other long term (current) drug therapy
CPT/HCPCS: 36415; 74177; 80053; 83690; 84703; 85025; 96365; 96375; 96376; 99283; 99284; J1170; J7040; Q9967

== ENCOUNTER 2023-09-23 13:54 | Emergency (ER) | payer MEDICAID ==
--- NOTE | 2023-09-23 14:03 | ED Physician Documentation ---
History of Present Illness - Stated complaint Stated Complaint: MED REFIL - Chief complaint Chief Complaint: General - Additonal information Additional information: 33-year-old female presents requesting prior authorization for Adderall that was ordered a few days ago. The patient has been on Adderall for quite a while for her "autism" and recently moved from [place] to the local area and has not established a PCP here. She was seen a few days ago, got a temporary refill of the Adderall from our emergency department but it required prior authorization and she is asking for that to be done now. She denies any other concerns today. PD PAST MEDICAL HISTORY - Past Medical History Past Medical History: Yes Cardiovascular: None Respiratory: Asthma Neuro: Migraines Endocrine/Autoimmune: None GI: Colon polyps, Pancreatitis, Ulcerative colitis, Other [employer]IP[employer]ED [employer] BOARDS: None : None HEENT: Chronic vision loss Psych: None Musculoskeletal: Osteoarthritis, Other Derm: None - Past Surgical History Past Surgical History: Yes General: Colonoscopy /[employer] BOARDS: section - Present Medications Home Medications: Ambulatory Orders Medication Instructions Recorded Confirmed Dextroamphetamine/Amphetamine 09/20/23 [Adderall 10 mg Tablet] Dextroamphetamine/Amphetamine 10 mg PO DAILY #20 tablet 09/20/23 [Adderall 10 mg Tablet] FLUoxetine [PROzac] 09/20/23 FLUoxetine [PROzac] 20 mg PO DAILY #20 cap 09/20/23 Gabapentin [Neurontin] 09/20/23 Gabapentin [Neurontin] 300 mg PO TID #60 cap 09/20/23 HYDROcod/ACETAM 5/325 [[place] 5/325] 1 - 2 tablet PO Q6H PRN #7 tablet 09/20/23 Omeprazole 40 mg PO DAILY #20 cap 09/20/23 Omeprazole Magnesium [Prilosec] 09/20/23 Ondansetron Odt [Zofran] 4 mg TL Q6H PRN #10 tablet 09/20/23 Propranolol [Inderal] 09/20/23 Propranolol [Inderal] 10 mg PO DAILY #20 tablet 09/20/23 hydrOXYzine HCL [Hydroxyzine HCl] 09/20/23 hydrOXYzine HCL [Hydroxyzine HCl] 25 mg PO HS PRN #20 tablet 09/20/23 Dextroamphetamine/Amphetamine 10 mg PO DAILY #10 tab 09/23/23 [Adderall 10 mg Tablet] - Allergies Allergies/Adverse Reactions: Allergies Allergy/AdvReac Type Severity Reaction Status Date / Time amoxicillin Allergy Unknown Verified 09/23/23 13:56 cheese Allergy Hives Verified 09/23/23 13:56 Penicillins Allergy Hives Verified 09/23/23 13:56 Ranch Dressing Allergy Hives Verified 09/23/23 13:56 - Social History Does the pt smoke?: No Smoking Status: Never smoker Does the pt drink ETOH?: No Does the pt have substance abuse?: No - Immunizations Immunizations are current?: Yes - POLST Patient has POLST: No PD ED PE NORMAL - Vitals Vital signs reviewed: Yes - General General: Alert and oriented X 3, No acute distress, Well developed/nourished - Neuro Neuro: Alert and oriented X 3 Eye Opening: Spontaneous - Psych Psych: Normal mood, Normal affect Results - Vitals Vitals: Vital Signs - 24 hr 09/23/23 13:56 Temperature 36.6 C Heart Rate 60 Respiratory 16 Rate Blood Pressure 113/69 O2 Saturation 100 Oxygen O2 Source Room air PD Medical Decision Making - ED course Complexity details: reviewed old records, d/w patient ED course: 33-year-old female presenting requesting we complete prior authorization for her Adderall that was prescribed a few days ago. I discussed with patient that that is typically not something done in the ER and as Adderall is not an emergent medication that she needs to establish primary care and goes through the appropriate channels to get back on the Adderall. The patient of course is quite frustrated with this and therefore I did advise that I could resubmit a short course of Adderall as a prescription and I am happy to talk with the pharmacist as if there is an alternative medication or other generic that may be covered without prior authorization otherwise the patient will need to establish care or follow-up with her prior PCP. The patient plans to go to [facility] and will have the pharmacist call me to see if there is a resolution. Departure - Departure Disposition: 01 Home, Self Care Clinical Impression: Medication refill Condition: Good Prescriptions: Dextroamphetamine/Amphetamine [Adderall 10 mg Tablet] 10 mg PO DAILY #10 tab Comments: You received a prescription for 20 tablets on 09/20/23, therefore it is not time for refills. This is not a medication that is refilled in the ER. You must see prescribing provider. Forms: PCP List
[2023-09-23 14:06] VITALS: BP 113/69; O2SAT 100
== END 2023-09-23 14:10 | disposition home or self-care (01) ==
LOC: ED 13:54
DX: Z76.0 Encounter for issue of repeat prescription (principal)
CPT/HCPCS: 99281; 99282

== ENCOUNTER 2024-04-05 07:08 | Outpatient (CLI) | payer MEDICAID | END 2024-04-05 23:59 | disposition short-term general hospital (02) | LOC: EMS 07:08 | DX: S09.91XA Unspecified injury of ear, initial encounter (principal); H92.02 Otalgia, left ear; R11.0 Nausea; W21.03XA Struck by baseball, initial encounter | CPT/HCPCS: A0425; A0429; A0999 ==

== ENCOUNTER 2024-04-23 08:33 | Outpatient (CLI) | payer MEDICAID | END 2024-04-23 23:59 | disposition critical access hospital (66) | LOC: EMS 08:33 | DX: M79.602 Pain in left arm (principal); M25.562 Pain in left knee | CPT/HCPCS: A0425; A0429; A0999 ==

== ENCOUNTER 2024-04-23 08:52 | Emergency (ER) | payer MEDICAID ==
--- NOTE | 2024-04-23 09:09 | ED Physician Documentation ---
PD HPI UPPER EXT INJURY - Stated complaint Stated Complaint: L/KNEE AND ARM PX - History obtained from History obtained from: Patient, EMS - History of Present Illness Location: Left, Arm Type of injury: Fall (she had some alcohol drinks last evening, which she says is unusual/occasional, and does not remember fall/etc but awoke this morning with consdierable pain left humerus. Some pain in knee and forehead and moderate headache. [place] without vomiting but not sure if hangover vs head injury.) Where injury occurred: Home Timing - onset: Last night Timing - details: Still present Worsened by: Moving Associated symptoms: Swelling. 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 - Present Medications Home Medications: Ambulatory Orders Medication Instructions Recorded Confirmed FLUoxetine [PROzac] 20 mg PO DAILY #20 cap 09/20/23 Gabapentin [Neurontin] 300 mg PO TID #60 cap 09/20/23 HYDROcod/ACETAM 5/325 [[place] 5/325] 1 - 2 tablet PO Q6H PRN #7 tablet 09/20/23 Omeprazole 40 mg PO DAILY #20 cap 09/20/23 Ondansetron Odt [Zofran] 4 mg TL Q6H PRN #10 tablet 09/20/23 Propranolol [Inderal] 10 mg PO DAILY #20 tablet 09/20/23 hydrOXYzine HCL [Hydroxyzine HCl] 25 mg PO HS PRN #20 tablet 09/20/23 Dextroamphetamine/Amphetamine 10 mg PO DAILY #10 tab 09/23/23 [Adderall 10 mg Tablet] Meloxicam [Mobic] 7.5 mg PO BID 10 Days #20 tablet 04/23/24 Oxycodone HCl/Acetaminophen 1 each PO Q6H PRN #25 tablet 04/23/24 [Percocet 5-325 mg Tablet] methocarbamoL [Robaxin] 500 mg PO Q6H PRN #30 tablet 04/23/24 - Allergies Allergies/Adverse Reactions: Allergies Allergy/AdvReac Type Severity Reaction Status Date / Time amoxicillin Allergy Unknown Verified 04/23/24 09:09 cheese Allergy Hives Verified 04/23/24 09:09 Penicillins Allergy Hives Verified 04/23/24 09:09 Ranch Dressing Allergy Hives Verified 04/23/24 09:09 - Social History Does the pt smoke?: No Smoking Status: Never smoker Does the pt drink ETOH?: No Does the pt have substance abuse?: No - Immunizations Immunizations are current?: Yes - POLST Patient has POLST: No PD ED PE NORMAL - Vitals Vital signs reviewed: Yes - General General: Alert and oriented X 3, Well developed/nourished, Other (appears in considerable pain with any left arm movement. ) - HEENT HEENT: Other (tender on forehead with local swelling. She does not remember the injury, perhaps due to alcohol, but still concern for LOC/nonremembering, and felt head CT in order.) - Neck Neck: Supple, no meningeal sign, No bony TTP - Cardiac Cardiac: RRR, No murmur - Respiratory Respiratory: No respiratory distress, Clear bilaterally - Abdomen Abdomen: Soft, Non tender - Derm Derm: Normal color, Warm and dry - Extremities Extremities: Other (guarding movement of the humerus left. Knee tenderness without limited ROM per se. Has some anterior effusion. ) Results - Vitals Vitals: Vital Signs - 24 hr 04/23/24 04/23/24 09:05 11:07 Temperature 36.7 C Heart Rate 65 68 Respiratory 18 17 Rate Blood Pressure 109/88 H 130/79 O2 Saturation 99 100 Oxygen O2 Source Room air - Labs Labs: Laboratory Tests 04/23/24 04/23/24 09:18 09:18 WBC 12.6 H RBC 4.02 L Hgb 11.8 L Hct 37.1 MCV 92.3 MCH 29.4 MCHC 31.8 L RDW 13.0 Plt Count 409 MPV 9.1 Neut # (Auto) 10.6 H Lymph # (Auto) 1.1 L [place] # (Auto) 0.7 Eos # (Auto) 0.1 Baso # (Auto) 0.0 Absolute Nucleated RBC 0.00 Nucleated RBC % 0.0 Sodium 137 Potassium 3.6 Chloride 105 Carbon Dioxide 25 Anion Gap 7.0 BUN 10 Creatinine 0.7 Estimated GFR (MDRD) 95 Glucose 95 Calcium 9.2 Total Bilirubin 1.0 AST 18 ALT 14 Alkaline Phosphatase 101 Total Protein 6.9 Albumin 4.0 Globulin 2.9 Albumin/Globulin Ratio 1.4 Lipase 10 L Ethyl Alcohol 11.0 - Rads (name of study) head CT Relevant Findings:: Prelim report reviewed (no ICH nor acute process. ), EMP independent interpretation of test Procedures - Splint (location) - Minor left humerus sugartong Splint applied by: Nurse, Ingris Type of splint: Fiberglass Other: Patient tolerated well, No complications, Neurovascular intact, Sling provided PD Medical Decision Making - ED course Complexity details: reviewed results (knees are okay. She did hit head with dazed and some concussive sympoms, so got CT head that was okay. Left humerus with shaft fracture with minimal angulation.), re-evaluated patient (having considerable pain left humerus understandably. Given IV meds of toradol dilaudid as I was anticipating needing re-dosing and several meds. So IV route chosen. ), considered differential, d/w patient, d/w senior clinical consultant (phone consultation with Dr. Diallo - typically conservative nonoperative with sugar tong and sling. Office in 1 week. ) Departure - Departure Disposition: 01 Home, Self Care Clinical Impression: Fall from slip, trip, or stumble, Humerus shaft fracture, Knee contusion, Facial contusion Condition: Stable Instructions: ED Fx Upper Ext Follow-Up: Orthopedic Care [Provider Group] Prescriptions: Meloxicam [Mobic] 7.5 mg PO BID 10 Days #20 tablet Oxycodone HCl/Acetaminophen [Percocet 5-325 mg Tablet] 1 each PO Q6H PRN #25 tablet PRN Reason: pain methocarbamoL [Robaxin] 500 mg PO Q6H PRN #30 tablet PRN Reason: Spasms Comments: You have a fracture in the shaft of the humerus. We did review the print of the x-ray. As seen in the picture, it is minimally angulated and pretty much in a good position. The splint and sling are meant to keep it in position and have less movement and therefore less pain and more prompt healing. Will be swelling in likely bruising develop around that area of the arm and also around the elbow due to this. The splint can accommodate swelling but if it does feel too tight subsequently, return to the ER for changing of the splint. Otherwise ice elevate and rest to reduce swelling. Anti-inflammatories regularly would be appropriate and helpful. Add Tylenol every 4-6 hours if needed for pain and I would suggest going 500 to 650 mg 4 times daily regularly for the next week on the Tylenol in addition to an NSAID. The biceps and triceps muscles in the arm can have spasming related to the injury. Robaxin muscle relaxant may be helpful for this. Add oxycodone/acetaminophen if needed for worse pains. I wrote for a supply that should be able to last the first week or so. I sent your prescriptions to your preferred pharmacy. Follow-up with orthopedics in about a week, call later today for an appointment and tell them you are seen in the ER and to have a follow-up on a fracture. X-rays of your knee are good but they will still be sore. We did a scan of your head and there is no signs of skull injury or bleeding in internal to the brain. You may still have some periodic headaches. My narcotic instructionsI am prescribing a short course of narcotic pain medi cation for you. These are potentially dangerous and addictive medications that should be used carefully. These medications may constipate you. Take an [id number]-[id number] stool softener such as docusate twice daily with plenty of water while taking these medications. If you go 24 hours without a bowel movement, take [id number]-lcb-lbathol MiraLAX, per package instructions. Do not drink or drive while taking these medications. If you received narcotic or sedating medications while in the emergency department do not drive for 24 hours. Store this medication in a safe, secure place and out of reach of children. It is a violation of federal law to give or sell this medication to another person or to use in a manner other than prescribed. The ED will not refill narcotic prescriptions, including prescriptions lost or stolen. You can dispose of unwanted medications at the [facility]'s office or at several pharmacies such as [facility]. Forms: PCP List Discharge Date/Time: 04/23/24 12:03
[2024-04-23] MEDS: HYDROmorphone 1 MG/ML CARPUJECT IVP STA ×3 (09:22→11:47)
[2024-04-23] MEDS: KETOROLAC 15 MG/ML VIAL IVP STA (09:22)
[2024-04-23 09:24] LABS: BASOPHILS % (AUTO) 0.2 %; EOSINOPHILS # (AUTO) 0.1 10^3/uL (0.0-0.7); EOSINOPHILS % (AUTO) 0.6 %; HCT - HEMATOCRIT 37.1 % (37.0-47.0); HGB - HEMOGLOBIN 11.8 g/dL (12.0-16.0); LYMPHOCYTES # (AUTO) 1.1 10^3/uL (1.5-3.5); LYMPHOCYTES % (AUTO) 8.5 %; MEAN CORPUSCULAR HEMOGLOBIN 29.4 pg (27.0-31.0); MEAN CORPUSCULAR HGB CONC 31.8 g/dL (32.0-36.0); MEAN CORPUSCULAR VOLUME 92.3 fL (81.0-99.0); MEAN PLATELET VOLUME 9.1 fL (7.9-10.8); MONOCYTES # (AUTO) 0.7 10^3/uL (0.0-1.0); MONOCYTES % (AUTO) 5.8 %; NEUTROPHILS # (AUTO) 10.6 10^3/uL (1.5-6.6); NEUTROPHILS % (AUTO) 84.2 %; PLT - PLATELET COUNT 409 10^3/uL (130-450); RED BLOOD COUNT 4.02 10^6/uL (4.20-5.40); WHITE BLOOD COUNT 12.6 x10^3/uL (4.8-10.8)
[2024-04-23 09:40] LABS: ALBUMIN/GLOBULIN RATIO 1.4 (1.0-2.2); CALCIUM 9.2 mg/dL (8.5-10.3); CREATININE 0.7 mg/dL (0.6-1.3); POTASSIUM 3.6 mmol/L (3.5-4.5); TOTAL PROTEIN 6.9 g/dL (6.4-8.9)
--- NOTE | 2024-04-23 10:20 | XRAY Report ---
PROCEDURE: Humerus LT INDICATIONS: fall with mid humeral pain TECHNIQUE: 2 views of the humerus were acquired. COMPARISON: None. FINDINGS: Bones: Displaced humerus shaft fracture. No suspicious bony lesions. Soft tissues: No suspicious soft tissue calcifications or masses. IMPRESSION: Displaced humerus shaft fracture. Reviewed by: Chris Blas MD on 04/23/2024 10:18 AM PDT Approved by: Chris Blas MD on 04/23/2024 10:18 AM PDT Station ID: [id number]
--- NOTE | 2024-04-23 10:21 | XRAY Report ---
PROCEDURE: Knee 3V LT INDICATIONS: fall with anterior knee pain TECHNIQUE: 3 views of the knee(s) were acquired. COMPARISON: None. FINDINGS: Bones: No fractures or dislocations. No suspicious bony lesions. Soft tissues: No knee joint effusion. No suspicious soft tissue calcifications or masses. IMPRESSION: No acute bony abnormality. Reviewed by: Chris Blas MD on 04/23/2024 10:19 AM PDT Approved by: Chris Blas MD on 04/23/2024 10:19 AM PDT Station ID: [id number]
--- NOTE | 2024-04-23 10:48 | CT Report ---
PROCEDURE: Head WO INDICATIONS: fall with head contusion. 02/01 HARE TECHNIQUE: Noncontrast 4.5 mm thick angled axial sections acquired from the foramen magnum to the vertex. For r adiation dose reduction, the following was used: automated exposure control, adjustment of mA and/or kV according to patient size. COMPARISON: None. FINDINGS: Image quality: Excellent. CSF spaces: Basal cisterns are patent. No extra-axial fluid collections. Ventricles are normal in size and shape. Brain: No midline shift. No intracranial masses or hemorrhage. Hallman-white matter interface is norm al. Skull and face: Calvarium and visualized facial bones are intact, without suspicious lesions. Fronta l scalp contusion. Sinuses: Visualized sinuses and mastoids are clear. IMPRESSION: No acute intracranial pathology. Frontal scalp contusion without underlying fracture. Reviewed by: Chris Blas MD on 04/23/2024 10:46 AM PDT 1.Approved by: Chris Blas MD on 04/23/2024 10:46 AM PDT Station ID: [id number]
[2024-04-23 11:11] VITALS: BP 130/79; O2SAT 100
== END 2024-04-23 12:03 | disposition home or self-care (01) ==
LOC: EDUNIT# → ED 08:52
DX: S80.02XA Contusion of left knee, initial encounter (principal); S00.83XA Contusion of other part of head, initial encounter; S42.302A Unspecified fracture of shaft of humerus, left arm, initial encounter for closed fracture; W19.XXXA Unspecified fall, initial encounter
CPT/HCPCS: 29105; 36415; 70450; 73060; 73562; 80053; 82077; 83690; 85025; 96374; 96376; 99284; J1170

== ENCOUNTER 2024-06-14 11:26 | Outpatient (CLI) | payer MEDICAID | END 2024-06-14 23:59 | disposition short-term general hospital (02) | LOC: EMS 11:26 | DX: M25.511 Pain in right shoulder (principal); M25.521 Pain in right elbow; M25.531 Pain in right wrist; W01.0XXA Fall on same level from slipping, tripping and stumbling without subsequent striking against object, initial encounter; Y93.E1 Activity, personal bathing and showering; Y92.031 Bathroom in apartment as the place of occurrence of the external cause | CPT/HCPCS: A0425; A0429; A0999 ==